=== PATIENT | female | born 1980 | race Two or more races ===

== ENCOUNTER 2023-03-26 20:36 | Outpatient (REF) | payer BC, SELFPAY ==
[2023-03-31 17:07] LABS: Age Gdln ACOG Testing Note (.); HPV Aptima Negative (Negative); IGP, Aptima HPV, rfx 16/18,45 Note (.)
== END 2023-03-26 20:37 | disposition home or self-care (01) ==
LOC: LAB 20:36
PROVIDERS: PCP Family Medicine; Visit Provider Physician Assistant
DX: Z01.419 Encounter for gynecological examination (general) (routine) without abnormal findings (principal)
CPT/HCPCS: 87624; G0145

== ENCOUNTER 2023-03-27 14:31 | Outpatient (OUT) | payer BC, SELFPAY ==
[2023-03-27 14:44] LABS: Basophils Percent Auto 0.4 % (0.2-2.0); Eosinophils Absolute Auto 0.1 10^3/uL (0.0-0.7); Eosinophils Percent Auto 1.4 % (0.9-7.0); Hemoglobin 13.7 g/dL (12.0-16.0); Immature Granulocytes Abs Auto 0.04 10^3/uL (0.00-0.03); Immature Granulocytes Pct Auto 0.4 % (0.0-0.5); Lymphocytes Absolute Auto 2.8 10^3/uL (1.2-3.8); Lymphocytes Percent Auto 29.8 % (20.5-60.0); Mean Corpuscular HGB Conc 34.3 g/dL (29.9-35.2); Mean Corpuscular Hemoglobin 30.3 pg (26.7-34.0); Mean Corpuscular Volume 88.5 fL (81.0-99.0); Mean Platelet Volume 9.7 fL (9.5-13.5); Monocytes Absolute Auto 0.6 10^3/uL (0.3-0.8); Monocytes Percent Auto 6.6 % (1.7-12.0); Neutrophils Absolute Auto 5.7 10^3/uL (1.4-6.5); Neutrophils Percent Auto 61.4 % (43.0-75.0); Platelet Count 326 10^3/uL (150-450); Red Blood Count 4.52 10^6/uL (4.20-5.40); White Blood Count 9.3 10^3/uL (4.0-11.0)
[2023-03-27 14:56] LABS: Prothrombin Time 9.6 sec (9.0-11.6)
[2023-03-27 15:01] LABS: INR <0.93
[2023-03-27 15:13] LABS: Estimated Average Glucose 94 mg/dL; Glycohemoglobin A1C 4.9 % (4.5-6.2)
[2023-03-27 15:44] LABS: HCG Quantitative <1 mIU/mL; Thyroid Stimulating Hormone 1.667 uIU/mL (0.358-3.740)
== END 2023-03-27 14:32 | disposition home or self-care (01) ==
LOC: LAB 14:31
PROVIDERS: PCP Family Medicine; Visit Provider Obstetrics & Gynecology
DX: R58 Hemorrhage, not elsewhere classified (principal)
CPT/HCPCS: 36415; 83036; 84439; 84443; 84702; 85025; 85610

== ENCOUNTER 2023-03-28 18:55 | Outpatient (OUT) | payer BC, SELFPAY ==
--- NOTE | 2023-03-28 19:02 | US_ITS ---
The [address] [address] Patient Name: NICOLASA COLBY MRN: [id number] date: 1980 Sex: F Assigned Patient Location: US Current Patient Location: Accession/Order Number: [id number] Exam Date: 03/28/2023 19:10 Report Date: 03/29/2023 07:38 At the request of: SAGE MARION Procedure: US pelvis w/ transvaginal EXAMINATION: US pelvis w/ transvaginal HISTORY: BLEEDING [id number] COMPARISON: No relevant comparison available. FINDINGS: The uterus is normal in size, contour and echotexture measuring 7.3 x 4.0 x 5.2 cm. No focal myometrial mass The endometrium measures 9 mm, normal. The right ovary measures 2.7 x 1.5 x 2.1 cm. Normal color and Doppler flow. 1.4 cm area of anechoic echogenicity, follicle versus cyst. The left ovary measures 3.5 x 2.2 x 2.5 cm. Normal color Doppler flow. Area of hypoechogenicity measuring 2.7 cm with some low level echoes and possibly calcification but no definite internal color flow Small amount of free pelvic fluid likely physiologic US/US pelvis w/ transvaginal IMPRESSION: 2.7 cm left ovarian cystic lesion, I favor a complex cyst or collapsing functional cyst Electronically authenticated by: FAYE MEDEL Date: 03/29/2023 07:38
== END 2023-03-28 18:56 | disposition home or self-care (01) ==
LOC: US 18:55
PROVIDERS: PCP Family Medicine; Visit Provider Obstetrics & Gynecology
DX: R58 Hemorrhage, not elsewhere classified (principal); N83.292 Other ovarian cyst, left side
CPT/HCPCS: 76830; 76856

== ENCOUNTER 2023-05-01 09:26 | Outpatient (OUT) | payer BC, SELFPAY ==
[2023-05-01 09:38] LABS: Bilirubin Urine NEGATIVE (NEGATIVE); Blood Urine TRACE-I (NEGATIVE); Clarity Urine CLEAR (CLEAR); Color Urine LT. YELLOW (YELLOW); Glucose Urine UA NEGATIVE (NEGATIVE); Ketones Urine TRACE mg/dL (NEGATIVE); Leukocyte Esterase Urine NEGATIVE (NEGATIVE); Nitrite Urine NEGATIVE (NEGATIVE); Protein Urine NEGATIVE (NEG/TRACE); Specific Gravity Urine <=1.005 (1.005-1.025); Urobilinogen Urine 0.2 EU/dL (0.2-1.0)
[2023-05-01 09:47] LABS: Bacteria Urine TRACE #/HPF (NONE SEEN); Cast Seen? NONE SEEN #/LPF (NONE SEEN); Crystals Seen? None Seen #/HPF (None Seen); Mucus Urine NONE SEEN (NONE SEEN); RBC Urine 0-2 #/HPF (0-2); Squamous Epithelial Cell Urine FEW #/LPF (NONE/RARE); WBC Urine NONE SEEN #/HPF (NONE SEEN)
== END 2023-05-01 09:27 | disposition home or self-care (01) ==
LOC: LAB 09:26
PROVIDERS: PCP Family Medicine; Visit Provider Family Medicine
DX: R30.0 Dysuria (principal)
CPT/HCPCS: 81001; 87086

== ENCOUNTER 2023-05-21 16:24 | Outpatient (OUT) | payer BC, SELFPAY ==
--- NOTE | 2023-05-21 | MM_ITS ---
Patient Name: NICOLASA COLBY MR#: [id number] : 1980 Exam Date: 05/21/2023 Ordering Doctor: DR Vince Escudero . RADIOLOGY REPORT PROCEDURE: MM TOMOSYNTHESIS SCREENING BI COMPARISON: MG MAMM SCREEN 3D DAYANNA CAD, 05/09/2022. MG MAMM SCREEN 3D DAYANNA CAD, 04/27/2021. INDICATIONS: Screening for malignant Calculator Name NCI Breast Cancer Risk Assessment Tool 5 Year Breast Cancer Risk 0.70% Lifetime Breast Cancer Risk 9.40% Personal Breast Cancer No Personal Ovarian Cancer No Treatments None Family Cancers Aunt-maternal with ovarian cancer at age 58; Mother with uterine cancer at age 34; Aunt-paternal with liver cancer at age ~50. LOCATION: [facility] BREAST COMPOSITION: Scattered areas fibroglandular density. FINDINGS: DIAGNOSTIC CATEGORY 1--NEGATIVE. RIGHT BREAST: No significant suspicious finding. No significant change has occurred. LEFT BREAST: No significant suspicious finding. No significant change has occurred. RECOMMENDATIONS: ROUTINE MAMMOGRAM AND CLINICAL EVALUATION IN 12 MONTHS. PLEASE NOTE: A NORMAL MAMMOGRAM DOES NOT EXCLUDE THE POSSIBILITY OF BREAST CANCER. A CLINICALLY SUSPICIOUS PALPABLE LUMP SHOULD BE BIOPSIED. Dictated by: Humberto Wahl M.D. on 05/22/2023 at 13:04 Approved by: Humberto Wahl M.D. on 05/22/2023 at 13:09
== END 2023-05-21 16:25 | disposition home or self-care (01) ==
LOC: MAMMO 16:25
PROVIDERS: PCP Family Medicine; Visit Provider Obstetrics & Gynecology
DX: Z12.31 Encounter for screening mammogram for malignant neoplasm of breast (principal); Z80.41 Family history of malignant neoplasm of ovary; Z80.8 Family history of malignant neoplasm of other organs or systems
CPT/HCPCS: 77063; 77067

== ENCOUNTER 2023-06-05 | Outpatient (REF) | payer BC, SELFPAY ==
--- OUTSIDE RECORDS SUMMARY | 2023-07-15 08:24 | XMS_ITS | CCD ---
Author Name Unknown Address [address] [place] [address] Organization [facility] Care Team Providers Care Porcelain Finisher Name Role Phone HOY ., DR LAVARADO Admitting Unavailable HOY ., DR ALVARADO Attending [...] ALVARADO Consulting Unavailable Trupti Santos Unavailable SAGE ESCUDERO Attending Unavailable SAGE ESCUDERO Attending Unavailable Sage Escudero Attending Provider Sage Escudero Attending Unavailable Sage Escudero Admitting Unavailable Medications Current Medications Medication Drug Class(es) [...] Test Name Value Interpretation Reference Range Facility [facility] 07-05-2023 L Specimen: [id number] Received: 07/08/23 Status: CANDELARIO Gregorio Num: [id number] Spec Type: Surgical Subm Dr: Sage Escudero Tissues: A Fallopian Tube - Sterilization (BILATERAL FT) B Soft Tissue/Surgical Margin-Other than Tumor,Mass,Lip or Shannon (RT OVARIAN CYS Procedures: HE/5, Gross/Micro L4, Gross/Micro L2 Age/ Patient Sex Location Account Attending Physician Nicolasa Richter 43/F LABELL [id number] Sage Escudero SPEC NUM: [id number] RECD: 07/08/23 STATUS: CANDELARIO GREGORIO NUM: [id number] NATHANIEL: 07/05/[address]: Sage Escudero ENTERED: 07/08/23 [facility] DR: Lencho,Lab SPEC TYPE: Surgical DEPT: KAREN MCNEIL ORDERED: HE/5, Gross/Micro L4, Gross/Micro L2 ORDERED: HE/5, Gross/Micro L4, Gross/Micro L2 Pathological Diagnosis A. Bilateral fallopian tubes, resection: No significant abnormality. B. Cyst wall, right ovary, resection: Benign serous cyst. Clinical Information Request for sterilization, pain, menorrhagia Gross Description A. Received in formalin labeled with the patient's name, date of and bilateral fallopian tubes are 2 segments of fimbriated fallopian tube with no laterality specified, 3.5 x 0.7 cm and 4.5 x 0.6 cm. Both segments are slightly tortuous and demonstrate a paulson- frye dull serosa. Sectioning demonstrates a central lumens. The fimbria are purple-red, lush, and otherwise unremarkable. [employer] sections are submitted in 4 cassettes as follows: A1-A2 - [place] segment with fimbria entirely submitted A3-A4 - Longer segment with fimbria entirely submitted B. Received in formalin labeled with the patient's name, date of and right ovarian cyst wall is a 1.6 x 1.5 x 0.3 cm aggregate of white-paulson soft tissue fragments consistent with cyst wall. The largest fragment is sectioned. Entirely submitted in one cassette labeled B1. Specimen: [id number] Received: 07/08/23 Status: CANDELARIO Sean Num: [id number] Spec Type: Surgical Subm : Sage Escudero Tissues: A Fallopian Tube - Sterilization (BILATERAL FT) B Soft Tissue/Surgical Margin-Other than Tumor,Mass,Lip or Shannon (RT OVARIAN CYS Procedures: HE/5, Gross/Micro L4, Gross/Micro L2 Patient: Nicolasa Richter [id number] (Continued) Specimen: [id number] Received: 07/08/23 (Continued) Signed (signatur e on file) Lazara Grant MD 07/10/232240 Specimen: [id number] Received: 07/08/23 Status: CANDELARIO Gregorio Num: [id number] Spec Type: Surgical Subm Dr: Sage Escudero Tissues: A Fallopian Tube - Sterilization (BILATERAL FT) B Soft Tissue/Surgical Margin-Other than Tumor,Mass,Lip or Shannon (RT OVARIAN CYS Procedures: HE/5, Gross/Micro L4, Gross/Micro L2 Patient: Nicolasa Richter [id number] (Continued) Specimen: [id number] Received: 07/08/23 (Continued) CPT Codes 92161, 71464 Specimen: [id number] Received: 07/08/23 Status: CANDELARIO Gregorio Num: [id number] Spec Type: Surgical Subm Dr: Sage Escudero Tissues: A Fallopian Tube - Sterilization (BILATERAL FT) B Soft Tissue/Surgical Margin-Other than Tumor,Mass,Lip or Shannon (RT OVARIAN CYS Procedures: HE/5, Gross/Micro L4, Gross/Micro L2 Patient: Nicolasa Richter [id number] (Continued) Signed (signatur e on file) Lazara Grant MD 07/10/23 2240 [facility] Quick Strepon 04-01-2023 S. pyogenes Org specific cx Ql (Throat) Positive [facility] Other Quick Strep [facility] Other Covid-19 PCR ([facility])on SARS-CoV-2 (COVID-19) RNA ZOILA+probe Ql (Unsp spec) Not detected Normal NOT DETECTED [facility] Comment on above: Result Comment: When [...] for this test is supported by the Correspondence Coordinator of Health and Human Service's declaration that [...] longer be used). Performed By: #### C [facility] #### [facility] [address] [place] [address] Dr. Cierra Sinha INFLUENZA A AND B AGon 07[facility] Normal [facility] Comment on above: Result Comment: Nega tive for Flu A protein angiten. Infection due to Flu A cannot be ruled out. Flu A angiten in the sample may be below the detection limit of the test. Performed By: #### C VDTBH #### [facility] [address] [place] [address] Dr. [facility] Normal [facility] Comment on above: Result Comment: Nega tive for Flu B protein antigen. Infection due to Flu B cannot be ruled out. Flu B antigen in the sample may be below the detection limit of the test. Performed By: #### C VDTBH #### [facility] [address] [place] [address] Dr. Cierra Sinha INFLUENZA A AG Negative Normal NEGATIVE SEE COMMENT [facility] Comment on above: Performed By: #### C VDTBH #### [facility] [address] [place] [address] Dr. Cierra Sinha INFLUENZA B AG Negative Normal NEGATIVE SEE COMMENT [facility] Comment on above: Performed By: #### C VDTBH #### [facility] [address] [place] [address] Dr. Cierra Sinha MG MAMM SCREEN 3D DAYANNA CADon 05-09-2022 MG MAMM SCREEN 3D DAYANNA CAD Patient: NICOLASA RICHTER Exam Date: 05/09/2022 : 1980 Gender:F Ordering : DR JENNY MOYER . Admission #: [id number] Family : Order #: [id number] CLICK HERE TO VIEW EXAM RADIOLOGY REPORT [...] liver cancer at age 50. LOCATION: [facility] BREAST COMPOSITION: Scattered areas fibroglandular density. [...] M.D. on 05/09/2022 at 16:13 Normal [facility] GROUP A STREP CULTUREon 04-10 S. pyogenes Ag Ql (Unsp spec) Culture Observations: NEGATIVE FOR GROUP A STREPTOCOCCUS. Normal [facility] Comment on above: Performed By: #### G RASTCX #### [facility] [address] [place] [address] Dr. Cierra Sinha STREPT SCREENon 04-24-2022 STREP SCREEN A Negative Normal NEGATIVE [facility] Comment on above: Performed By: #### S SCRN #### [facility] [address] [place] [address] Dr. Cierra Sinha INSULINon 04-03-2022 Insulin 11.1 uIU/mL Normal 2.6-24.9 [facility] Comment on above: Performed By: #### I NSULIN #### [facility] [address] [place] [address] Dr. Cierra Sinha CBC AUTO DIFFon 04-02-2022 BASO # 0.0 103/ul Normal 0.0-0.1 [facility] Comment on above: Performed By: #### C BC #### [facility] [address] [place] [address] Dr. Cierra Sinha Basophils/100 WBC (Bld) 0.4 % Normal 0.2-2.0 [facility] Comment on above: Performed By: #### C BC #### [facility] [address] [place] [address] Dr. Cierra Sinha EO # 0.1 103/ul Normal 0.0-0.7 [facility] Comment on above: Performed By: #### C BC #### [facility] [address] [place] [address] Dr. Cierra Sinha Eosinophils/100 WBC (Bld) 1.8 % Normal 0.9-7.0 [facility] Comment on above: Performed By: #### C BC #### [facility] [address] [place] [address] Dr. Cierra Sinha Erythrocyte distribution width (RBC) [Ratio] 12.2 % Normal 11.0-15.0 [facility] Comment on above: Performed By: #### C BC #### [facility] [address] [place] [address] Dr. Cierra Sinha Hematocrit (Bld) [Volume fraction] 37.9 % Normal 36.0-48.0 [facility] Comment on above: Performed By: #### C BC #### [facility] [address] [place] [address] Dr. Cierra Sinha Hemoglobin (Bld) [Mass/Vol] 12.7 g/dL Normal 12.0-16.0 [facility] Comment on above: Performed By: #### C BC #### [facility] [address] [place] [address] Dr. Cierra Sinha IG # 0.05 10e3/ul Critically high 0.00-0.03 [facility] Comment on above: Performed By: #### C BC #### [facility] [address] [place] [address] Dr. Cierra Sinha IG % 0.6 % Critically high 0.0-0.5 [facility] Comment on above: Performed By: #### C BC #### [facility] [address] [place] [address] Dr. Cierra Sinha LYMPH # 2.2 103/ul Normal 1.2-3.8 [facility] Comment on above: Performed By: #### C BC #### [facility] [address] [place] [address] Dr. Cierra Sinha Lymphocytes/100 WBC (Bld) 28.2 % Normal 20.5-60.0 [facility] Comment on above: Performed By: #### C BC #### [facility] [address] [place] [address] Dr. Cierra Sinha MANUAL DIFF REQ NO Normal [facility] Comment on above: Performed By: #### C BC #### [facility] [address] [place] [address] Dr. Cierra Sinha MCH (RBC) [Entitic mass] 29.6 pg Normal 26.7-34.0 [facility] Comment on above: Performed By: #### C BC #### [facility] [address] [place] [address] Dr. Cierra Sinha MCHC (RBC) [Mass/Vol] 33.5 g/dL Normal 29.9-35.2 [facility] Comment on above: Performed By: #### C BC #### [facility] [address] [place] [address] Dr. Cierra Sinha MCV (RBC) [Entitic vol] 88.3 fL Normal 81.0-99.0 [facility] Comment on above: Performed By: #### C BC #### [facility] [address] [place] [address] Dr. Cierra Sinha MONO # 0.6 103/ul Normal 0.3-0.8 [facility] Comment on above: Performed By: #### C BC #### [facility] [address] [place] [address] Dr. Cierra Sinha Monocytes/100 WBC (Bld) 7.4 % Normal 1.7-12.0 [facility] Comment on above: Performed By: #### C BC #### [facility] [address] [place] [address] Dr. Cierra Sinha NEUT # 4.8 103/ul Normal 1.4-6.5 [facility] Comment on above: Performed By: #### C BC #### [facility] [address] [place] [address] Dr. Cierra iSnha Neutrophils/100 WBC (Bld) 61.6 % Normal 43.0-75.0 [facility] Comment on above: Performed By: #### C BC #### [facility] [address] [place], [place] [id number] Dr. Cierra Sinha Platelet mean volume (Bld) [Entitic vol] 9.7 fL Normal 9.5-13.5 [facility] Comment on above: Performed By: #### C BC #### [facility] [address] [place] [address] Dr. Cierra Sinha PLT 280 103/ul Normal 150-450 [facility] Comment on above: Performed By: #### C BC #### [facility] [address] [address] [address] Cierra Sinha RBC 4.29 106/ul Normal 4.20-5.40 [facility] Comment on above: Performed By: #### C BC #### [facility] [address] [place] [address] Dr. Cierra Sinha WBC 7.9 103/ul Normal 4.0-11.0 [facility] Comment on above: Performed By: #### C BC #### [facility] [address] [place] [address] Dr. Cierra Sinha FREE THYROXINE INDEX T7on FTI 2.55 Normal 1.30-4.50 [facility] Comment on above: Performed By: #### T SH, LIPID, T7, CMP #### [facility] [address] [place] [address] Dr. Cierra Sinha T3U 29.0 % Critically low 30.0-39.0 [facility] Comment on above: Performed By: #### T SH, LIPID, T7, CMP #### [facility] [address] [place] [address] Dr. Cierra Sinha T4 [Mass/Vol] 8.80 ug/dL Normal 4.80-13.90 [facility] Comment on above: Performed By: #### T SH, LIPID, T7, CMP #### [facility] [address] [place] [address] Dr. Cierra Sinha GLYCOHEMOGLOBIN A1Con 2021 ADA RECOMMENDATION SEE BELOW Normal [facility] Comment on above: Result Comment: ADA RECOMMENDED LIMIT 4.0 - 6.0 ADA THERAPEUTIC TARGET < 7.0 ACTION SUGGESTED > 7.0 Performed By: #### C VDTBH #### [facility] [address] [address] [address] Cierra Sinha Glucose [Mass/Vol] 100 mg/dL Normal [facility] Comment on above: Performed By: #### C VDTBH #### [facility] [address] [address] [address] Cierra Sinha HbA1c (Bld) [Mass fraction] 5.1 % Normal 4.5-6.2 [facility] Comment on above: Performed By: #### C VDTBH #### [facility] [address] [address] [address] Cierra Sinha IRONon 04-02-2022 Iron [Mass/Vol] 83.0 ug/dL Normal 50.0-170.0 [facility] Comment on above: Performed By: #### C VDTBH #### [facility] [address] [place] [address] Dr. Cierra Sinha LIPID PROFILEon 04-02-2022 CHOL-HDL RATIO NORM SEE BELOW Normal [facility] Comment on above: Result Comment: 3.3 - 4.4 LOW RISK 4.4 - 7.1 AVERAGE RISK 7.1 - 11.0 MODERATE RISK >11.0 HIGH RISK Performed By: #### T SH, LIPID, T7, CMP #### [facility] [address] [place] [address] Dr. Cierra Sinha Cholesterol [Mass/Vol] 161 mg/dL Normal <=200 [facility] Comment on above: Performed By: #### T SH, LIPID, T7, CMP #### [facility] [address] [address] [address] Cierra Sinha Cholesterol in HDL [Mass/Vol] 52 mg/dL Normal 40-60 [facility] Comment on above: Performed By: #### T SH, LIPID, T7, CMP #### [facility] [address] [address] [address] Cierra Sinha Cholesterol in LDL [Mass/Vol] 97.6 mg/dL Normal [facility] Comment on above: Performed By: #### T SH, LIPID, T7, CMP #### [facility] [address] [address] [address] Cierra Sinha Cholesterol.total/Ch olesterol in HDL [Mass ratio] 3.1 {ratio} Normal [facility] Comment on above: Performed By: #### T SH, LIPID, T7, CMP #### [facility] [address] [address] [address] Cierra Sinha HDL NORMAL > or = 60 mg/dl - LOW CARDIOVASCULAR RISK <40 mg/dl - HIGH CARDIOVASCULAR RISK Normal [facility] Comment on above: Performed By: #### T SH, LIPID, T7, CMP #### [facility] [address] [place] [address] Dr. Cierra Sinha LDL CALC NORMAL SEE BELOW Normal [facility] Comment on above: Result Comment: <100 mg/dl OPTIMAL 100 - 129 mg/dl NEAR OR ABOVE OPTIMAL 130 - 159 mg/dl BORDERLINE HIGH 160 - 189 mg/dl HIGH >190 mg/dl VERY HIGH Performed By: #### T SH, LIPID, T7, CMP #### [facility] [address] [place] [address] Dr. Cierra Sinha Triglyceride [Mass/Vol] 57 mg/dL Normal <=150 [facility] Comment on above: Performed By: #### T SH, LIPID, T7, CMP #### [facility] [address] [place] [address] Dr. Cierra Sinha VLDL CALC 11.4 mg/dL Normal [facility] Comment on above: Performed By: #### T SH, LIPID, T7, CMP #### [facility] [address] [place] [address] Dr. Cierra Sinha PROF 14(COMP METB)on 022 Albumin [Mass/Vol] 3.6 g/dL Normal 3.4-5.0 [facility] Comment on above: Performed By: #### T SH, LIPID, T7, CMP #### [facility] [address] [place] [address] Dr. Cierra Sinha Albumin/Globulin [Mass ratio] 0.9 {ratio} Normal [facility] Comment on above: Performed By: #### T SH, LIPID, T7, CMP #### [facility] [address] [address] [address] Cierra Sinha ALP [Catalytic activity/Vol] 88 U/L Normal 46-116 [facility] Comment on above: Performed By: #### T SH, LIPID, T7, CMP #### [facility] [address] [address] [address] Cierra Sinha ALT [Catalytic activity/Vol] 26 U/L Normal 14-59 [facility] Comment on above: Performed By: #### T SH, LIPID, T7, CMP #### [facility] [address] [place] [address] Dr. Cierra Sinha Anion gap [Moles/Vol] 7.4 mmol/L Normal [facility] Comment on above: Performed By: #### T SH, LIPID, T7, CMP #### [facility] [address] [place] [address] Dr. Cierra Sinha AST [Catalytic activity/Vol] 19 U/L Normal 15-37 [facility] Comment on above: Performed By: #### T SH, LIPID, T7, CMP #### [facility] [address] [place] [address] Dr. Cierra Sinha Bilirubin [Mass/Vol] 0.5 mg/dL Normal 0.2-1.0 [facility] Comment on above: Performed By: #### T SH, LIPID, T7, CMP #### [facility] [address] [place] [address] Dr. Cierra Sinha Calcium [Mass/Vol] 8.6 mg/dL Normal 8.5-10.1 [facility] Comment on above: Performed By: #### T SH, LIPID, T7, CMP #### [facility] [address] [place] [address] Dr. Cierra Sinha Chloride [Moles/Vol] 102 mmol/L Normal 98-107 [facility] Comment on above: Performed By: #### T SH, LIPID, T7, CMP #### [facility] [address] [place] [address] Dr. Cierra Sinah CO2 [Moles/Vol] 30.0 mmol/L Normal 21.0-32.0 [facility] Comment on above: Performed By: #### T SH, LIPID, T7, CMP #### [facility] [address] [address] [address] Cierra Sinha Creatinine [Mass/Vol] 0.61 mg/dL Normal 0.55-1.02 [facility] Comment on above: Performed By: #### T SH, LIPID, T7, CMP #### [facility] [address] [address] [address] Cierra Sinha EGFR-AF STATELESS >60 Normal >=60 [facility] Comment on above: Performed By: #### T SH, LIPID, T7, CMP #### [facility] [address] [place] [address] Dr. Cierra Sinha EGFR-NON AF STATELESS >60 Normal >=60 [facility] Comment on above: Performed By: #### T SH, LIPID, T7, CMP #### [facility] [address] [address] [address] Cierra Sinha Globulin (S) [Mass/Vol] 4.0 g/dL Normal [facility] Comment on above: Performed By: #### T SH, LIPID, T7, CMP #### [facility] [address] [address] [address] Cierra Sinha Glucose [Mass/Vol] 90 mg/dL Normal 74-106 [facility] Comment on above: Performed By: #### T SH, LIPID, T7, CMP #### [facility] [address] [address] [address] Cierra Sinha Potassium [Moles/Vol] 3.4 mmol/L Critically low 3.5-5.1 [facility] Comment on above: Performed By: #### T SH, LIPID, T7, CMP #### [facility] [address] [address] [address] Cierra Sinha Protein [Mass/Vol] 7.6 g/dL Normal 6.4-8.2 [facility] Comment on above: Performed By: #### T SH, LIPID, T7, CMP #### [facility] [address] [place], [place] [address] Dr. Cierra Sinha Sodium [Moles/Vol] 136 mmol/L Normal 136-145 [facility] Comment on above: Performed By: #### T SH, LIPID, T7, CMP #### [facility] [address] [address] [address] Cierra Sinha Urea nitrogen [Mass/Vol] 8.0 mg/dL Normal 7.0-18.0 [facility] Comment on above: Performed By: #### T SH, LIPID, T7, CMP #### [facility] [address] [address] [address] Cierra Sinha Urea nitrogen/Creatinine [Mass ratio] 13.1 mg/mg Normal [facility] Comment on above: Performed By: #### T SH, LIPID, T7, CMP #### [facility] [address] [address] [address] Cierra Sinha TSHon 04-02-2022 TSH 1.352 uIU/mL Normal 0.358-3.740 [facility] Comment on above: Performed By: #### T SH, LIPID, T7, CMP #### [facility] [address] [address] [address] Cierra Sinha Vital Signs Date Time Vital Sign Value Performing Clinician Facility 04-01-2023 17:55-0400 Body height 160.02 cm Trupti Santos Other [facility] Other 04-01-2023 17:55-0400 Body mass index (BMI) [Ratio] 33.09 kg/m2 Trupti Santos Other [facility] Other 04-01-2023 17:55-0400 Body temperature 98.3 [degF] Trupti Santos Other [facility] Other 04-01-2023 17:55-0400 Body weight 84.73 kg Trupti Santos Other [facility] Other 04-01-2023 17:55-0400 Respiratory rate 18 /min Trupti Tom Other [facility] Other 04-01-2023 17:55-0400 SaO2% (BldA) [Mass fraction] 99 % Trupti Tom Other [facility] Other Encounters Encounter Date Encounter Type Care Provider Facility Start: 07-05-2023 End: 07-05-2023 ambulatory Sage Kena Facility:[facility] Start: 07-05-2023 End: 07-05-2023 ambulatory Sage Kena Work Phone: [facility] Work Phone: Start: 07-05-2023 End: 07-05-2023 Departed Referred Sage Kena Work Phone: [facility] Start: 06-05-2023 End: 06-05-2023 ambulatory SAGE KENA Not Available Start: 04-23-2023 End: 04-23-2023 ambulatory SAGE KENA Not Available Start: 04-01-2023 End: 04-01-2023 ambulatory Trupti Santos Other [facility] Other Start: 04-01-2023 Office outpatient vi sit [...] abnormal findings DR JENNY MOYER . [facility] Start: 04-02-2022 End: 04-03-[address] JENNY MOYER . Facility: Start: 04-02-2022 End: 04-03-2022 Encounter for general adult medical examination without abnormal findings DR JENNY MOYER . Facility: Payers Date Payer Category Payer Self-pay 1980 Unknown [id number] 1980 Unknown [id number] 1980 Unknown [id number] 1980 Unknown [id number] 1980 Unknown [id number] 1980 Unknown [id number] 1980 Unknown [id number] 1959 Unknown [id number] 1959 Unknown [id number] Unknown Regular Auto/Medical . [id number] Unknown [facility] 281 [id number] Social History Date Type Detail Facility Unknown if ever smoked [facility] Other Sex Assigned At Sex Assigned At Bir th [facility] Other Start: 1980 Sex Assigned At Female F [facility] Evaluation note 04-01-2023 Note Date & Type [...] lozenges for comfort, push fluids and rest. [facility] Other Evaluation note Note Date & Type Note Facility Evaluation note No assessment information availa [facility] Work Phone: Summary Purpose Family History No Family History Records FoundNo Family History Records FoundNo Family History Records Found Advance Directives No Advanced Directives Records FoundNo Advanced Directives Records FoundNo Advanced Directives Records Found Additional Source Comments INFORMATION SOURCE (unrecogn ized section and content) DATE CREATED AUTHOR 10/12/2022 [facility] DATE CREATED AUTHOR AUTHOR'S ORGANIZ ATION 06/07/2023 [facility] EPIC DATE CREATED AUTHOR AUTHOR'S ORGANIZ ATION 07/12/2023 [facility] REASON FOR VISIT (unrecogniz ed section and content) SORE THROAT, TONSILS Care Teams (unrecognized sec tion and content) Team Status: Inactive Member Role Status Dates Sage Escudero Attending Provider Active Start: Cameron doan 2023 End: July 05, 2023 Goals (unrecognized section and content) Goals may be documented in a n alternate section FOR RECORDS PERTAINING TO PATIENTS WHO ARE [...] BE BASED ON THE PRIMARY CLINICAL RECORDS. [facility] [employer] [facility]. provides no warranty or guarantee of the accuracy or completeness of information in this document.
== END 2023-06-05 00:01 ==
LOC: LAB
PROVIDERS: PCP Family Medicine; Visit Provider Obstetrics & Gynecology
DX: N92.1 Excessive and frequent menstruation with irregular cycle (principal)
CPT/HCPCS: 88305

== ENCOUNTER 2023-06-26 13:30 | Outpatient (OUT) | payer BC, SELFPAY ==
--- OUTSIDE RECORDS SUMMARY | 2023-06-26 13:35 | XMS_ITS | CCD ---
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 Name Role Phone HOY ., DR ALVARADO Admitting Unavailable HOY ., DR ALVARADO Attending Unavailable HOY ., DR ALVARADO Consulting Unavailable HOY ., DR ALVARADO Primary Care Unavailable HOY ., DR ALVARADO Primary Care Unavailable HAY ., DR CARRINGTON Attending Unavailable HAY ., DR CARRINGTON Consulting Unavailable HAY ., DR CARRINGTON Admitting Unavailable HOY ., DR ALVARADO Primary Care Unavailable HOY ., DR ALVARADO Admitting Unavailable HOY ., DR ALVARADO Attending Unavailable HOY ., DR ALVARADO Consulting Unavailable HOY ., DR ALVARADO Primary Care Unavailable HOY ., DR ALVARADO Admitting Unavailable HOY ., DR ALVARADO Attending Unavailable HOY ., DR ALVARADO Consulting Unavailable Humberto Wahl Consulting Unavailable HOY ., DR ALVARADO Primary Care Unavailable HOY ., DR ALVARADO Admitting Unavailable HOY ., DR ALVARADO Attending Unavailable HOY ., DR ALVARADO Consulting Unavailable Trupti Santos Unavailable SAGE MARION Attending Unavailable SAGE MARION Attending Unavailable Medications Current Medications Medication Drug Class(es) Dates Sig (Normalized) Sig (Original) amoxicillin 500 mg oral capsule (1 source) Penicillin-class Antibacterial Start: 3 take 1 capsule by mouth every twelve hours Amoxicillin 500 MG 1 tablet Orally two times a day for 10 days Mar, Active cetirizine hydrochloride 10 mg oral tablet (1 source) Histamine-1 Receptor Antagonist take 1 tablet by mouth once daily ZyrTEC 10 MG 1 tablet Orally Once a day Active methylPREDNISolone 4 mg oral tablet (1 source) Corticosteroid Start: 3 methylPREDNISolone 4 MG as directed Orally Mar, Active Mometasone (2 sources) Corticosteroid Nasonex Active Problems Active Problems Problem Classification Problem Date Documented Da te Episodic/Chronic Other upper respiratory infections (10 sources) Acute pharyngitis, unspecified; Translations: [Streptococcal pharyngitis] Onset: 04-24-2022 Episodic Unclassified (3 sources) CONTACT W/AND (SUSP) EXPOS COVID-19; Translations: [CONTACT W/AND (SUSP) EXPOS COVID-19] Onset: 07-15-2022 Past or Other Problems Problem Classification Problem Date Documented Da te Episodic/Chronic Other screening for suspected conditions (not mental disorders or infectious disease) (4 sources) Encounter for screening mammogram for malignant neoplasm of breast; Translations: [ENC SCR MAMMO MALIG NEOPLASM BREAST] Onset: 05-09-2022 Episodic Residual codes; unclassified (1 source) Family history of malignant neoplasm of ovary; Translations: [FAM HX MALIGNANT NEOPLASM OVARY] Onset: 05-12-2022 Episodic Residual codes; unclassified (1 source) Family history of malignant neoplasm of other organs or systems; Translations: [FAM HX MALIG NEOPLASM OTH ORGN/SYS] Onset: 05-12-2022 Episodic Unclassified (1 source) CONTACT W/AND (SUSP) EXPOS COVID-19; Translations: [CONTACT W/AND (SUSP) EXPOS COVID-19] Onset: 07-12-2022 Results Test Name Value Interpretation Reference Range Facility [facility]rep[facility] 04-01-2023 S. pyogenes Org specific cx Ql (Throat) Positive [facility] Other Quick Strep [facility] Other Covid-19 PCR ([facility])on SARS-CoV-2 (COVID-19) RNA ZOILA+probe Ql (Unsp spec) Not detected Normal NOT DETECTED [facility] Comment on above: Result Comment: When diagnostic testing is negative, the possibility of a false negative should be considered in the context of a patient's recent exposures and the presence of clinical signs and symptoms consistent with SARS-CoV-2. This test is not yet approved or cleared by the [place] FDA. When there are no FDA-approved or cleared tests available, and other criteria are met, FDA can make tests available under an emergency access mechanism called an Emergency Use Authorization (EUA). The EUA for this test is supported by the [place] of Health and Human Service's declaration that circumstances exist to justify the emergency use of in vitro diagnostics for the detection and/or diagnosis of the virus that causes COVID-19. This EUA will remain in effect for the duration of the COVID-19 declaration justifying emergency of IVDs, unless it is terminated or revoked by the FDA (after which the test may no longer be used). Performed By: #### C VDTBH #### [facility] [address] [place] [address] Dr. Cierra Sinha INFLUENZA A AND B AGon 07-12 INFLUANE SEE BELOW Normal [facility] Comment on above: Result Comment: Nega tive for Flu A protein angiten. Infection due to Flu A cannot be ruled out. Flu A angiten in the sample may be below the detection limit of the test. Performed By: #### C VDTBH #### [facility] [address] [place] [address] Dr. Cierra Sinha INFLUBNEG SEE BELOW Normal [facility] Comment on above: Result Comment: Nega tive for Flu B protein antigen. Infection due to Flu B cannot be ruled out. Flu B antigen in the sample may be below the detection limit of the test. Performed By: #### C VDTBH #### [facility] [address] [place] [address] Dr. Cierra Sinha INFLUENZA A AG Negative Normal NEGATIVE SEE COMMENT [facility] Comment on above: Performed By: #### C VDTBH #### [facility] [address] [place] [address] Dr. Cierra Sinha INFLUENZA B AG Negative Normal NEGATIVE SEE COMMENT [facility] Comment on above: Performed By: #### C VDTBH #### [facility] [address] [place] [address] Dr. Cierra Sinha MG MAMM SCREEN 3D DAYANNA CADon 05-09-2022 MG MAMM SCREEN 3D DAYANNA CAD Patient: NICOLASA COLBY Exam Date: 05/09/2022 : 1980 Gender:F Ordering : DR JENNY MOYER . Admission #: [id number] Family : Order #: [id number] CLICK HERE TO VIEW EXAM RADIOLOGY REPORT PROCEDURE: MAMMOGRAM SCREENING 3D BILATERAL CAD COMPARISON: MG MAMM SCREEN 3D DAYANNA CAD, 04/27/2021. INDICATIONS: Screening mammography Calculator Name NCI Breast Cancer Risk Assessment Tool 5 Year Breast Cancer Risk 0.60% Lifetime Breast Cancer Risk 9.50% Personal Breast Cancer No Personal Ovarian Cancer No Treatments None Family Cancers Aunt-maternal with ovarian cancer at age 58; Mother with uterine cancer at age 34; Aunt-paternal with liver cancer at age 50. LOCATION: [facility] BREAST COMPOSITION: Scattered areas fibroglandular density. FINDINGS: DIAGNOSTIC CATEGORY 1--NEGATIVE. RIGHT BREAST: No significant suspicious finding. No significant change has occurred. LEFT BREAST: No significant suspicious finding. No significant change has occurred. RECOMMENDATIONS: ROUTINE MAMMOGRAM AND CLINICAL EVALUATION IN 12 MONTHS. PLEASE NOTE: A NORMAL MAMMOGRAM DOES NOT EXCLUDE THE POSSIBILITY OF BREAST CANCER. A CLINICALLY SUSPICIOUS PALPABLE LUMP SHOULD BE BIOPSIED. Dictated by: Humberto Wahl M.D. on 05/09/2022 at 16:11 Approved by: Humberto Wahl M.D. on 05/09/2022 at 16:13 Normal [facility] GROUP A STREP CULTUREon 04-10 S. pyogenes Ag Ql (Unsp spec) Culture Observations: NEGATIVE FOR GROUP A STREPTOCOCCUS. Normal [facility] Comment on above: Performed By: #### G RASTCX #### [facility] [address] [place] [address] Dr. Cierra Sinha STREPT SCREENon 04-24-2022 STREP SCREEN A Negative Normal NEGATIVE [facility] Comment on above: Performed By: #### S SCRN #### [facility] [address] [place] [address] Dr. Cierra Sinha INSULINon 04-03-2022 Insulin 11.1 uIU/mL Normal 2.6-24.9 [facility] Comment on above: Performed By: #### I NSULIN #### [facility] [address] [place] [address] Dr. Cierra Sinha CBC AUTO DIFFon 04-02-2022 BASO # 0.0 103/ul Normal 0.0-0.1 [facility] Comment on above: Performed By: #### C BC #### [facility] [address] [address] [address] Cierra Sinha Basophils/100 WBC (Bld) 0.4 % Normal 0.2-2.0 [facility] Comment on above: Performed By: #### C BC #### [facility] [address] [address] [address] Cierra Sinha EO # 0.1 103/ul Normal 0.0-0.7 [facility] Comment on above: Performed By: #### C BC #### [facility] [address] [address] [address] Cierra Sinha Eosinophils/100 WBC (Bld) 1.8 % Normal 0.9-7.0 [facility] Comment on above: Performed By: #### C BC #### [facility] [address] [place] [address] Dr. Cierra Sinha Erythrocyte distribution width (RBC) [Ratio] 12.2 % Normal 11.0-15.0 [facility] Comment on above: Performed By: #### C BC #### [facility] [address] [place] [address] Dr. Cierra Sinha Hematocrit (Bld) [Volume fraction] 37.9 % Normal 36.0-48.0 [facility] Comment on above: Performed By: #### C BC #### [facility] [address] [place] [address] Dr. Cierra Sinha Hemoglobin (Bld) [Mass/Vol] 12.7 g/dL Normal 12.0-16.0 [facility] Comment on above: Performed By: #### C BC #### [facility] [address] [place] [address] Dr. Cierra Sinha IG # 0.05 10e3/ul Critically high 0.00-0.03 [facility] Comment on above: Performed By: #### C BC #### [facility] [address] [place] [address] Dr. Cierra Sinha IG % 0.6 % Critically high 0.0-0.5 [facility] Comment on above: Performed By: #### C BC #### [facility] [address] [place] [address] Dr. Cierra Sinha LYMPH # 2.2 103/ul Normal 1.2-3.8 [facility] Comment on above: Performed By: #### C BC #### [facility] [address] [place] [address] Dr. Cierra Sinha Lymphocytes/100 WBC (Bld) 28.2 % Normal 20.5-60.0 [facility] Comment on above: Performed By: #### C BC #### [facility] [address] [place] [address] Dr. Cierra Sinha MANUAL DIFF REQ NO Normal [facility] Comment on above: Performed By: #### C BC #### [facility] [address] [place] [address] Dr. Cierra Sinha MCH (RBC) [Entitic mass] 29.6 pg Normal 26.7-34.0 [facility] Comment on above: Performed By: #### C BC #### [facility] [address] [place] [address] Dr. Cierra Sinha MCHC (RBC) [Mass/Vol] 33.5 g/dL Normal 29.9-35.2 [facility] Comment on above: Performed By: #### C BC #### [facility] [address] [place] [address] Dr. Cierra Sinha MCV (RBC) [Entitic vol] 88.3 fL Normal 81.0-99.0 [facility] Comment on above: Performed By: #### C BC #### [facility] [address] [place] [address] Dr. Cierra Sinha MONO # 0.6 103/ul Normal 0.3-0.8 [facility] Comment on above: Performed By: #### C BC #### [facility] [address] [place] [address] Dr. Cierra Sinha Monocytes/100 WBC (Bld) 7.4 % Normal 1.7-12.0 [facility] Comment on above: Performed By: #### C BC #### [facility] [address] [address] [address] Cierra Sinha NEUT # 4.8 103/ul Normal 1.4-6.5 [facility] Comment on above: Performed By: #### C BC #### [facility] [address] [place] [address] Dr. Cierra Sinha Neutrophils/100 WBC (Bld) 61.6 % Normal 43.0-75.0 [facility] Comment on above: Performed By: #### C BC #### [facility] [address] [place] [address] Dr. Cierra Sinha Platelet mean volume (Bld) [Entitic vol] 9.7 fL Normal 9.5-13.5 [facility] Comment on above: Performed By: #### C BC #### [facility] [address] [place] [address] Dr. Cierra Sinha PLT 280 103/ul Normal 150-450 [facility] Comment on above: Performed By: #### C BC #### [facility] [address] [place] [address] Dr. Cierra Sinha RBC 4.29 106/ul Normal 4.20-5.40 [facility] Comment on above: Performed By: #### C BC #### [facility] [address] [place] [address] Dr. Cierra Sinha WBC 7.9 103/ul Normal 4.0-11.0 [facility] Comment on above: Performed By: #### C BC #### [facility] [address] [place] [address] Dr. Cierra Sinha FREE THYROXINE INDEX T7on FTI 2.55 Normal 1.30-4.50 [facility] Comment on above: Performed By: #### T SH, LIPID, T7, CMP #### [facility] [address] [place] [address] Dr. Cierra Sinha T3U 29.0 % Critically low 30.0-39.0 [facility] Comment on above: Performed By: #### T SH, LIPID, T7, CMP #### [facility] [address] [place] [address] Dr. Cierra Sinha T4 [Mass/Vol] 8.80 ug/dL Normal 4.80-13.90 [facility] Comment on above: Performed By: #### T SH, LIPID, T7, CMP #### [facility] [address] [address] [address] Cierra Sinha GLYCOHEMOGLOBIN A1Con 2021 ADA RECOMMENDATION SEE BELOW Normal [facility] Comment on above: Result Comment: ADA RECOMMENDED LIMIT 4.0 - 6.0 ADA THERAPEUTIC TARGET < 7.0 ACTION SUGGESTED > 7.0 Performed By: #### C VDTBH #### [facility] [address] [address] [address] Cierra Sinha Glucose [Mass/Vol] 100 mg/dL Normal [facility] Comment on above: Performed By: #### C VDTBH #### [facility] [address] [place] [address] Dr. Cierra Sinha HbA1c (Bld) [Mass fraction] 5.1 % Normal 4.5-6.2 [facility] Comment on above: Performed By: #### C VDTBH #### [facility] [address] [address] [address] Cierra Sinha IRONon 04-02-2022 Iron [Mass/Vol] 83.0 ug/dL Normal 50.0-170.0 [facility] Comment on above: Performed By: #### C VDTBH #### [facility] [address] [place] [address] Dr. Cierra Sinha LIPID PROFILEon 04-02-2022 CHOL-HDL RATIO NORM SEE BELOW Normal [facility] Comment on above: Result Comment: 3.3 - 4.4 LOW RISK 4.4 - 7.1 AVERAGE RISK 7.1 - 11.0 MODERATE RISK >11.0 HIGH RISK Performed By: #### T SH, LIPID, T7, CMP #### [facility] [address] [address] [address] Cierra Sinha Cholesterol [Mass/Vol] 161 mg/dL Normal <=200 [facility] Comment on above: Performed By: #### T SH, LIPID, T7, CMP #### [facility] [address] [address] [address] Cierra Sinha Cholesterol in HDL [Mass/Vol] 52 mg/dL Normal 40-60 [facility] Comment on above: Performed By: #### T SH, LIPID, T7, CMP #### [facility] [address] [address] [address] Cierra Sinha Cholesterol in LDL [Mass/Vol] 97.6 mg/dL Normal [facility] Comment on above: Performed By: #### T SH, LIPID, T7, CMP #### [facility] [address] [address] [address] Cierra Sinha Cholesterol.total/Ch olesterol in HDL [Mass ratio] 3.1 {ratio} Normal [facility] Comment on above: Performed By: #### T SH, LIPID, T7, CMP #### [facility] [address] [address] [address] Cierra Sinha HDL NORMAL > or = 60 mg/dl - LOW CARDIOVASCULAR RISK <40 mg/dl - HIGH CARDIOVASCULAR RISK Normal [facility] Comment on above: Performed By: #### T SH, LIPID, T7, CMP #### [facility] [address] [address] [address] Cierra Sinha LDL CALC NORMAL SEE BELOW Normal [facility] Comment on above: Result Comment: <100 mg/dl OPTIMAL 100 - 129 mg/dl NEAR OR ABOVE OPTIMAL 130 - 159 mg/dl BORDERLINE HIGH 160 - 189 mg/dl HIGH >190 mg/dl VERY HIGH Performed By: #### T SH, LIPID, T7, CMP #### [facility] [address] [address] [address] Cierra Sinha Triglyceride [Mass/Vol] 57 mg/dL Normal <=150 [facility] Comment on above: Performed By: #### T SH, LIPID, T7, CMP #### [facility] [address] [address] [address] Cierra Sinha VLDL CALC 11.4 mg/dL Normal [facility] Comment on above: Performed By: #### T SH, LIPID, T7, CMP #### [facility] [address] [address] [address] Cierra Sinha PROF 14(COMP METB)on 022 Albumin [Mass/Vol] 3.6 g/dL Normal 3.4-5.0 [facility] Comment on above: Performed By: #### T SH, LIPID, T7, CMP #### [facility] [address] [address] [address] Cierra Sinha Albumin/Globulin [Mass ratio] 0.9 {ratio} Normal [facility] Comment on above: Performed By: #### T SH, LIPID, T7, CMP #### [facility] [address] [address] [address] Cierra Sinha ALP [Catalytic activity/Vol] 88 U/L Normal 46-116 [facility] Comment on above: Performed By: #### T SH, LIPID, T7, CMP #### [facility] [address] [place] [address] Dr. Cierra Sinha ALT [Catalytic activity/Vol] 26 U/L Normal 14-59 [facility] Comment on above: Performed By: #### T SH, LIPID, T7, CMP #### [facility] [address] [address] [address] Cierra Sinha Anion gap [Moles/Vol] 7.4 mmol/L Normal [facility] Comment on above: Performed By: #### T SH, LIPID, T7, CMP #### [facility] [address] [address] [address] Cierra Sinha AST [Catalytic activity/Vol] 19 U/L Normal 15-37 [facility] Comment on above: Performed By: #### T SH, LIPID, T7, CMP #### [facility] [address] [address] [address] Cierra Sniha Bilirubin [Mass/Vol] 0.5 mg/dL Normal 0.2-1.0 [facility] Comment on above: Performed By: #### T SH, LIPID, T7, CMP #### [facility] [address] [address] [address] Cierra Sinha Calcium [Mass/Vol] 8.6 mg/dL Normal 8.5-10.1 [facility] Comment on above: Performed By: #### T SH, LIPID, T7, CMP #### [facility] [address] [address] [address] Cierra Sinha Chloride [Moles/Vol] 102 mmol/L Normal 98-107 [facility] Comment on above: Performed By: #### T SH, LIPID, T7, CMP #### [facility] [address] [address] [address] Cierra Sinha CO2 [Moles/Vol] 30.0 mmol/L Normal 21.0-32.[address] [facility] Comment on above: Performed By: #### T SH, LIPID, T7, CMP #### [facility] [address] [place] [address] Dr. Cierra Sinha Creatinine [Mass/Vol] 0.61 mg/dL Normal 0.55-1.02 [facility] Comment on above: Performed By: #### T SH, LIPID, T7, CMP #### [facility] [address] [place] [address] Dr. Cierra Sinha EGFR-AF SOUTH AFRICAN >60 Normal >=[address] [facility] Comment on above: Performed By: #### T SH, LIPID, T7, CMP #### [facility] [address] [place] [address] Dr. Cierra Sinha EGFR-NON AF SOUTH AFRICAN >60 Normal >=60 [facility] Comment on above: Performed By: #### T SH, LIPID, T7, CMP #### [facility] [address] [place] [address] Dr. Cierra Sinha Globulin (S) [Mass/Vol] 4.0 g/dL Normal [facility] Comment on above: Performed By: #### T SH, LIPID, T7, CMP #### [facility] [address] [place] [address] Dr. Cierra Sinha Glucose [Mass/Vol] 90 mg/dL Normal 74-106 [facility] Comment on above: Performed By: #### T SH, LIPID, T7, CMP #### [facility] [address] [address] [address] Cierra Sinha Potassium [Moles/Vol] 3.4 mmol/L Critically low 3.5-5.1 [facility] Comment on above: Performed By: #### T SH, LIPID, T7, CMP #### [facility] [address] [place] [address] Dr. Cierra Sinha Protein [Mass/Vol] 7.6 g/dL Normal 6.4-8.2 [facility] Comment on above: Performed By: #### T SH, LIPID, T7, CMP #### [facility] [address] [place] [address] Dr. Cierra Sinha Sodium [Moles/Vol] 136 mmol/L Normal 136-145 [facility] Comment on above: Performed By: #### T SH, LIPID, T7, CMP #### [facility] [address] [place] [address] Dr. Cierra Sinha Urea nitrogen [Mass/Vol] 8.0 mg/dL Normal 7.0-18.0 [facility] Comment on above: Performed By: #### T SH, LIPID, T7, CMP #### [facility] [address] [place] [address] Dr. Cierra Sinha Urea nitrogen/Creatinine [Mass ratio] 13.1 mg/mg Normal [facility] Comment on above: Performed By: #### T SH, LIPID, T7, CMP #### [facility] [address] [place] [address] Dr. Cierra Sinha TSHon 04-02-2022 TSH 1.352 uIU/mL Normal 0.358-3.740 [facility] Comment on above: Performed By: #### T SH, LIPID, T7, CMP #### [facility] [address] [place] [address] Dr. Cierra Sinha Vital Signs Date Time Vital Sign Value Performing Clinician Facility 04-01-2023 17:55-0400 Body height 160.02 cm Trupti Snatos Other [facility] Other 04-01-2023 17:55-0400 Body mass index (BMI) [Ratio] 33.09 kg/m2 Trupti Santos Other [facility] Other 04-01-2023 17:55-0400 Body temperature 98.3 [degF] Trupti Santos Other [facility] Other 04-01-2023 17:55-0400 Body weight 84.73 kg Trupti Santos Other [facility] Other 04-01-2023 17:55-0400 Respiratory rate 18 /min Trupti Santos Other [facility] Other 04-01-2023 17:55-0400 SaO2% (BldA) [Mass fraction] 99 % Trupti Santos Other [facility] Other Encounters Encounter Date Encounter Type Care Provider Facility Start: 06-05-2023 End: 06-05-2023 ambulatory SAGE SANAM Not Available Start: 04-23-2023 End: 04-23-2023 ambulatory SAGE SANAM Not Available Start: 04-01-2023 End: 04-01-2023 ambulatory Trupti Tom Other [facility] Other Start: 04-01-2023 Office outpatient vi sit 15 minutes Trupti Santos [facility] Start: 10-11-2022 End: 10-11-[address] JENNY MOYER . Facility:[facility] Start: 07-12-2022 End: 07-12-[address] JENNY MOYER . Facility:[facility] Start: 05-09-2022 End: 05-10-[address] JENNY MOYER . Facility:[facility] Start: 04-24-2022 End: 04-25-[address] JENNY MOYER . Facility:[facility] Start: 04-04-2022 Encounter for genera l adult medical examination without abnormal findings DR JENNY MOYER . [facility] Start: 04-02-2022 End: 04-03-[address] JENNY MOYER . Facility: Start: 04-02-2022 End: 04-03-2022 Encounter for general adult medical examination without abnormal findings DR JENNY MOYER . Facility:[facility] Payers Date Payer Category Payer Unknown [id number] 2.16.84 [id number] 1980 Unknown [id number] 2.16.84 [id number] 1980 Unknown [id number] 2.16.84 [id number] 1980 Unknown [id number] 2.16.84 [id number] 1980 Unknown [id number] 2.16.84 [id number] 1980 Unknown [id number] 1980 Unknown [id number] 1959 Unknown [id number] 1959 Unknown [id number] Social History Date Type Detail Facility Unknown if ever smoked [facility] Other Sex Assigned At Sex Assigned At Bir th [facility] Other Evaluation note 04-01-2023 Note Date & Type Note Facility 04-01-2023 Evaluation note Encounter Date Diagnosis Assessment Notes Mar, Sore throat (ICD-10 - J02.9) Mar, Strep throat (ICD-10 - J02.0) Patient reports history of strep throat at least 3 times since October. 1 time she reports having to be hospitalized due to recurrent episodes. Her strep test in the clinic today was positive. Rx for antibiotics as well as steroid pack given, she was instructed on the use of her medications and instructed to take the full course of antibiotics as prescribed. Due to recurrent episodes of strep throat, I believe this patient would warrant referral for ENT for further evaluation and management. Take ibuprofen/Tyleno l as needed, instructed on salt water gargles and throat lozenges for comfort, push fluids and rest. [facility] Other Summary Purpose Family History No Family History Records FoundNo Family History Records Found [facility] Directives No Advanced Directives Records FoundNo Advanced Directives Records Found Additional Source Comments INFORMATION SOURCE (unrecogn ized section and content) DATE CREATED AUTHOR 10/12/2022 [facility] DATE CREATED AUTHOR AUTHOR'S ORGANIZ ATION 06/07/2023 [facility] EPIC REASON FOR VISIT (unrecogniz ed section and content) SORE THROAT, TONSILS FOR RECORDS PERTAINING TO PATIENTS WHO ARE OR HAVE BEEN ENROLLED IN A CHEMICAL DEPENDENCY/SUBSTANCEABUSE PROGRAM, SOME INFORMATION MAY BE OMITTED. This clinical summary was aggregated from multiple sources. Caution should be exercised in using it in the provision of clinical care. This summary normalizes information from multiple sources, and as a consequence, information in this document may materially change the coding, format and clinical context of patient data. In addition, data may be omitted in some cases. CLINICAL DECISIONS SHOULD BE BASED ON THE PRIMARY CLINICAL RECORDS. [facility] [employer] provides no warranty or guarantee of the accuracy or completeness of information in this document.
== END 2023-06-26 13:31 | disposition home or self-care (01) ==
LOC: PST 13:31
PROVIDERS: PCP Family Medicine; Visit Provider Obstetrics & Gynecology
DX: Z01.818 Encounter for other preprocedural examination (principal); Z30.2 Encounter for sterilization; N92.0 Excessive and frequent menstruation with regular cycle; R10.2 Pelvic and perineal pain; N93.9 Abnormal uterine and vaginal bleeding, unspecified

== ENCOUNTER 2023-07-05 07:06 | Day surgery (SDC) | payer BC, SELFPAY ==
[2023-06-26 13:52] VITALS: BP 123/86; PULSE 81; RESP 12; TEMP 36.2; O2SAT 99; BMI 32.9
[2023-07-05] VITALS (10 sets, daily range): BP systolic 94–123; BP diastolic 60–83; PULSE 67–78; RESP 12–24; TEMP 36.1; O2SAT 90–99; BMI 32.9
--- OUTSIDE RECORDS SUMMARY | 2023-07-05 07:09 | XMS_ITS | CCD ---
Author Name Unknown Address [address] [place] [address] Organization [facility] Care Team Providers Care Lan Engineer Name Role Phone HOY ., DR ALVARADO [...] ALVARADO Primary Care Unavailable HOY ., DR AVLARADO Admitting Unavailable HOY ., DR ALVARADO Attending [...] pyogenes Org specific cx Ql (Throat) Positive [facility] Other Quick Strep [facility] Other Covid-19 PCR ([facility])on SARS-CoV-2 (COVID-19) RNA ZOILA+probe Ql (Unsp spec) Not detected Normal NOT DETECTED [facility] Comment on above: Result Comment: When [...] for this test is supported by the [place] of Health and Human Service's declaration that [...] used). Performed By: #### C VDTBH #### [facility] [address] [place] [address] Dr. Cierra Sinha INFLUENZA A AND B AGon 07-12 INFLUANE SEE BELOW Normal [facility] Comment on above: Result Comment: Nega tive for Flu A protein angiten. Infection due to Flu A cannot be ruled out. Flu A angiten in the sample may be below the detection limit of the test. Performed By: #### C VDTBH #### [facility] [address] [place] [address] Dr. Cierra Sinha INFLUBNEG SEE BELOW Normal [facility] Comment on above: Result Comment: Nega tive for Flu B protein antigen. Infection due to Flu B cannot be ruled out. Flu B antigen in the sample may be below the detection limit of the test. Performed By: #### C VDTBH #### [facility] [address] [place] [address] Dr. Cierra Sinha INFLUENZA A AG Negative Normal NEGATIVE SEE COMMENT [facility] Comment on above: Performed By: #### C VDTBH #### [facility] [address] [place] [address] Dr. Cierra Sinha INFLUENZA B AG Negative Normal NEGATIVE SEE COMMENT [facility] Comment on above: Performed By: #### C VDTBH #### [facility] [address] [place] [address] Dr. Cierra Sinha MG MAMM SCREEN 3D DAYANNA CADon 05-09-2022 MG MAMM SCREEN 3D DAYANNA CAD Patient: NICOLASA COLBY Exam Date: 05/09/2022 : 1980 Gender:F Ordering : DR JENNY MOYER . Admission #: [id number] Family : Order #: [id number] CLICK HERE TO VIEW EXAM RADIOLOGY REPORT [...] liver cancer at age 50. LOCATION: [facility] BREAST COMPOSITION: Scattered areas fibroglandular density. [...] M.D. on 05/09/2022 at 16:13 Normal [facility] GROUP A STREP CULTUREon 04-10 S. pyogenes Ag Ql (Unsp spec) Culture Observations: NEGATIVE FOR GROUP A STREPTOCOCCUS. Normal [facility] Comment on above: Performed By: #### G RASTCX #### [facility] [address] [place] [address] Dr. Cierra Sinha STREPT SCREENon 04-24-2022 STREP SCREEN A Negative Normal NEGATIVE [facility] Comment on above: Performed By: #### S SCRN #### [facility] [address] [place] [address] Dr. Cierra Sinha INSULINon 04-03-2022 Insulin 11.1 uIU/mL Normal 2.6-24.9 [facility] Comment on above: Performed By: #### I NSULIN #### [facility] [address] [place] [address] Dr. Cierra Sinha CBC AUTO DIFFon 04-02-2022 BASO # 0.0 103/ul Normal 0.0-0.1 [facility] Comment on above: Performed By: #### C BC #### [facility] [address] [address] [address] Cierra Sinha Basophils/100 WBC (Bld) 0.4 % Normal 0.2-2.0 [facility] Comment on above: Performed By: #### C BC #### [facility] [address] [address] [address] Cierra Sinha EO # 0.1 103/ul Normal 0.0-0.7 [facility] Comment on above: Performed By: #### C BC #### [facility] [address] [address] [address] Cierra Sinha Eosinophils/100 WBC (Bld) 1.8 % Normal 0.9-7.0 [facility] Comment on above: Performed By: #### C BC #### [facility] [address] [place] [address] Dr. Cierra Sinha Erythrocyte distribution width (RBC) [Ratio] 12.2 % Normal 11.0-15.0 [facility] Comment on above: Performed By: #### C BC #### [facility] [address] [place] [address] Dr. Cierra Sinha Hematocrit (Bld) [Volume fraction] 37.9 % Normal 36.0-48.0 [facility] Comment on above: Performed By: #### C BC #### [facility] [address] [place] [address] Dr. Cierra Sinha Hemoglobin (Bld) [Mass/Vol] 12.7 g/dL Normal 12.0-16.0 [facility] Comment on above: Performed By: #### C BC #### [facility] [address] [place] [address] Dr. Cierra Sinha IG # 0.05 10e3/ul Critically high 0.00-0.03 [facility] Comment on above: Performed By: #### C BC #### [facility] [address] [place] [address] Dr. Cierra Sinha IG % 0.6 % Critically high 0.0-0.5 [facility] Comment on above: Performed By: #### C BC #### [facility] [address] [place] [address] Dr. Cierra Sinha LYMPH # 2.2 103/ul Normal 1.2-3.8 [facility] Comment on above: Performed By: #### C BC #### [facility] [address] [place] [address] Dr. Cierra Sinha Lymphocytes/100 WBC (Bld) 28.2 % Normal 20.5-60.0 [facility] Comment on above: Performed By: #### C BC #### [facility] [address] [place] [address] Dr. Cierra Sinha MANUAL DIFF REQ NO Normal [facility] Comment on above: Performed By: #### C BC #### [facility] [address] [place] [address] Dr. Cierra Sinha MCH (RBC) [Entitic mass] 29.6 pg Normal 26.7-34.0 [facility] Comment on above: Performed By: #### C BC #### [facility] [address] [place] [address] Dr. Cierra Sinha MCHC (RBC) [Mass/Vol] 33.5 g/dL Normal 29.9-35.2 [facility] Comment on above: Performed By: #### C BC #### [facility] [address] [place] [address] Dr. Cierra Sinha MCV (RBC) [Entitic vol] 88.3 fL Normal 81.0-99.0 [facility] Comment on above: Performed By: #### C BC #### [facility] [address] [place] [address] Dr. Cierra Sinha MONO # 0.6 103/ul Normal 0.3-0.8 [facility] Comment on above: Performed By: #### C BC #### [facility] [address] [place] [address] Dr. Cierra Sinha Monocytes/100 WBC (Bld) 7.4 % Normal 1.7-12.0 [facility] Comment on above: Performed By: #### C BC #### [facility] [address] [address] [address] Cierra Sinha NEUT # 4.8 103/ul Normal 1.4-6.5 [facility] Comment on above: Performed By: #### C BC #### [facility] [address] [place] [address] Dr. Cierra Sinha Neutrophils/100 WBC (Bld) 61.6 % Normal 43.0-75.0 [facility] Comment on above: Performed By: #### C BC #### [facility] [address] [place] [address] Dr. Cierra Sinha Platelet mean volume (Bld) [Entitic vol] 9.7 fL Normal 9.5-13.5 [facility] Comment on above: Performed By: #### C BC #### [facility] [address] [place] [address] Dr. Cierra Sinha PLT 280 103/ul Normal 150-450 [facility] Comment on above: Performed By: #### C BC #### [facility] [address] [place] [address] Dr. Cierra Sinha RBC 4.29 106/ul Normal 4.20-5.40 [facility] Comment on above: Performed By: #### C BC #### [facility] [address] [place] [address] Dr. Cierra Sinha WBC 7.9 103/ul Normal 4.0-11.0 [facility] Comment on above: Performed By: #### C BC #### [facility] [address] [place] [address] Dr. Cierra Sinha FREE THYROXINE INDEX T7on FTI 2.55 Normal 1.30-4.50 [facility] Comment on above: Performed By: #### T SH, LIPID, T7, CMP #### [facility] [address] [place] [address] Dr. Cierra Sinha T3U 29.0 % Critically low 30.0-39.0 [facility] Comment on above: Performed By: #### T SH, LIPID, T7, CMP #### [facility] [address] [place] [address] Dr. Cierra Sinha T4 [Mass/Vol] 8.80 ug/dL Normal 4.80-13.90 [facility] Comment on above: Performed By: #### T SH, LIPID, T7, CMP #### [facility] [address] [address] [address] Cierra Sinha GLYCOHEMOGLOBIN A1Con 2021 ADA RECOMMENDATION SEE BELOW Normal [facility] Comment on above: Result Comment: ADA RECOMMENDED LIMIT 4.0 - 6.0 ADA THERAPEUTIC TARGET < 7.0 ACTION SUGGESTED > 7.0 Performed By: #### C VDTBH #### [facility] [address] [address] [address] Cierra Sinha Glucose [Mass/Vol] 100 mg/dL Normal [facility] Comment on above: Performed By: #### C VDTBH #### [facility] [address] [place] [address] Dr. Cierra Sinha HbA1c (Bld) [Mass fraction] 5.1 % Normal 4.5-6.2 [facility] Comment on above: Performed By: #### C VDTBH #### [facility] [address] [address] [address] Cierra Sinha IRONon 04-02-2022 Iron [Mass/Vol] 83.0 ug/dL Normal 50.0-170.0 [facility] Comment on above: Performed By: #### C VDTBH #### [facility] [address] [place] [address] Dr. Cierra Sinha LIPID PROFILEon 04-02-2022 CHOL-HDL RATIO NORM SEE BELOW Normal [facility] Comment on above: Result Comment: 3.3 - 4.4 LOW RISK 4.4 - 7.1 AVERAGE RISK 7.1 - 11.0 MODERATE RISK >11.0 HIGH RISK Performed By: #### T SH, LIPID, T7, CMP #### [facility] [address] [address] [address] Cierra Sinha Cholesterol [Mass/Vol] 161 mg/dL Normal <=200 [facility] Comment on above: Performed By: #### T SH, LIPID, T7, CMP #### [facility] [address] [address] [address] Cierra Sinha Cholesterol in HDL [Mass/Vol] 52 mg/dL Normal 40-60 [facility] Comment on above: Performed By: #### T SH, LIPID, T7, CMP #### [facility] [address] [address] [address] Cierra Sinha Cholesterol in LDL [Mass/Vol] 97.6 mg/dL Normal [facility] Comment on above: Performed By: #### T SH, LIPID, T7, CMP #### [facility] [address] [address] [address] Cierra Sinha Cholesterol.total/Ch olesterol in HDL [Mass ratio] 3.1 {ratio} Normal [facility] Comment on above: Performed By: #### T SH, LIPID, T7, CMP #### [facility] [address] [address] [address] Cierra Sinha HDL NORMAL > or = 60 mg/dl - LOW CARDIOVASCULAR RISK <40 mg/dl - HIGH CARDIOVASCULAR RISK Normal [facility] Comment on above: Performed By: #### T SH, LIPID, T7, CMP #### [facility] [address] [address] [address] Cierra Sinha LDL CALC NORMAL SEE BELOW Normal [facility] Comment on above: Result Comment: <100 mg/dl OPTIMAL 100 - 129 mg/dl NEAR OR ABOVE OPTIMAL 130 - 159 mg/dl BORDERLINE HIGH 160 - 189 mg/dl HIGH >190 mg/dl VERY HIGH Performed By: #### T SH, LIPID, T7, CMP #### [facility] [address] [address] [address] Cierra Sinha Triglyceride [Mass/Vol] 57 mg/dL Normal <=150 [facility] Comment on above: Performed By: #### T SH, LIPID, T7, CMP #### [facility] [address] [address] [address] Cierra Sinha VLDL CALC 11.4 mg/dL Normal [facility] Comment on above: Performed By: #### T SH, LIPID, T7, CMP #### [facility] [address] [address] [address] Cierra Sinha PROF 14(COMP METB)on 022 Albumin [Mass/Vol] 3.6 g/dL Normal 3.4-5.0 [facility] Comment on above: Performed By: #### T SH, LIPID, T7, CMP #### [facility] [address] [address] [address] Cierra Sinha Albumin/Globulin [Mass ratio] 0.9 {ratio} Normal [facility] Comment on above: Performed By: #### T SH, LIPID, T7, CMP #### [facility] [address] [address] [address] Cierra Sinha ALP [Catalytic activity/Vol] 88 U/L Normal 46-116 [facility] Comment on above: Performed By: #### T SH, LIPID, T7, CMP #### [facility] [address] [place] [address] Dr. Cierra Sinha ALT [Catalytic activity/Vol] 26 U/L Normal 14-59 [facility] Comment on above: Performed By: #### T SH, LIPID, T7, CMP #### [facility] [address] [address] [address] Cierra Sinha Anion gap [Moles/Vol] 7.4 mmol/L Normal [facility] Comment on above: Performed By: #### T SH, LIPID, T7, CMP #### [facility] [address] [address] [address] Cierra Sinha AST [Catalytic activity/Vol] 19 U/L Normal 15-37 [facility] Comment on above: Performed By: #### T SH, LIPID, T7, CMP #### [facility] [address] [address] [address] Cierra Sinha Bilirubin [Mass/Vol] 0.5 mg/dL Normal 0.2-1.0 [facility] Comment on above: Performed By: #### T SH, LIPID, T7, CMP #### [facility] [address] [address] [address] Cierra Sinha Calcium [Mass/Vol] 8.6 mg/dL Normal 8.5-10.1 [facility] Comment on above: Performed By: #### T SH, LIPID, T7, CMP #### [facility] [address] [address] [address] Cierra Sinha Chloride [Moles/Vol] 102 mmol/L Normal 98-107 [facility] Comment on above: Performed By: #### T SH, LIPID, T7, CMP #### [facility] [address] [address] [address] Cierra Sinha CO2 [Moles/Vol] 30.0 mmol/L Normal 21.0-32.0 [facility] Comment on above: Performed By: #### T SH, LIPID, T7, CMP #### [facility] [address] [place] [address] Dr. Cierra Sinha Creatinine [Mass/Vol] 0.61 mg/dL Normal 0.55-1.02 [facility] Comment on above: Performed By: #### T SH, LIPID, T7, CMP #### [facility] [address] [place] [address] Dr. Cierra Sinha EGFR-AF [place]ORE[place] >60 Normal >=60 [facility] Comment on above: Performed By: #### T SH, LIPID, T7, CMP #### [facility] [address] [place] [address] Dr. Cierra Sinha EGFR-NON AF [place] >60 Normal >=60 [facility] Comment on above: Performed By: #### T SH, LIPID, T7, CMP #### [facility] [address] [place] [address] Dr. Cierra Sinha Globulin (S) [Mass/Vol] 4.0 g/dL Normal [facility] Comment on above: Performed By: #### T SH, LIPID, T7, CMP #### [facility] [address] [place] [address] Dr. Cierra Sinha Glucose [Mass/Vol] 90 mg/dL Normal 74-106 [facility] Comment on above: Performed By: #### T SH, LIPID, T7, CMP #### [facility] [address] [address] [address] Cierra Sinha Potassium [Moles/Vol] 3.4 mmol/L Critically low 3.5-5.1 [facility] Comment on above: Performed By: #### T SH, LIPID, T7, CMP #### [facility] [address] [place] [address] Dr. Cierra Sinha Protein [Mass/Vol] 7.6 g/dL Normal 6.4-8.2 [facility] Comment on above: Performed By: #### T SH, LIPID, T7, CMP #### [facility] [address] [place] [address] Dr. Cierra Sinha Sodium [Moles/Vol] 136 mmol/L Normal 136-145 [facility] Comment on above: Performed By: #### T SH, LIPID, T7, CMP #### [facility] [address] [place] [address] Dr. Cierra Sinha Urea nitrogen [Mass/Vol] 8.0 mg/dL Normal 7.0-18.0 [facility] Comment on above: Performed By: #### T SH, LIPID, T7, CMP #### [facility] [address] [place] [address] Dr. Cierra Sinha Urea nitrogen/Creatinine [Mass ratio] 13.1 mg/mg Normal [facility] Comment on above: Performed By: #### T SH, LIPID, T7, CMP #### [facility] [address] [place] [address] Dr. Cierra Sinha TSHon 04-02-2022 TSH 1.352 uIU/mL Normal 0.358-3.740 [facility] Comment on above: Performed By: #### T SH, LIPID, T7, CMP #### [facility] [address] [place] [address] Dr. Cierra Sinha Vital Signs Date Time Vital Sign Value Performing Clinician Facility 04-01-2023 17:55-0400 Body height 160.02 cm Trupti Santos Other [facility] Other 04-01-2023 17:55-0400 Body mass index (BMI) [Ratio] 33.09 kg/m2 Trupti Santos Other [facility] Other 04-01-2023 17:55-0400 Body temperature 98.3 [degF] Trupti Santos Other [facility] Other 04-01-2023 17:55-0400 Body weight 84.73 kg Trupti Santos Other [facility] Other 04-01-2023 17:55-0400 Respiratory rate 18 /min Trupti Santos Other [facility] Other 04-01-2023 17:55-0400 SaO2% (BldA) [Mass fraction] 99 % Trupti Santos Other [facility] Other Encounters Encounter Date Encounter Type Care Provider Facility Start: 06-05-2023 End: 06-05-2023 ambulatory SAGE SANAM Not Available Start: 04-23-2023 End: 04-23-2023 ambulatory SAGE SANAM Not Available Start: 04-01-2023 End: 04-01-2023 ambulatory Trupti Tom Other [facility] Other Start: 04-01-2023 Office outpatient vi sit [...] abnormal findings DR JENNY MOYER . [facility] Start: 04-02-2022 End: 04-03-[address] JENNY MOYER . Facility: Start: 04-02-2022 End: 04-03-2022 Encounter for general adult medical examination without abnormal findings DR JENNY MOYER . Facility:[facility] Payers Date Payer Category Payer Unknown [id number] 2.16.84 [id number] 1980 Unknown [id number] 2.16.84 [id number] 1980 Unknown [id number] 2.16.84 [id number] 1980 Unknown [id number] 2.16.84 [id number] 1980 Unknown [id number] 2.16.84 [id number] 1980 Unknown [id number] 1980 Unknown [id number] 1959 Unknown [id number] 1959 Unknown [id number] Social History Date Type Detail Facility Unknown if ever smoked [facility] Other Sex Assigned At Sex Assigned At Bir th [facility] Other Evaluation note 04-01-2023 Note Date & [...] lozenges for comfort, push fluids and rest. [facility] Other Summary Purpose Family History No Family History Records FoundNo Family History Records Found Advance Directives No Advanced Directives Records FoundNo Advanced Directives Records Found Additional Source Comments INFORMATION SOURCE (unrecogn ized section and content) DATE CREATED AUTHOR 10/12/2022 [facility] DATE CREATED AUTHOR AUTHOR'S ORGANIZ ATION 06/07/2023 [facility] EPIC REASON FOR VISIT (unrecogniz ed [...] BE BASED ON THE PRIMARY CLINICAL RECORDS. [facility] [employer] provides no warranty or guarantee of the accuracy or completeness of information in this document.
[2023-07-05 07:15] LABS: Basophils Percent Auto 0.4 % (0.2-2.0); Eosinophils Absolute Auto 0.2 10^3/uL (0.0-0.7); Eosinophils Percent Auto 1.6 % (0.9-7.0); Hematocrit 38.8 % (36.0-48.0); Immature Granulocytes Abs Auto 0.06 10^3/uL (0.00-0.03); Immature Granulocytes Pct Auto 0.6 % (0.0-0.5); Lymphocytes Absolute Auto 2.8 10^3/uL (1.2-3.8); Lymphocytes Percent Auto 27.8 % (20.5-60.0); Mean Corpuscular HGB Conc 33.5 g/dL (29.9-35.2); Mean Corpuscular Hemoglobin 29.6 pg (26.7-34.0); Mean Corpuscular Volume 88.4 fL (81.0-99.0); Mean Platelet Volume 9.6 fL (9.5-13.5); Monocytes Absolute Auto 0.7 10^3/uL (0.3-0.8); Neutrophils Absolute Auto 6.4 10^3/uL (1.4-6.5); Neutrophils Percent Auto 62.6 % (43.0-75.0); Platelet Count 266 10^3/uL (150-450); Red Blood Count 4.39 10^6/uL (4.20-5.40); Red Cell Distribution Width 12.5 % (11.0-15.0); White Blood Count 10.2 10^3/uL (4.0-11.0)
[2023-07-05] MEDS: LACTATED RINGER'S SOLUTION 1,000 ML 50 ML IV (07:34)
[2023-07-05 07:37] LABS: HCG Quantitative <1 mIU/mL
--- NOTE | 2023-07-05 10:35 | PM.ONB ---
Brief Operative Note Date of procedure: 07/05/23 Pre-op diagnosis: menorrhagia, ovarian cysts, desires sterilization Post-op diagnosis: same as pre-op Procedure: NAME OF PROCEDURE: robotic assisted Laparoscopic bilateral salpingectomy, with Fauzia endometrial ablation with hysteroscopy rt ovarian cystectomy, lt ovarian cystotomy PROCEDURE: The patient was taken back to the OR where she was prepped and draped in the normal sterile fashion after being placed in the dorsal lithotomy position, after being placed under general anesthesia without difficulty. a weighted speculum was then placed into the vagina. Pap and endometrial bx were performed without difficultyThe anterior lip was grasped with a single tooth tenaculum. The patient was then sounded to approximatley 9cm. The patient was gently sounded using Hegar dilators and the hysteroscope was passed through the cervix into the uterus where both ostia were seen. No gross evidence of polyps, fibroids or malignancy. The cervical length was noted to be 4cm. The Fauzia ablation apparatus was set to approximately 5cm in length. This was placed in through the cervix and into the uterus. After the seal was tested, at that time the total ablation of 120 seconds was performed with the Fauzia without difficulty. All instruments were removed from the vagina. A wet sponge stick was placed into the patient's vagina. Attention was then turned to the patient's abdomen, where a scalpel was used to make a small infraumbilical incision. The S retractors were then used to dissect the underlying layers until the fascia could be seen. The fascia was then grasped with Anne-Marie clamps and tented up. A knife was then used to make a small incision to the fascia. The muscle was identified, at that time two sutures of #0 Vicryl on a GI needlewas then used and placed through the fascia. The peritoneum was then identified and entered bluntly. The 10-4 Ewa was then placed into the patient's abdomen. This was confirmed with direct visualization of the bowel, using the laparoscope. The patient's abdomen was then insufflated using approximately 4 liters of CO2 gas. Survey of the patient's abdomen demonstrated normal appearing ovaries, uterus and tubes. A second and third lateral robotic ports, which was 8mm in size, was then placed laterally after incision was made in the skin under direct visualization. the robotic arms were engaged. The patient's tube on the patient's right side was identified. The tube was then tented up using a grasper. The ligasure was used to transect and coagulate the mesosalpingx from the fimbriated end to the insertion at the uterus, the tube was amputated and removed in its entirety.? Excellent hemostasis was noted. ?This was performed on the contralateral sideas well. The lateral ports were then moved under direct visualization with excellent hemostasis. The abdomen was deinsufflated. All instruments were removed from the patient's abdomen. The fascia was closed using the #0 Vicryl on GI needle. The skin was closed using 4-0 Vicryl subcuticularly. All instruments were removed from the patient's vagina as well. The patient was taken out of the dorsal lithotomy position and placed in the supine position and taken to recovery in stable condition. Sponge, lap and needle counts were correct x2. ???please note vessel sealer was used to perform lt ovarian cystotomy and rt ovarian cystectomy with excellent hemostasis Anesthesia: JR Surgeon: Vince Escudero Chemical Processor: Kristin Betancur Estimated blood loss (mL): 5 Pathology: other (bilateral tubes, rt ovarian cyst wall) Condition: stable Disposition: PACU Urinary Catheter Management Urinary Catheter Management Urethral: Cath placed during this visit: no
[2023-07-05] MEDS: LACTATED RINGER'S SOLUTION 1,000 ML 150 ML IV (11:24)
== END 2023-07-05 12:47 | disposition home or self-care (01) ==
PROVIDERS: PCP Family Medicine; Visit Provider Obstetrics & Gynecology
PROC: (CPT 840; principal; 2023-07-05 08:30)
DX: Z30.2 Encounter for sterilization (principal); N92.0 Excessive and frequent menstruation with regular cycle; R10.2 Pelvic and perineal pain; N93.9 Abnormal uterine and vaginal bleeding, unspecified; N83.201 Unspecified ovarian cyst, right side; N83.202 Unspecified ovarian cyst, left side
CPT/HCPCS: 49322; 58563; 58661; 58662; 36415; 84702; 85025; 88302; 88305; J1100; J1170; J1885; J2250; J2405; J2704; J3010

== ENCOUNTER 2024-04-01 15:42 | Outpatient (OUT) | payer BC, SELFPAY ==
[2024-04-01 16:07] LABS: Basophils Absolute Auto 0.1 10^3/uL (0.0-0.1); Basophils Percent Auto 0.5 % (0.2-2.0); Eosinophils Absolute Auto 0.4 10^3/uL (0.0-0.7); Eosinophils Percent Auto 3.3 % (0.9-7.0); Hematocrit 38.3 % (36.0-48.0); Hemoglobin 13.3 g/dL (12.0-16.0); Immature Granulocytes Abs Auto 0.05 10^3/uL (0.00-0.03); Immature Granulocytes Pct Auto 0.5 % (0.0-0.5); Lymphocytes Absolute Auto 1.9 10^3/uL (1.2-3.8); Lymphocytes Percent Auto 17.5 % (20.5-60.0); Mean Corpuscular HGB Conc 34.7 g/dL (29.9-35.2); Mean Corpuscular Hemoglobin 30.6 pg (26.7-34.0); Mean Platelet Volume 9.7 fL (9.5-13.5); Monocytes Absolute Auto 0.6 10^3/uL (0.3-0.8); Monocytes Percent Auto 5.8 % (1.7-12.0); Neutrophils Absolute Auto 7.7 10^3/uL (1.4-6.5); Neutrophils Percent Auto 72.4 % (43.0-75.0); Platelet Count 290 10^3/uL (150-450); Red Blood Count 4.35 10^6/uL (4.20-5.40); Red Cell Distribution Width 11.5 % (11.0-15.0); White Blood Count 10.7 10^3/uL (4.0-11.0)
--- OUTSIDE RECORDS SUMMARY | 2024-04-01 16:09 | XMS_ITS | CCD ---
Author Organization [facility] Care Team Providers Care Engineering Supplies Sales Name Role Phone JOÃO ., DR ALVARADO Admitting Unavailable HOY ., [...] DR ALVARADO Consulting Unavailable Trupti Santos Unavailable Sage Escudero Attending Provider [phone] SAGE ESCUDERO Attending Unavailable SAGE ESCUDERO Attending Unavailable CORTNEY DOMINGUEZ Attending Unavailable Sage Escudero Attending Unavailable Sage Escudero Admitting [...] Test Name Value Interpretation Reference Range Facility [facility] 07-05-2023 L Specimen: [id number] Received: 07/08/23 Status: CANDELARIO Estrada Num: [id number] Spec Type: Surgical Subm Dr: Sage Escudero Tissues: A Fallopian Tube - Sterilization (BILATERAL FT) B Soft Tissue/Surgical Margin-Other than Tumor,Mass,Lip or Shannon (RT OVARIAN CYS Procedures: HE/5, Gross/Micro L4, Gross/Micro L2 Age/ Patient Sex Location Account Attending Physician Nicolasa Colby 43/F LABELL [id number] Sage Escudero SPEC NUM: [id number] RECD: 07/08/23 STATUS: CANDELARIO ESTRADA NUM: [id number] NATHANIEL: 07/05/[address]: Sage Escudero ENTERED: 07/08/[address]: Lencho,Lab SPEC TYPE: Surgical DEPT: KAREN [...] fimbria are purple-red, lush, and otherwise unremarkable. Bronze Plater sections are submitted in 4 cassettes as follows: A1-A2 - [place] segment with fimbria entirely submitted A3-A4 - [...] B1. Specimen: [id number] Received: 07/08/23 Status: CANDELARIO Estrada Num: [id number] Spec Type: Surgical Subm Dr: Sage Escudero Tissues: A Fallopian Tube - Sterilization (BILATERAL FT) B Soft Tissue/Surgical Margin-Other than Tumor,Mass,Lip or Shannon (RT OVARIAN CYS Procedures: HE/5, Gross/Micro L4, Gross/Micro L2 Patient: Nicolasa Colby [id number] (Continued) Specimen: [id number] Received: 07/08/23 (Continued) Signed (signatur e on file) Lazara Grant MD 07/10/232240 Specimen: [id number] Received: 07/08/23 Status: CANDELARIO Estrada Num: [id number] Spec Type: Surgical Subm Dr: Sage Escudero Tissues: A Fallopian Tube - Sterilization (BILATERAL FT) B Soft Tissue/Surgical Margin-Other than Tumor,Mass,Lip or Shannon (RT OVARIAN CYS Procedures: HE/5, Gross/Micro L4, Gross/Micro L2 Patient: Nicolasa Colby [id number] (Continued) Specimen: [id number] Received: 07/08/23 (Continued) CPT Codes 61891, 26735 Specimen: [id number] Received: 07/08/23 Status: CANDELARIO Estrada Num: [id number] Spec Type: Surgical Subm Dr: Sage Escudero Tissues: A Fallopian Tube - Sterilization (BILATERAL FT) B Soft Tissue/Surgical Margin-Other than Tumor,Mass,Lip or Shannon (RT OVARIAN CYS Procedures: HE/5, Gross/Micro L4, Gross/Micro L2 Patient: Nicolasa Colby [id number] (Continued) Signed (signatur e on file) Lazara Grant MD 07/10/23 224 [facility] Quick Strepon 04-01-2023 S. pyogenes Org specific cx Ql (Throat) Positive [facility] Other Quick Strep Aster [facility] Alytics Other Covid-19 PCR ([facility])on SARS-CoV-2 (COVID-19) RNA ZOILA+probe Ql (Unsp spec) Not detected Normal NOT DETECTED [facility] Comment on above: Result Comment: When diagnostic [...] for this test is supported by the [place] of Health and Human Service's declaration that [...] longer be used). Performed By: #### [facility] #### [facility] [address] [place] [address] Dr. Cierra Sinha INFLUENZA A AND B AGon 07-12 INFLUANEGH SEE BELOW Normal [facility] Comment on above: Result Comment: Nega tive for Flu A protein angiten. Infection due to Flu A cannot be ruled out. Flu A angiten in the sample may be below the detection limit of the test. Performed By: #### C VDTBH #### [facility] [address] [place] [address] Dr. [facility] SEE BELOW Normal [facility] Comment on above: Result Comment: Nega tive for Flu B protein antigen. Infection due to Flu B cannot be ruled out. Flu B antigen in the sample may be below the detection limit of the test. Performed By: #### C VDTBH #### [facility] [address] [place] [address] Dr. Cierra Sinha INFLUENZA A AG Negative Normal NEGATIVE SEE COMMENT [facility] Comment on above: Performed By: #### C VDTBH #### [facility] [address] [place] [address] Dr. Cierra Sinha INFLUENZA B AG Negative Normal NEGATIVE SEE COMMENT [facility] Comment on above: Performed By: #### C VDTBH #### [facility] [address] [place] [address] Dr. Cierra Sinha MG MAMM SCREEN 3D DAYANNA CADon 05-09-2022 MG MAMM SCREEN 3D DAYANNA CAD Patient: NICOLASA COLBY Exam Date: 05/09/2022 : 1980 Gender:F Ordering : DR JENNY MOYER . Admission #: [id number] Family : Order #: [id number] CLICK HERE TO VIEW EXAM RADIOLOGY REPORT [...] liver cancer at age 50. LOCATION: [facility] BREAST COMPOSITION: Scattered areas fibroglandular density. FINDINGS: [...] M.D. on 05/09/2022 at 16:13 Normal [facility] GROUP A STREP CULTUREon 04-10 S. pyogenes Ag Ql (Unsp spec) Culture Observations: NEGATIVE FOR GROUP A STREPTOCOCCUS. Normal [facility] Comment on above: Performed By: #### G RASTCX #### [facility] [address] [place] [address] Dr. Cierra Sinha STREPT SCREENon 04-24-2022 STREP SCREEN A Negative Normal NEGATIVE [facility] Comment on above: Performed By: #### S SCRN #### [facility] [address] [place] [address] Dr. Cierra Sinha INSULINon 04-03-2022 Insulin 11.1 uIU/mL Normal 2.6-24.9 [facility] Comment on above: Performed By: #### I NSULIN #### [facility] [address] [place] [address] Dr. Cierra Sinha CBC AUTO DIFFon 04-02-2022 BASO # 0.0 103/ul Normal 0.0-0.1 [facility] Comment on above: Performed By: #### C BC #### [facility] [address] [place] [address] Dr. Cierra Sinha Basophils/100 WBC (Bld) 0.4 % Normal 0.2-2.0 [facility] Comment on above: Performed By: #### C BC #### [facility] [address] [place] [address] Dr. Cierra Sinha EO # 0.1 103/ul Normal 0.0-0.7 [facility] Comment on above: Performed By: #### C BC #### [facility] [address] [place], [place] [id number] Dr. Cierra Sinha Eosinophils/100 WBC (Bld) 1.8 % Normal 0.9-7.0 [facility] Comment on above: Performed By: #### C BC #### [facility] [address] [place] [address] Dr. Cierra Sinha Erythrocyte distribution width (RBC) [Ratio] 12.2 % Normal 11.0-15.0 [facility] Comment on above: Performed By: #### C BC #### [facility] [address] [place] [address] Dr. Cierra Sinha Hematocrit (Bld) [Volume fraction] 37.9 % Normal 36.0-48.0 [facility] Comment on above: Performed By: #### C BC #### [facility] [address] [place] [address] Dr. Cierra Sinha Hemoglobin (Bld) [Mass/Vol] 12.7 g/dL Normal 12.0-16.0 [facility] Comment on above: Performed By: #### C BC #### [facility] [address] [place] [address] Dr. Cierra Sinha IG # 0.05 10e3/ul Critically high 0.00-0.03 [facility] Comment on above: Performed By: #### C BC #### [facility] [address] [place] [address] Dr. Cierra Sinha IG % 0.6 % Critically high 0.0-0.5 [facility] Comment on above: Performed By: #### C BC #### [facility] [address] [place] [address] Dr. Cierra Sinha LYMPH # 2.2 103/ul Normal 1.2-3.8 [facility] Comment on above: Performed By: #### C BC #### [facility] [address] [place] [address] Dr. Cierra Sinha Lymphocytes/100 WBC (Bld) 28.2 % Normal 20.5-60.0 [facility] Comment on above: Performed By: #### C BC #### [facility] [address] [place] [address] Dr. Cierra Sinha MANUAL DIFF REQ NO Normal [facility] Comment on above: Performed By: #### C BC #### [facility] [address] [place] [address] Dr. Cierra Sinha MCH (RBC) [Entitic mass] 29.6 pg Normal 26.7-34.0 [facility] Comment on above: Performed By: #### C BC #### [facility] [address] [place] [address] Dr. Cierra Sinha MCHC (RBC) [Mass/Vol] 33.5 g/dL Normal 29.9-35.2 [facility] Comment on above: Performed By: #### C BC #### [facility] [address] [place] [address] Dr. Cierra Sinha MCV (RBC) [Entitic vol] 88.3 fL Normal 81.0-99.0 [facility] Comment on above: Performed By: #### C BC #### [facility] [address] [place] [address] Dr. Cierra Sinha MONO # 0.6 103/ul Normal 0.3-0.8 [facility] Comment on above: Performed By: #### C BC #### [facility] [address] [place] [address] Dr. Cierra Sinha Monocytes/100 WBC (Bld) 7.4 % Normal 1.7-12.0 [facility] Comment on above: Performed By: #### C BC #### [facility] [address] [place] [address] Dr. Cierra Sinha NEUT # 4.8 103/ul Normal 1.4-6.5 [facility] Comment on above: Performed By: #### C BC #### [facility] [address] [place] [address] Dr. Cierra Sinha Neutrophils/100 WBC (Bld) 61.6 % Normal 43.0-75.0 [facility] Comment on above: Performed By: #### C BC #### [facility] [address] [place] [address] Dr. Cierra Sinha Platelet mean volume (Bld) [Entitic vol] 9.7 fL Normal 9.5-13.5 [facility] Comment on above: Performed By: #### C BC #### [facility] [address] [place] [address] Dr. Cierra Sinha PLT 280 103/ul Normal 150-450 [facility] Comment on above: Performed By: #### C BC #### [facility] [address] [place] [address] Dr. Cierra Sinha RBC 4.29 106/ul Normal 4.20-5.40 [facility] Comment on above: Performed By: #### C BC #### [facility] [address] [place] [address] Dr. Cierra Sinha WBC 7.9 103/ul Normal 4.0-11.0 [facility] Comment on above: Performed By: #### C BC #### [facility] [address] [place] [address] Dr. Cierra Sinha FREE THYROXINE INDEX T7on FTI 2.55 Normal 1.30-4.50 [facility] Comment on above: Performed By: #### T SH, LIPID, T7, CMP #### [facility] [address] [place] [address] Dr. Cierra Sinha T3U 29.0 % Critically low 30.0-39.0 [facility] Comment on above: Performed By: #### T SH, LIPID, T7, CMP #### [facility] [address] [place] [address] Dr. Cierra Sinha T4 [Mass/Vol] 8.80 ug/dL Normal 4.80-13.90 [facility] Comment on above: Performed By: #### T SH, LIPID, T7, CMP #### [facility] [address] [place] [address] Dr. Cierra Sinha GLYCOHEMOGLOBIN A1Con 2021 ADA RECOMMENDATION SEE BELOW Normal [facility] Comment on above: Result Comment: ADA RECOMMENDED LIMIT 4.0 - 6.0 ADA THERAPEUTIC TARGET < 7.0 ACTION SUGGESTED > 7.0 Performed By: #### C VDTBH #### [facility] [address] [address] [address] Cierra Sinha Glucose [Mass/Vol] 100 mg/dL Normal [facility] Comment on above: Performed By: #### C VDTBH #### [facility] [address] [address] [address] Cierra Sinha HbA1c (Bld) [Mass fraction] 5.1 % Normal 4.5-6.2 [facility] Comment on above: Performed By: #### C VDTBH #### [facility] [address] [address] [address] Cierra Sinha IRONon 04-02-2022 Iron [Mass/Vol] 83.0 ug/dL Normal 50.0-170.0 [facility] Comment on above: Performed By: #### C VDTBH #### [facility] [address] [place] [address] Dr. Cierra Sinha LIPID PROFILEon 04-02-2022 CHOL-HDL RATIO NORM SEE BELOW Normal [facility] Comment on above: Result Comment: 3.3 - 4.4 LOW RISK 4.4 - 7.1 AVERAGE RISK 7.1 - 11.0 MODERATE RISK >11.0 HIGH RISK Performed By: #### T SH, LIPID, T7, CMP #### [facility] [address] [place] [address] Dr. Cierra Sinha Cholesterol [Mass/Vol] 161 mg/dL Normal <=200 [facility] Comment on above: Performed By: #### T SH, LIPID, T7, CMP #### [facility] [address] [address] [address] Cierra Sinha Cholesterol in HDL [Mass/Vol] 52 mg/dL Normal 40-60 [facility] Comment on above: Performed By: #### T SH, LIPID, T7, CMP #### [facility] [address] [address] [address] Cierra Sinha Cholesterol in LDL [Mass/Vol] 97.6 mg/dL Normal [facility] Comment on above: Performed By: #### T SH, LIPID, T7, CMP #### [facility] [address] [address] [address] Cierra Sinha Cholesterol.total/Ch olesterol in HDL [Mass ratio] 3.1 {ratio} Normal [facility] Comment on above: Performed By: #### T SH, LIPID, T7, CMP #### [facility] [address] [address] [address] Cierra Sinha HDL NORMAL > or = 60 mg/dl - LOW CARDIOVASCULAR RISK <40 mg/dl - HIGH CARDIOVASCULAR RISK Normal [facility] Comment on above: Performed By: #### T SH, LIPID, T7, CMP #### [facility] [address] [address] [address] Cierra Sinha LDL CALC NORMAL SEE BELOW Normal [facility] Comment on above: Result Comment: <100 mg/dl OPTIMAL 100 - 129 mg/dl NEAR OR ABOVE OPTIMAL 130 - 159 mg/dl BORDERLINE HIGH 160 - 189 mg/dl HIGH >190 mg/dl VERY HIGH Performed By: #### T SH, LIPID, T7, CMP #### [facility] [address] [address] [address] Cierra Sinha Triglyceride [Mass/Vol] 57 mg/dL Normal <=150 [facility] Comment on above: Performed By: #### T SH, LIPID, T7, CMP #### [facility] [address] [place] [address] Dr. Cierra Sinha VLDL CALC 11.4 mg/dL Normal [facility] Comment on above: Performed By: #### T SH, LIPID, T7, CMP #### [facility] [address] [address] [address] Cierra Sinha PROF 14(COMP METB)on 022 Albumin [Mass/Vol] 3.6 g/dL Normal 3.4-5.0 [facility] Comment on above: Performed By: #### T SH, LIPID, T7, CMP #### [facility] [address] [address] [address] Cierra Sinha Albumin/Globulin [Mass ratio] 0.9 {ratio} Normal [facility] Comment on above: Performed By: #### T SH, LIPID, T7, CMP #### [facility] [address] [address] [address] Cierra Sinha ALP [Catalytic activity/Vol] 88 U/L Normal 46-116 [facility] Comment on above: Performed By: #### T SH, LIPID, T7, CMP #### [facility] [address] [address] [address] Cierra Sinha ALT [Catalytic activity/Vol] 26 U/L Normal 14-59 [facility] Comment on above: Performed By: #### T SH, LIPID, T7, CMP #### [facility] [address] [address] [address] Cierra Sinha Anion gap [Moles/Vol] 7.4 mmol/L Normal [facility] Comment on above: Performed By: #### T SH, LIPID, T7, CMP #### [facility] [address] [place] [address] Dr. Cierra Sinha AST [Catalytic activity/Vol] 19 U/L Normal 15-37 [facility] Comment on above: Performed By: #### T SH, LIPID, T7, CMP #### [facility] [address] [address] [address] Cierra Sinha Bilirubin [Mass/Vol] 0.5 mg/dL Normal 0.2-1.0 [facility] Comment on above: Performed By: #### T SH, LIPID, T7, CMP #### [facility] [address] [address] [address] Cierra Sinha Calcium [Mass/Vol] 8.6 mg/dL Normal 8.5-10.1 [facility] Comment on above: Performed By: #### T SH, LIPID, T7, CMP #### [facility] [address] [address] [address] Cierra Sinha Chloride [Moles/Vol] 102 mmol/L Normal 98-107 [facility] Comment on above: Performed By: #### T SH, LIPID, T7, CMP #### [facility] [address] [address] [address] Cierra Sinha CO2 [Moles/Vol] 30.0 mmol/L Normal 21.0-32.0 [facility] Comment on above: Performed By: #### T SH, LIPID, T7, CMP #### [facility] [address] [place] [address] Dr. Cierra Sinha Creatinine [Mass/Vol] 0.61 mg/dL Normal 0.55-1.02 [facility] Comment on above: Performed By: #### T SH, LIPID, T7, CMP #### [facility] [address] [address] [address] Cierra Sinha EGFR-AF KOSOVAN >60 Normal >=60 [facility] Comment on above: Performed By: #### T SH, LIPID, T7, CMP #### [facility] [address] [place] [address] Dr. Cierra Sinha EGFR-NON AF KOSOVAN >60 Normal >=60 [facility] Comment on above: Performed By: #### T SH, LIPID, T7, CMP #### [facility] [address] [place] [address] Dr. Cierra Sinha Globulin (S) [Mass/Vol] 4.0 g/dL Normal [facility] Comment on above: Performed By: #### T SH, LIPID, T7, CMP #### [facility] [address] [place] [address] Dr. Cierra Sinha Glucose [Mass/Vol] 90 mg/dL Normal 74-106 [facility] Comment on above: Performed By: #### T SH, LIPID, T7, CMP #### [facility] [address] [address] [address] Cierra Sinha Potassium [Moles/Vol] 3.4 mmol/L Critically low 3.5-5.1 [facility] Comment on above: Performed By: #### T SH, LIPID, T7, CMP #### [facility] [address] [place] [address] Dr. Cierra Sinha Protein [Mass/Vol] 7.6 g/dL Normal 6.4-8.2 [facility] Comment on above: Performed By: #### T SH, LIPID, T7, CMP #### [facility] [address] [address] [address] Cierra Sinha Sodium [Moles/Vol] 136 mmol/L Normal 136-145 [facility] Comment on above: Performed By: #### T SH, LIPID, T7, CMP #### [facility] [address] [address] [address] Cierra Sinha Urea nitrogen [Mass/Vol] 8.0 mg/dL Normal 7.0-18.0 [facility] Comment on above: Performed By: #### T SH, LIPID, T7, CMP #### [facility] [address] [place], [place] [address] Dr. Cierra Sinha Urea nitrogen/Creatinine [Mass ratio] 13.1 mg/mg Normal [facility] Comment on above: Performed By: #### T SH, LIPID, T7, CMP #### [facility] [address] [address] [address] Cierra Sinha TSHon 04-02-2022 TSH 1.352 uIU/mL Normal 0.358-3.740 [facility] Comment on above: Performed By: #### T SH, LIPID, T7, CMP #### [facility] [address] [address] [address] Cierra Sinha Vital Signs Date Time Vital Sign Value Performing Clinician Facility 04-01-2023 17:55-0400 Body height 160.02 cm Trupti Santos Other [facility] Other 04-01-2023 17:55-0400 Body mass index (BMI) [Ratio] 33.09 kg/m2 Trupti Santos Other [facility] Other 04-01-2023 17:55-0400 Body temperature 98.3 [degF] Trupti Santos Other [facility] Other 04-01-2023 17:55-0400 Body weight 84.73 kg Trupti Santos Other [facility] Other 04-01-2023 17:55-0400 Respiratory rate 18 /min Trupti Santos Other [facility] Other 04-01-2023 17:55-0400 SaO2% (BldA) [Mass fraction] 99 % Trupti Santos Other [facility] Other Encounters Encounter Date Encounter Type Care Provider Facility Start: 07-16-2023 End: 07-16-2023 ambulatory CORTNEY DOMINGUEZ Not Available Start: 07-05-2023 End: 07-05-2023 ambulatory Sage Kena Facility:[facility] Start: 07-05-2023 End: 07-05-2023 ambulatory Sage Kena Work Phone: [facility] Work Phone: Start: 07-05-2023 End: 07-05-2023 Departed Referred Sage Kena Work Phone: [facility] Start: 06-05-2023 End: 06-05-2023 ambulatory SAGE KENA Not Available Start: 04-23-2023 End: 04-23-2023 ambulatory SAGE KENA Not Available Start: 04-01-2023 End: 04-01-2023 ambulatory Trupti Santos Other [facility] Other Start: 04-01-2023 Office outpatient vi sit [...] abnormal findings DR JENNY MOYER . [facility] Start: 04-02-2022 End: 04-03-[address] JENNY MOYER . Facility:[facility] Start: 04-02-2022 End: 04-03-2022 Encounter for general adult medical examination without abnormal findings DR JENNY MOYER . Facility: Payers Date Payer Category Payer Self-pay 1980 Unknown [id number] 1980 Unknown [id number] 1980 Unknown [id number] 1980 Unknown [id number] 1980 Unknown [id number] 1980 Unknown [id number] 1980 Unknown [id number] 1980 Unknown [id number] 1959 Unknown [id number] 1959 Unknown [id number] Unknown [facility] [employer] . [id number] [facility] [id number] Social History Date Type Detail Facility Unknown if ever smoked [facility] Other Sex Assigned At Sex Assigned At Bir th [facility] Other Start: 1980 Sex Assigned At Female F [facility] Evaluation note 04-01-2023 Note Date & [...] lozenges for comfort, push fluids and rest. [facility] Other Evaluation note Note Date & Type Note Facility Evaluation note No assessment information availa [facility] Work Phone: Summary Purpose Family History No Family History Records FoundNo Family History Records FoundNo Family History Records Found Advance Directives No Advanced Directives Records FoundNo Advanced Directives Records FoundNo Advanced Directives Records Found Additional Source Comments INFORMATION SOURCE (unrecogn ized section and content) DATE CREATED AUTHOR 10/12/2022 [facility] DATE CREATED AUTHOR AUTHOR'S ORGANIZ ATION 07/17/[address] [facility] EPIC DATE CREATED AUTHOR AUTHOR'S ORGANIZ ATION 07/30/2023 [facility] REASON FOR VISIT (unrecogniz ed section [...] THE PRIMARY CLINICAL RECORDS. [facility]. provides no warranty or guarantee of the accuracy or completeness of information in this document.
[2024-04-01 16:20] LABS: Estimated Average Glucose 97 mg/dL
[2024-04-01 16:35] LABS: Free T4 0.98 ng/dL (0.76-1.46)
[2024-04-01 16:38] LABS: Thyroid Stimulating Hormone 2.668 uIU/mL (0.358-3.740)
[2024-04-01 16:40] LABS: HCG Quantitative <1 mIU/mL
[2024-04-03 04:08] LABS: DHEA-Sulfate 67.1 ug/dL (57.3-279.2); FSH 5.1 mIU/mL (.); Luteinizing Hormone(LH) 9.9 mIU/mL (.); Prolactin 20.9 ng/mL (4.8-33.4)
== END 2024-04-01 15:43 | disposition home or self-care (01) ==
PROVIDERS: PCP Family Medicine; Visit Provider Obstetrics & Gynecology
DX: E28.2 Polycystic ovarian syndrome (principal); Z01.419 Encounter for gynecological examination (general) (routine) without abnormal findings; N93.9 Abnormal uterine and vaginal bleeding, unspecified; R23.2 Flushing
CPT/HCPCS: 36415; 82626; 82627; 83001; 83002; 83036; 84146; 84439; 84443; 84702; 85025; 87624; 88175

== ENCOUNTER 2024-04-01 19:25 | Outpatient (REF) | payer BC, SELFPAY ==
--- OUTSIDE RECORDS SUMMARY | 2024-04-01 19:29 | XMS_ITS | CCD ---
Author Organization [facility]ini[facility] Care Team Providers Care Cottrell Blower Name Role Phone JOÃO ., DR ALVARADO [...] Trupti Santos Unavailable Sage Escudero Attending Provider [phone] SAGE ESCUDERO Attending Unavailable SAGE ESCUDERO Attending [...] Test Name Value Interpretation Reference Range Facility [facility] 07-05-2023 L Specimen: [id number] Received: 07/08/23 Status: CANDELARIO Estrada Num: [id number] Spec Type: Surgical Subm Dr: Sage Escudero Tissues: A Fallopian Tube - Sterilization (BILATERAL FT) B Soft Tissue/Surgical Margin-Other than Tumor,Mass,Lip or Shannon (RT OVARIAN CYS Procedures: HE/5, Gross/Micro L4, Gross/Micro L2 Age/ Patient Sex Location Account Attending Physician Nicolasa Colby 43/F [place] [id number] Sage Escudero SPEC NUM: [id number] RECD: 07/08/23 STATUS: CANDELARIO ESTRADA NUM: [id number] NATHANIEL: 07/05/[address]: Sgae Escudero ENTERED: 07/08/[address]: Lencho,Lab SPEC [...] fimbria are purple-red, lush, and otherwise unremarkable. Policy Manager sections are submitted in 4 cassettes as follows: A1-A2 - [place] segment with fimbria entirely submitted A3-A4 - [...] [id number] Received: 07/08/23 Status: CANDELARIO Estrada Num: [id number] Spec Type: Surgical Subm Dr: Sage Escudero Tissues: A Fallopian Tube - Sterilization (BILATERAL FT) B Soft Tissue/Surgical Margin-Other than Tumor,Mass,Lip or Shannon (RT OVARIAN CYS Procedures: HE/5, Gross/Micro L4, Gross/Micro L2 Patient: Nicolasa Colby [id number] (Continued) Specimen: [id number] Received: 07/08/23 (Continued) Signed (signatur e on file) Lazara Grant MD 07/10/232240 Specimen: [id number] Received: 07/08/23 Status: CANDELARIO Estrada Num: [id number] Spec Type: Surgical Subm Dr: Sage Escudero Tissues: A Fallopian Tube - Sterilization (BILATERAL FT) B Soft Tissue/Surgical Margin-Other than Tumor,Mass,Lip or Shannon (RT OVARIAN CYS Procedures: HE/5, Gross/Micro L4, Gross/Micro L2 Patient: Nicolasa Colby [id number] (Continued) Specimen: [id number] Received: 07/08/23 (Continued) CPT Codes 85969, 53637 Specimen: [id number] Received: 07/08/23 Status: CANDELARIO Estrada Num: [id number] Spec Type: Surgical Subm Dr: Sage Escudero Tissues: A Fallopian Tube - Sterilization (BILATERAL FT) B Soft Tissue/Surgical Margin-Other than Tumor,Mass,Lip or Shannon (RT OVARIAN CYS Procedures: HE/5, Gross/Micro L4, Gross/Micro L2 Patient: Nicolasa Colby [id number] (Continued) Signed (signatur e on file) Lazara Grant MD 07/10/23 2248 [facility] Quick Strepon 04-01-2023 S. pyogenes Org specific cx Ql (Throat) Positive [facility] Other Quick Strep [facility] Other Covid-19 PCR ([facility])on SARS-CoV-2 (COVID-19) RNA ZOILA+probe Ql (Unsp spec) Not detected Normal NOT DETECTED [facility] Comment on above: Result Comment: When [...] for this test is supported by the [place] of Health and Human Service's declaration that [...] longer be used). Performed By: #### C [facility] #### [facility] [address] [place] [address] Dr. Cierra Sinha INFLUENZA A AND B AGon 07-12 INFLUANEGH SEE BELOW Normal [facility] Comment on above: Result Comment: Nega tive for Flu A protein angiten. Infection due to Flu A cannot be ruled out. Flu A angiten in the sample may be below the detection limit of the test. Performed By: #### C VDTBH #### [facility] [address] [place] [address] Dr. Cierra Sinha [facility] SEE BELOW Normal [facility] Comment on above: Result Comment: Nega tive for Flu B protein antigen. Infection due to Flu B cannot be ruled out. Flu B antigen in the sample may be below the detection limit of the test. Performed By: #### C VDTBH #### [facility] [address] [place] [address] Dr. Cierra Sinha INFLUENZA A AG Negative Normal NEGATIVE SEE COMMENT [facility] Comment on above: Performed By: #### C VDTBH #### [facility] [address] [place] [address] Dr. Cierra Sinha INFLUENZA B AG Negative Normal NEGATIVE SEE COMMENT [facility] Comment on above: Performed By: #### C VDTBH #### [facility] [address] [place] [address] Dr. Cierra Sinha MG MAMM SCREEN 3D DAYANNA CADon 05-09-2022 MG MAMM SCREEN 3D DAYANNA CAD Patient: NICOLASA COLBY Exam Date: 05/09/2022 : 1980 Gender:F Ordering : DR JENNY MOYER . Admission #: [id number] Family : Order #: [id number] CLICK HERE TO VIEW EXAM RADIOLOGY REPORT [...] liver cancer at age 50. LOCATION: [facility] BREAST COMPOSITION: Scattered areas fibroglandular density. [...] M.D. on 05/09/2022 at 16:13 Normal [facility] GROUP A STREP CULTUREon 04-10 S. pyogenes Ag Ql (Unsp spec) Culture Observations: NEGATIVE FOR GROUP A STREPTOCOCCUS. Normal [facility] Comment on above: Performed By: #### G RASTCX #### [facility] [address] [place] [address] Dr. Cierra Sinha STREPT SCREENon 04-24-2022 STREP SCREEN A Negative Normal NEGATIVE [facility] Comment on above: Performed By: #### S SCRN #### [facility] [address] [place] [address] Dr. Cierra Sinha INSULINon 04-03-2022 Insulin 11.1 uIU/mL Normal 2.6-24.9 [facility] Comment on above: Performed By: #### I NSULIN #### [facility] [address] [place] [address] Dr. Cierra Sinha CBC AUTO DIFFon 04-02-2022 BASO # 0.0 103/ul Normal 0.0-0.1 [facility] Comment on above: Performed By: #### C BC #### [facility] [address] [place] [address] Dr. Cierra Sinha Basophils/100 WBC (Bld) 0.4 % Normal 0.2-2.0 [facility] Comment on above: Performed By: #### C BC #### [facility] [address] [place] [address] Dr. Cierra Sinha EO # 0.1 103/ul Normal 0.0-0.7 [facility] Comment on above: Performed By: #### C BC #### [facility] [address] [place], [place] [id number] Dr. Cierra Sinha Eosinophils/100 WBC (Bld) 1.8 % Normal 0.9-7.0 [facility] Comment on above: Performed By: #### C BC #### [facility] [address] [place] [address] Dr. Cierra Sinha Erythrocyte distribution width (RBC) [Ratio] 12.2 % Normal 11.0-15.0 [facility] Comment on above: Performed By: #### C BC #### [facility] [address] [place] [address] Dr. Cierra Sinha Hematocrit (Bld) [Volume fraction] 37.9 % Normal 36.0-48.0 [facility] Comment on above: Performed By: #### C BC #### [facility] [address] [place] [address] Dr. Cierra Sinha Hemoglobin (Bld) [Mass/Vol] 12.7 g/dL Normal 12.0-16.0 [facility] Comment on above: Performed By: #### C BC #### [facility] [address] [place] [address] Dr. Cierra Sinha IG # 0.05 10e3/ul Critically high 0.00-0.03 [facility] Comment on above: Performed By: #### C BC #### [facility] [address] [place] [address] Dr. Cierra Sinha IG % 0.6 % Critically high 0.0-0.5 [facility] Comment on above: Performed By: #### C BC #### [facility] [address] [place] [address] Dr. Cierra Sinha LYMPH # 2.2 103/ul Normal 1.2-3.8 [facility] Comment on above: Performed By: #### C BC #### [facility] [address] [place] [address] Dr. Cierra Sinha Lymphocytes/100 WBC (Bld) 28.2 % Normal 20.5-60.0 [facility] Comment on above: Performed By: #### C BC #### [facility] [address] [place] [address] Dr. Cierra Sinha MANUAL DIFF REQ NO Normal [facility] Comment on above: Performed By: #### C BC #### [facility] [address] [place] [address] Dr. Cierra Sinha MCH (RBC) [Entitic mass] 29.6 pg Normal 26.7-34.0 [facility] Comment on above: Performed By: #### C BC #### [facility] [address] [place] [address] Dr. Cierra Sinha MCHC (RBC) [Mass/Vol] 33.5 g/dL Normal 29.9-35.2 [facility] Comment on above: Performed By: #### C BC #### [facility] [address] [place] [address] Dr. Cierra Sinha MCV (RBC) [Entitic vol] 88.3 fL Normal 81.0-99.0 [facility] Comment on above: Performed By: #### C BC #### [facility] [address] [place] [address] Dr. Cierra Sinha MONO # 0.6 103/ul Normal 0.3-0.8 [facility] Comment on above: Performed By: #### C BC #### [facility] [address] [place] [address] Dr. Cierra Sinha Monocytes/100 WBC (Bld) 7.4 % Normal 1.7-12.0 [facility] Comment on above: Performed By: #### C BC #### [facility] [address] [place] [address] Dr. Cierra Sinha NEUT # 4.8 103/ul Normal 1.4-6.5 [facility] Comment on above: Performed By: #### C BC #### [facility] [address] [place] [address] Dr. Cierra Sinha Neutrophils/100 WBC (Bld) 61.6 % Normal 43.0-75.0 [facility] Comment on above: Performed By: #### C BC #### [facility] [address] [place] [address] Dr. Cierra Sinha Platelet mean volume (Bld) [Entitic vol] 9.7 fL Normal 9.5-13.5 [facility] Comment on above: Performed By: #### C BC #### [facility] [address] [place] [address] Dr. Cierra Sinha PLT 280 103/ul Normal 150-450 [facility] Comment on above: Performed By: #### C BC #### [facility] [address] [place] [address] Dr. Cierra Sinha RBC 4.29 106/ul Normal 4.20-5.40 [facility] Comment on above: Performed By: #### C BC #### [facility] [address] [place] [address] Dr. Cierra Sinha WBC 7.9 103/ul Normal 4.0-11.0 [facility] Comment on above: Performed By: #### C BC #### [facility] [address] [place] [address] Dr. Cierra Sinha FREE THYROXINE INDEX T7on FTI 2.55 Normal 1.30-4.50 [facility] Comment on above: Performed By: #### T SH, LIPID, T7, CMP #### [facility] [address] [place] [address] Dr. Cierra Sinha T3U 29.0 % Critically low 30.0-39.0 [facility] Comment on above: Performed By: #### T SH, LIPID, T7, CMP #### [facility] [address] [place] [address] Dr. Cierra Sinha T4 [Mass/Vol] 8.80 ug/dL Normal 4.80-13.90 [facility] Comment on above: Performed By: #### T SH, LIPID, T7, CMP #### [facility] [address] [place] [address] Dr. Cierra Sinha GLYCOHEMOGLOBIN A1Con 2021 ADA RECOMMENDATION SEE BELOW Normal [facility] Comment on above: Result Comment: ADA RECOMMENDED LIMIT 4.0 - 6.0 ADA THERAPEUTIC TARGET < 7.0 ACTION SUGGESTED > 7.0 Performed By: #### C VDTBH #### [facility] [address] [address] [address] Cierra Sinha Glucose [Mass/Vol] 100 mg/dL Normal [facility] Comment on above: Performed By: #### C VDTBH #### [facility] [address] [address] [address] Cierra Sinha HbA1c (Bld) [Mass fraction] 5.1 % Normal 4.5-6.2 [facility] Comment on above: Performed By: #### C VDTBH #### [facility] [address] [address] [address] Cierra Sinha IRONon 04-02-2022 Iron [Mass/Vol] 83.0 ug/dL Normal 50.0-170.0 [facility] Comment on above: Performed By: #### C VDTBH #### [facility] [address] [place] [address] Dr. Cierra Sinha LIPID PROFILEon 04-02-2022 CHOL-HDL RATIO NORM SEE BELOW Normal [facility] Comment on above: Result Comment: 3.3 - 4.4 LOW RISK 4.4 - 7.1 AVERAGE RISK 7.1 - 11.0 MODERATE RISK >11.0 HIGH RISK Performed By: #### T SH, LIPID, T7, CMP #### [facility] [address] [place] [address] Dr. Cierra Sinha Cholesterol [Mass/Vol] 161 mg/dL Normal <=200 [facility] Comment on above: Performed By: #### T SH, LIPID, T7, CMP #### [facility] [address] [address] [address] Cierra Sinha Cholesterol in HDL [Mass/Vol] 52 mg/dL Normal 40-60 [facility] Comment on above: Performed By: #### T SH, LIPID, T7, CMP #### [facility] [address] [address] [address] Cierra Sinha Cholesterol in LDL [Mass/Vol] 97.6 mg/dL Normal [facility] Comment on above: Performed By: #### T SH, LIPID, T7, CMP #### [facility] [address] [address] [address] Cierra Sinha Cholesterol.total/Ch olesterol in HDL [Mass ratio] 3.1 {ratio} Normal [facility] Comment on above: Performed By: #### T SH, LIPID, T7, CMP #### [facility] [address] [address] [address] Cierra Sinha HDL NORMAL > or = 60 mg/dl - LOW CARDIOVASCULAR RISK <40 mg/dl - HIGH CARDIOVASCULAR RISK Normal [facility] Comment on above: Performed By: #### T SH, LIPID, T7, CMP #### [facility] [address] [address] [address] Cierra Sinha LDL CALC NORMAL SEE BELOW Normal [facility] Comment on above: Result Comment: <100 mg/dl OPTIMAL 100 - 129 mg/dl NEAR OR ABOVE OPTIMAL 130 - 159 mg/dl BORDERLINE HIGH 160 - 189 mg/dl HIGH >190 mg/dl VERY HIGH Performed By: #### T SH, LIPID, T7, CMP #### [facility] [address] [address] [address] Cierra Sinha Triglyceride [Mass/Vol] 57 mg/dL Normal <=150 [facility] Comment on above: Performed By: #### T SH, LIPID, T7, CMP #### [facility] [address] [place] [address] Dr. Cierra Sinha VLDL CALC 11.4 mg/dL Normal [facility] Comment on above: Performed By: #### T SH, LIPID, T7, CMP #### [facility] [address] [address] [address] Cierra Sinha PROF 14(COMP METB)on 022 Albumin [Mass/Vol] 3.6 g/dL Normal 3.4-5.0 [facility] Comment on above: Performed By: #### T SH, LIPID, T7, CMP #### [facility] [address] [address] [address] Cierra Sinha Albumin/Globulin [Mass ratio] 0.9 {ratio} Normal [facility] Comment on above: Performed By: #### T SH, LIPID, T7, CMP #### [facility] [address] [address] [address] Cierra Sinha ALP [Catalytic activity/Vol] 88 U/L Normal 46-116 [facility] Comment on above: Performed By: #### T SH, LIPID, T7, CMP #### [facility] [address] [address] [address] Cierra Sinha ALT [Catalytic activity/Vol] 26 U/L Normal 14-59 [facility] Comment on above: Performed By: #### T SH, LIPID, T7, CMP #### [facility] [address] [address] [address] Cierra Sinha Anion gap [Moles/Vol] 7.4 mmol/L Normal [facility] Comment on above: Performed By: #### T SH, LIPID, T7, CMP #### [facility] [address] [place] [address] Dr. Cierra Sinha AST [Catalytic activity/Vol] 19 U/L Normal 15-37 [facility] Comment on above: Performed By: #### T SH, LIPID, T7, CMP #### [facility] [address] [address] [address] Cierra Sinha Bilirubin [Mass/Vol] 0.5 mg/dL Normal 0.2-1.0 [facility] Comment on above: Performed By: #### T SH, LIPID, T7, CMP #### [facility] [address] [address] [address] Cierra Sinha Calcium [Mass/Vol] 8.6 mg/dL Normal 8.5-10.1 [facility] Comment on above: Performed By: #### T SH, LIPID, T7, CMP #### [facility] [address] [address] [address] Cierra Sinha Chloride [Moles/Vol] 102 mmol/L Normal 98-107 [facility] Comment on above: Performed By: #### T SH, LIPID, T7, CMP #### [facility] [address] [address] [address] Cierra Sinha CO2 [Moles/Vol] 30.0 mmol/L Normal 21.0-32.0 [facility] Comment on above: Performed By: #### T SH, LIPID, T7, CMP #### [facility] [address] [place] [address] Dr. Cierra Sinha Creatinine [Mass/Vol] 0.61 mg/dL Normal 0.55-1.02 [facility] Comment on above: Performed By: #### T SH, LIPID, T7, CMP #### [facility] [address] [address] [address] Cierra Sinha EGFR-AF MALAWIAN >60 Normal >=60 [facility] Comment on above: Performed By: #### T SH, LIPID, T7, CMP #### [facility] [address] [place] [address] Dr. Cierra Sinha EGFR-NON AF MALAWIAN >60 Normal >=60 [facility] Comment on above: Performed By: #### T SH, LIPID, T7, CMP #### [facility] [address] [place] [address] Dr. Cierra Sinha Globulin (S) [Mass/Vol] 4.0 g/dL Normal [facility] Comment on above: Performed By: #### T SH, LIPID, T7, CMP #### [facility] [address] [place] [address] Dr. Cierra Sinha Glucose [Mass/Vol] 90 mg/dL Normal 74-106 [facility] [place] Comment on above: Performed By: #### T SH, LIPID, T7, CMP #### [facility] [address] [address] [address] Cierra Sinha Potassium [Moles/Vol] 3.4 mmol/L Critically low 3.5-5.1 [facility] Comment on above: Performed By: #### T SH, LIPID, T7, CMP #### [facility] [address] [place] [address] Dr. Cierra Sinha Protein [Mass/Vol] 7.6 g/dL Normal 6.4-8.2 [facility] [place] Comment on above: Performed By: #### T SH, LIPID, T7, CMP #### [facility] [address] [address] [address] Cierra Sinha Sodium [Moles/Vol] 136 mmol/L Normal 136-145 [facility] Comment on above: Performed By: #### T SH, LIPID, T7, CMP #### [facility] [address] [address] [address] Cierra Sinha Urea nitrogen [Mass/Vol] 8.0 mg/dL Normal 7.0-18.0 [facility] Comment on above: Performed By: #### T SH, LIPID, T7, CMP #### [facility] [address] [place], [place] [address] Dr. Cierra Sinha Urea nitrogen/Creatinine [Mass ratio] 13.1 mg/mg Normal [facility] Comment on above: Performed By: #### T SH, LIPID, T7, CMP #### [facility] [address] [address] [address] Cierra Sinha TSHon 04-02-2022 TSH 1.352 uIU/mL Normal 0.358-3.740 [facility] Comment on above: Performed By: #### T SH, LIPID, T7, CMP #### [facility] [address] [address] [address] Cierra Sinha Vital Signs Date Time Vital Sign Value Performing Clinician Facility 04-01-2023 17:55-0400 Body height 160.02 cm Trupti Santos Other [facility] Other 04-01-2023 17:55-0400 Body mass index (BMI) [Ratio] 33.09 kg/m2 Trupti Santos Other [facility] Other 04-01-2023 17:55-0400 Body temperature 98.3 [degF] Trupti Santos Other [facility] Other 04-01-2023 17:55-0400 Body weight 84.73 kg Trupti Santos Other [facility] Other 04-01-2023 17:55-0400 Respiratory rate 18 /min Trupti Santos Other [facility] Other 04-01-2023 17:55-0400 SaO2% (BldA) [Mass fraction] 99 % Trupti Santos Other [facility] Other Encounters Encounter Date Encounter Type Care Provider Facility Start: 07-16-2023 End: 07-16-2023 ambulatory CORTNEY DOMINGUEZ Not Available Start: 07-05-2023 End: 07-05-2023 ambulatory Sage Kena Facility:[facility] Start: 07-05-2023 End: 07-05-2023 ambulatory Sage Kena Work Phone: [facility] Work Phone: Start: 07-05-2023 End: 07-05-2023 Departed Referred Sage Kena Work Phone: [facility] Start: 06-05-2023 End: 06-05-2023 ambulatory SAGE KENA Not Available Start: 04-23-2023 End: 04-23-2023 ambulatory SAGE EKNA Not Available Start: 04-01-2023 End: 04-01-2023 ambulatory Trupti Santos Other [facility] Other Start: 04-01-2023 Office outpatient vi sit [...] abnormal findings DR JENNY MOYER . [facility] Start: 04-02-2022 End: 04-03-[address] JENNY MOYER . Facility:[facility] Start: 04-02-2022 End: 04-03-2022 Encounter for general adult medical examination without abnormal findings DR JENNY MOYER . Facility: Payers Date Payer Category Payer Self-pay 1980 Unknown [id number] 1980 Unknown [id number] 1980 Unknown [id number] 1980 Unknown [id number] 1980 Unknown [id number] 1980 Unknown [id number] 1980 Unknown [id number] 1980 Unknown [id number] 1959 Unknown [id number] 1959 Unknown [id number] Unknown Regular [employer] . [id number] [facility] [id number] Social History Date Type Detail Facility Unknown if ever smoked [facility] Other Sex Assigned At Sex Assigned At Bir th [facility] Other Start: 1980 Sex Assigned At Female F [facility] Evaluation note 04-01-2023 Note Date & Type [...] lozenges for comfort, push fluids and rest. [facility] Other Evaluation note Note Date & Type Note Facility Evaluation note No assessment information availa [facility] Work Phone: Summary Purpose Family History No Family History Records FoundNo Family History Records FoundNo Family History Records Found Advance Directives No Advanced Directives Records FoundNo Advanced Directives Records FoundNo Advanced Directives Records Found Additional Source Comments INFORMATION SOURCE (unrecogn ized section and content) DATE CREATED AUTHOR 10/12/2022 [facility] DATE CREATED AUTHOR AUTHOR'S ORGANIZ ATION 07/17/2023 [facility] EPIC DATE CREATED AUTHOR AUTHOR'S ORGANIZ ATION 07/30/2023 [facility] REASON FOR VISIT (unrecogniz ed section and [...] BE BASED ON THE PRIMARY CLINICAL RECORDS. [facility] [employer] [facility]. provides no warranty or guarantee of the accuracy or completeness of information in this document.
== END 2024-04-01 19:26 | disposition home or self-care (01) ==
LOC: LAB 19:25
PROVIDERS: PCP Family Medicine; Visit Provider Obstetrics & Gynecology
DX: Z01.419 Encounter for gynecological examination (general) (routine) without abnormal findings (principal)
CPT/HCPCS: 87624; 88175

== ENCOUNTER 2024-04-22 10:02 | Outpatient (OUT) | payer BC, SELFPAY ==
--- NOTE | 2024-04-22 10:04 | US_ITS ---
[address] [address] Patient Name: NICOLASA COLBY MRN: [id number] date: 1980 Sex: F Assigned Patient Location: [facility] Current Patient Location: Accession/Order Number: [id number] Exam Date: 04/22/2024 10:04 Report Date: 04/23/2024 04:56 At the request of: SAGE MARION Procedure: US pelvis w/ transvaginal EXAMINATION: US pelvis w/ transvaginal HISTORY: POLYCYSTIC OVARIAN SYNDROME COMPARISON: Ultrasound pelvis 03/28/2023 TECHNIQUE: Transabdominal and/or transvaginal sonographic examination was performed as indicated by examination type. FINDINGS: UTERUS: Normal size and appearance. Uterus size: 8.1 x 4.5 x 5.8 cm ENDOMETRIUM: Normal homogeneous appearance. Endometrial thickness: 7 mm RIGHT OVARY: Normal size and appearance. Duplex Doppler demonstrates normal waveform and flow; resistive index 0.7. Ovary size: 2.9 x 1.6 x 1.7 cm LEFT OVARY: Contains a 2.7 cm benign-appearing cyst. Duplex Doppler demonstrates normal waveform and flow; resistive index 0.6. Ovary size: 3.5 x 2.1 x 3.0 cm CUL-DE-SAC: Unremarkable. No significant free fluid. BLADDER: Unremarkable. OTHER: None. US/US pelvis w/ transvaginal IMPRESSION: 1. No ultrasound evidence of polycystic ovarian syndrome. 2. Benign-appearing 2.7 cm cyst within left ovary. No additional follow-up recommended at this time. Electronically authenticated by: HAO ANNE Date: 04/23/2024 04:56
--- OUTSIDE RECORDS SUMMARY | 2024-04-22 10:25 | XMS_ITS | CCD ---
Author Organization [facility] CliniSymi Care Team Providers Care Product Support Manager Name Role Phone JOÃO ., DR ALVARADO [...] Humberto Wahl Consulting Unavailable HOY ., DR LAVARADO Primary Care Unavailable HOY ., DR ALVARADO Admitting Unavailable HOY ., DR ALVARADO Attending Unavailable HOY ., DR ALVARADO Consulting Unavailable Trupti Santos Unavailable Sage Escudero Attending Provider Sage Escudero Attending Unavailable Sage Escudero Admitting Unavailable Jenny Leone MD Primary Care Provider [phone] SAGE ESCUDERO Attending Unavailable SAGE ESCUDERO Attending Unavailable CORTNEY DOMINGUEZ Attending Unavailable SAGE ESCUDERO Attending Unavailable Medications Current Medications Medication Drug Class(es) Dates Sig (Normalized) Sig (Original) amoxicillin 500 mg oral capsule (1 source) Penicillin-class Antibacterial Start: 04-01-2023 take 1 capsule by mouth every twelve hours Amoxicillin 500 MG 1 tablet Orally two times a day for 10 days Mar, Active cetirizine hydrochloride 10 mg oral tablet (5 sources) Histamine-1 Receptor Antagonist take 1 tablet by mouth in the morning cetirizine (ZyrTEC) 10 MG tablet Take 10 mg by mouth in the morning. Active take 1 tablet by mouth once saundra y ZyrTEC 10 MG 1 tablet Orally Once a day Active methylPREDNISolone 4 mg oral tablet (1 source) Corticosteroid Start: 04-01-2023 methylPREDNISolone 4 MG as directed Orally Mar, Active mometasone furoate 0.05 mg/actuat metered dose nasal spray (6 sources) Corticosteroid take 2 spray(s) nasal route in the morning mometasone (Nasonex) 50 MCG/ACT nasal spray Administer 2 sprays into each nostril in the morning. Active Nasonex Active Problems Active Problems Problem Classification Problem Date Documented Da te Episodic/Chronic Malaise and fatigue (2 sources) Tired; Translations: [Other fatigue] 04-01-2024 Episodic Other endocrine disorders (2 sources) Polycystic ovary syndrome; Translations: [Polycystic ovarian syndrome] 04-01-2024 Chronic Other female genital disorders (2 sources) Abnormal uterine bleeding; Translations: [Abnormal uterine and vaginal bleeding, unspecified] 04-01-2024 Chronic Other screening for suspected conditions (not mental disorders or infectious disease) (6 sources) Encounter for screening mammogram for malignant neoplasm of breast; Translations: [Patient encounter status] Onset: 05-09-2022 Episodic Other upper respiratory infections (10 sources) Acute pharyngitis, unspecified; Translations: [Streptococcal pharyngitis] Onset: 04-24-2022 Episodic Residual codes; unclassified (2 sources) Flushing; Translations: [Flushing] 04-01-2024 Episodic Unclassified (3 sources) CONTACT W/AND (SUSP) EXPOS COVID-19; Translations: [CONTACT W/AND (SUSP) EXPOS COVID-19] Onset: 07-15-2022 Past or Other Problems Problem Classification Problem Date Documented Da te Episodic/Chronic Residual codes; unclassified (1 source) Family history [...] Test Name Value Interpretation Reference Range Facility MLR HEMOGLOBIN A1Con 04-01- 024 Glucose [Mass/Vol] 97 [facility] HbA1c (Bld) [Mass fraction] 5 % 4.5 - 6.2 % [facility] Comment on above: ADA RECOMMENDED LIMI T 4.0 - 6.0 ADA THERAPEUTIC TARGET < 7.0 ACTION SUGGESTED > 7.0 [facility] Healthcar e Alejandro 07-05-2023 L Specimen: [id number] Received: 07/08/23 Status: SOUT Req Num: [id number] Spec Type: Surgical Subm Dr: Sage Escudero Tissues: A Fallopian Tube - Sterilization (BILATERAL FT) B Soft Tissue/Surgical Margin-Other than Tumor,Mass,Lip or Shannon (RT OVARIAN CYS Procedures: HE/5, Gross/Micro L4, Gross/Micro L2 Age/ Patient Sex Location Account Attending Physician Nicolasa Colby L 43/F LABELL [id number] Sage Escudero SPEC NUM: [id number] RECD: 07/08/23 STATUS: SOUT REQ NUM: [id number] NATHANIEL: 07/05/[address]: Sage Escudero ENTERED: 07/08/23 [facility] DR: Lencho,Valerie SPEC TYPE: Surgical DEPT: KAREN MCNEIL ORDERED: [...] fimbria are purple-red, lush, and otherwise unremarkable. Chopped Strand Operator sections are submitted in 4 cassettes as follows: A1-A2 - [place] segment with fimbria entirely submitted A3-A4 - [...] [id number] Received: 07/08/23 Status: CANDELARIO Estrada Num: [id number] Spec Type: Surgical Subm Dr: Sage Escudero Tissues: A Fallopian Tube - Sterilization (BILATERAL FT) B Soft Tissue/Surgical Margin-Other than Tumor,Mass,Lip or Shannon (RT OVARIAN CYS Procedures: HE/5, Gross/Micro L4, Gross/Micro L2 Patient: RoberNicolasa [id number] (Continued) Specimen: [id number] Received: 07/08/23 (Continued) Signed (signatur e on file) Lazara Grant MD 07/10/23 2241 Specimen: [id number] Received: 07/08/23 Status: CANDELARIO Estrada Num: [id number] Spec Type: Surgical Subm Dr: Sage Escudero Tissues: A Fallopian Tube - Sterilization (BILATERAL FT) B Soft Tissue/Surgical Margin-Other than Tumor,Mass,Lip or Shannon (RT OVARIAN CYS Procedures: HE/5, Gross/Micro L4, Gross/Micro L2 Patient: Nicolasa Colby [id number] (Continued) Specimen: [id number] Received: 07/08/23 (Continued) CPT Codes 02800, 70297 Specimen: [id number] Received: 07/08/23-2 Status: CANDELARIO Estrada Num: [id number] Spec Type: Surgical Subm Dr: Sage Escudero Tissues: A Fallopian Tube - Sterilization (BILATERAL FT) B Soft Tissue/Surgical Margin-Other than Tumor,Mass,Lip or Shannon (RT OVARIAN CYS Procedures: HE/5, Gross/Micro L4, Gross/Micro L2 Patient: Nicolasa Colby [id number] (Continued) Signed (signatur e on file) Lazara Grant MD 07/10/23 7123 [facility] Quick Strepon 04-01-2023 S. pyogenes Org specific cx Ql (Throat) Positive [facility] Other [employer] Help[employer] Other [facility]on SARS-CoV-2 (COVID-19) RNA ZOILA+probe Ql (Unsp spec) Not detected Normal NOT DETECTED [facility] Comment on above: Result Comment: When [...] for this test is supported by the [place] of Health and Human Service's declaration that [...] used). Performed By: #### C VDTBH #### [facility] [address] [place] [address] Dr. Cierra Sinha INFLUENZA A AND B AGon 07-12 [facility] SEE BELOW Normal [facility] Comment on above: Result Comment: Nega tive for Flu A protein angiten. Infection due to Flu A cannot be ruled out. Flu A angiten in the sample may be below the detection limit of the test. Performed By: #### C VDTBH #### [facility] [address] [place] [address] Dr. [facility] Normal [facility] Comment on above: Result Comment: Nega tive for Flu B protein antigen. Infection due to Flu B cannot be ruled out. Flu B antigen in the sample may be below the detection limit of the test. Performed By: #### C VDTBH #### [facility] [address] [place] [address] Dr. Cierra Sinha INFLUENZA A AG Negative Normal NEGATIVE SEE COMMENT [facility] Comment on above: Performed By: #### C VDTBH #### [facility] [address] [address] [address] Cierra Sinha INFLUENZA B AG Negative Normal NEGATIVE SEE COMMENT [facility] Comment on above: Performed By: #### C VDTBH #### [facility] [address] [address] [address] Cierra Sinha MG MAMM SCREEN 3D DAYANNA CADon 05-09-2022 MG MAMM SCREEN 3D DAYANNA CAD Patient: NICOLASA COLBY Exam Date: 05/09/2022 : 1980 Gender:F Ordering : DR JENNY LEONE . Admission #: [id number] Family : Order #: [id number] CLICK HERE TO VIEW EXAM RADIOLOGY REPORT [...] liver cancer at age 50. LOCATION: [facility] BREAST COMPOSITION: Scattered areas fibroglandular density. [...] M.D. on 05/09/2022 at 16:13 Normal [facility] GROUP A STREP CULTUREon 04-10 S. pyogenes Ag Ql (Unsp spec) Culture Observations: NEGATIVE FOR GROUP A STREPTOCOCCUS. Normal [facility] Comment on above: Performed By: #### G RASTCX #### [facility] [address] [address] [address] Cierra Sinha STREPT SCREENon 04-24-2022 STREP SCREEN A Negative Normal NEGATIVE [facility] Comment on above: Performed By: #### S SCRN #### [facility] [address] [place] [address] Dr. Cierra Sinha INSULINon 04-03-2022 Insulin 11.1 uIU/mL Normal 2.6-24.9 [facility] Comment on above: Performed By: #### I NSULIN #### [facility] [address] [place] [address] Dr. Cierra Sinha CBC AUTO DIFFon 04-02-2022 BASO # 0.0 103/ul Normal 0.0-0.1 [facility] Comment on above: Performed By: #### C BC #### [facility] [address] [place] [address] Dr. Cierra Sinha Basophils/100 WBC (Bld) 0.4 % Normal 0.2-2.0 [facility] Comment on above: Performed By: #### C BC #### [facility] [address] [place] [address] Dr. Cierra Sinha EO # 0.1 103/ul Normal 0.0-0.7 [facility] Comment on above: Performed By: #### C BC #### [facility] [address] [place] [address] Dr. Cierra Sinha Eosinophils/100 WBC (Bld) 1.8 % Normal 0.9-7.0 [facility] Comment on above: Performed By: #### C BC #### [facility] [address] [place] [address] Dr. Cierra Sinha Erythrocyte distribution width (RBC) [Ratio] 12.2 % Normal 11.0-15.0 [facility] Comment on above: Performed By: #### C BC #### [facility] [address] [place] [address] Dr. Cierra Sinha Hematocrit (Bld) [Volume fraction] 37.9 % Normal 36.0-48.0 [facility] Comment on above: Performed By: #### C BC #### [facility] [address] [place] [address] Dr. Cierra Sinha Hemoglobin (Bld) [Mass/Vol] 12.7 g/dL Normal 12.0-16.0 [facility] Comment on above: Performed By: #### C BC #### [facility] [address] [place] [address] Dr. Cierra Sinha IG # 0.05 10e3/ul Critically high 0.00-0.03 [facility] Comment on above: Performed By: #### C BC #### [facility] [address] [place] [address] Dr. Cierra Sinha IG % 0.6 % Critically high 0.0-0.5 [facility] Comment on above: Performed By: #### C BC #### [facility] [address] [place] [address] Dr. Cierra Sinha LYMPH # 2.2 103/ul Normal 1.2-3.8 [facility] Comment on above: Performed By: #### C BC #### [facility] [address] [place] [address] Dr. Cierra Sinha Lymphocytes/100 WBC (Bld) 28.2 % Normal 20.5-60.0 [facility] Comment on above: Performed By: #### C BC #### [facility] [address] [place] [address] Dr. Cierra Sinha MANUAL DIFF REQ NO Normal [facility] Comment on above: Performed By: #### C BC #### [facility] [address] [place] [address] Dr. Cierra Sinha MCH (RBC) [Entitic mass] 29.6 pg Normal 26.7-34.0 [facility] Comment on above: Performed By: #### C BC #### [facility] [address] [place] [address] Dr. Cierra Sinha MCHC (RBC) [Mass/Vol] 33.5 g/dL Normal 29.9-35.2 [facility] Comment on above: Performed By: #### C BC #### [facility] [address] [place] [address] Dr. Cierra Sinha MCV (RBC) [Entitic vol] 88.3 fL Normal 81.0-99.0 [facility] Comment on above: Performed By: #### C BC #### [facility] [address] [place] [address] Dr. Cierra Sinha MONO # 0.6 103/ul Normal 0.3-0.8 [facility] Comment on above: Performed By: #### C BC #### [facility] [address] [place] [address] Dr. Cierra Sinha Monocytes/100 WBC (Bld) 7.4 % Normal 1.7-12.0 [facility] Comment on above: Performed By: #### C BC #### [facility] [address] [place] [address] Dr. Cierra Sinha NEUT # 4.8 103/ul Normal 1.4-6.5 [facility] Comment on above: Performed By: #### C BC #### [facility] [address] [place] [address] Dr. Cierra Sinha Neutrophils/100 WBC (Bld) 61.6 % Normal 43.0-75.0 [facility] Comment on above: Performed By: #### C BC #### [facility] [address] [place] [address] Dr. Cierra Sinha Platelet mean volume (Bld) [Entitic vol] 9.7 fL Normal 9.5-13.5 [facility] Comment on above: Performed By: #### C BC #### [facility] [address] [place] [address] Dr. Cierra Sinha PLT 280 103/ul Normal 150-450 [facility] Comment on above: Performed By: #### C BC #### [facility] [address] [place] [address] Dr. Cierra Sinha RBC 4.29 106/ul Normal 4.20-5.40 [facility] Comment on above: Performed By: #### C BC #### [facility] [address] [place] [address] Dr. Cierra Sinha WBC 7.9 103/ul Normal 4.0-11.0 [facility] Comment on above: Performed By: #### C BC #### [facility] [address] [address] [address] Cierra Sinha FREE THYROXINE INDEX T7on FTI 2.55 Normal 1.30-4.50 [facility] Comment on above: Performed By: #### T SH, LIPID, T7, CMP #### [facility] [address] [address] [address] Ceirra Sinha T3U 29.0 % Critically low 30.0-39.0 [facility] Comment on above: Performed By: #### T SH, LIPID, T7, CMP #### [facility] [address] [address] [address] Cierra Sinha T4 [Mass/Vol] 8.80 ug/dL Normal 4.80-13.90 [facility] Comment on above: Performed By: #### T SH, LIPID, T7, CMP #### [facility] [address] [address] [address] Cierra Sinha GLYCOHEMOGLOBIN A1Con 2021 ADA RECOMMENDATION SEE BELOW Normal [facility] Comment on above: Result Comment: ADA RECOMMENDED LIMIT 4.0 - 6.0 ADA THERAPEUTIC TARGET < 7.0 ACTION SUGGESTED > 7.0 Performed By: #### C VDTBH #### [facility] [address] [place] [address] Dr. Cierra Sinha Glucose [Mass/Vol] 100 mg/dL Normal [facility] Comment on above: Performed By: #### C VDTBH #### [facility] [address] [place] [address] Dr. Cierra Sinha HbA1c (Bld) [Mass fraction] 5.1 % Normal 4.5-6.2 [facility] Comment on above: Performed By: #### C VDTBH #### [facility] [address] [place] [address] Dr. Cierra Sinha IRONon 04-02-2022 Iron [Mass/Vol] 83.0 ug/dL Normal 50.0-170.0 [facility] Comment on above: Performed By: #### C VDTBH #### [facility] [address] [address] [address] Cierra Sinha LIPID PROFILEon 04-02-2022 CHOL-HDL RATIO NORM SEE BELOW Normal [facility] Comment on above: Result Comment: 3.3 - 4.4 LOW RISK 4.4 - 7.1 AVERAGE RISK 7.1 - 11.0 MODERATE RISK >11.0 HIGH RISK Performed By: #### T SH, LIPID, T7, CMP #### [facility] [address] [address] [address] Cierra Sinha Cholesterol [Mass/Vol] 161 mg/dL Normal <=200 [facility] Comment on above: Performed By: #### T SH, LIPID, T7, CMP #### [facility] [address] [address] [address] Cierra Sinha Cholesterol in HDL [Mass/Vol] 52 mg/dL Normal 40-60 [facility] Comment on above: Performed By: #### T SH, LIPID, T7, CMP #### [facility] [address] [address] [address] Cierra Sinha Cholesterol in LDL [Mass/Vol] 97.6 mg/dL Normal [facility] Comment on above: Performed By: #### T SH, LIPID, T7, CMP #### [facility] [address] [address] [address] Cierra Sinha Cholesterol.total/Ch olesterol in HDL [Mass ratio] 3.1 {ratio} Normal [facility] Comment on above: Performed By: #### T SH, LIPID, T7, CMP #### [facility] [address] [address] [address] Cierra Sinha HDL NORMAL > or = 60 mg/dl - LOW CARDIOVASCULAR RISK <40 mg/dl - HIGH CARDIOVASCULAR RISK Normal [facility] Comment on above: Performed By: #### T SH, LIPID, T7, CMP #### [facility] [address] [address] [address] Cierra Sinha LDL CALC NORMAL SEE BELOW Normal [facility] Comment on above: Result Comment: <100 mg/dl OPTIMAL 100 - 129 mg/dl NEAR OR ABOVE OPTIMAL 130 - 159 mg/dl BORDERLINE HIGH 160 - 189 mg/dl HIGH >190 mg/dl VERY HIGH Performed By: #### T SH, LIPID, T7, CMP #### [facility] [address] [place] [address] Dr. Cierra Sinha Triglyceride [Mass/Vol] 57 mg/dL Normal <=150 [facility] Comment on above: Performed By: #### T SH, LIPID, T7, CMP #### [facility] [address] [place] [address] Dr. Cierra Sinha VLDL CALC 11.4 mg/dL Normal [facility] Comment on above: Performed By: #### T SH, LIPID, T7, CMP #### [facility] [address] [place] [address] Dr. Cierra Sinha PROF 14(COMP METB)on 022 Albumin [Mass/Vol] 3.6 g/dL Normal 3.4-5.0 [facility] Comment on above: Performed By: #### T SH, LIPID, T7, CMP #### [facility] [address] [place] [address] Dr. Cierra Sinha Albumin/Globulin [Mass ratio] 0.9 {ratio} Normal [facility] Comment on above: Performed By: #### T SH, LIPID, T7, CMP #### [facility] [address] [place] [address] Dr. Cierra Sinha ALP [Catalytic activity/Vol] 88 U/L Normal 46-116 [facility] Comment on above: Performed By: #### T SH, LIPID, T7, CMP #### [facility] [address] [place] [address] Dr. Cierra Sinha ALT [Catalytic activity/Vol] 26 U/L Normal 14-59 [facility] Comment on above: Performed By: #### T SH, LIPID, T7, CMP #### [facility] [address] [place] [address] Dr. Cierra Sinha Anion gap [Moles/Vol] 7.4 mmol/L Normal [facility] Comment on above: Performed By: #### T SH, LIPID, T7, CMP #### [facility] [address] [place] [address] Dr. Cierra Sinha AST [Catalytic activity/Vol] 19 U/L Normal 15-37 [facility] Comment on above: Performed By: #### T SH, LIPID, T7, CMP #### [facility] [address] [place] [address] Dr. Cierra Sinha Bilirubin [Mass/Vol] 0.5 mg/dL Normal 0.2-1.0 [facility] Comment on above: Performed By: #### T SH, LIPID, T7, CMP #### [facility] [address] [place] [address] Dr. Cierra Sinha Calcium [Mass/Vol] 8.6 mg/dL Normal 8.5-10.1 [facility] Comment on above: Performed By: #### T SH, LIPID, T7, CMP #### [facility] [address] [place] [address] Dr. Cierra Sinha Chloride [Moles/Vol] 102 mmol/L Normal 98-107 [facility] Comment on above: Performed By: #### T SH, LIPID, T7, CMP #### [facility] [address] [place] [address] Dr. Cierra Sinha CO2 [Moles/Vol] 30.0 mmol/L Normal 21.0-32.0 [facility] Comment on above: Performed By: #### T SH, LIPID, T7, CMP #### [facility] [address] [place] [address] Dr. Cierra Sinha Creatinine [Mass/Vol] 0.61 mg/dL Normal 0.55-1.02 [facility] Comment on above: Performed By: #### T SH, LIPID, T7, CMP #### [facility] [address] [place] [address] Dr. Cierra Sinha EGFR-AF GAMBIAN >60 Normal >=60 [facility] Comment on above: Performed By: #### T SH, LIPID, T7, CMP #### [facility] [address] [place] [address] Dr. Cierra Sinha EGFR-NON AF GAMBIAN >60 Normal >=60 [facility] Comment on above: Performed By: #### T SH, LIPID, T7, CMP #### [facility] [address] [address] [address] Cierra Sinha Globulin (S) [Mass/Vol] 4.0 g/dL Normal [facility] Comment on above: Performed By: #### T SH, LIPID, T7, CMP #### [facility] [address] [address] [address] Cierra Sinha Glucose [Mass/Vol] 90 mg/dL Normal 74-106 [facility] Comment on above: Performed By: #### T SH, LIPID, T7, CMP #### [facility] [address] [address] [address] Cierra Sinha Potassium [Moles/Vol] 3.4 mmol/L Critically low 3.5-5.1 [facility] Comment on above: Performed By: #### T SH, LIPID, T7, CMP #### [facility] [address] [place] [address] Dr. Cierra Sinha Protein [Mass/Vol] 7.6 g/dL Normal 6.4-8.2 [facility] Comment on above: Performed By: #### T SH, LIPID, T7, CMP #### [facility] [address] [address] [address] Cierra Sinha Sodium [Moles/Vol] 136 mmol/L Normal 136-145 [facility] Comment on above: Performed By: #### T SH, LIPID, T7, CMP #### [facility] [address] [address] [address] Cierra Sinha Urea nitrogen [Mass/Vol] 8.0 mg/dL Normal 7.0-18.0 [facility] Comment on above: Performed By: #### T SH, LIPID, T7, CMP #### [facility] [address] [address] [address] Cierra Sinha Urea nitrogen/Creatinine [Mass ratio] 13.1 mg/mg Normal [facility] Comment on above: Performed By: #### T SH, LIPID, T7, CMP #### [facility] [address] [place], [place] [address] Dr. Cierra Sinha TSHon 04-02-2022 TSH 1.352 uIU/mL Normal 0.358-3.740 [facility] Comment on above: Performed By: #### T SH, LIPID, T7, CMP #### [facility] [address] [place], [place] [address] Dr. Cierra Sinha Vital Signs Date Time Vital Sign Value Performing Clinician Facility 04-01-2024 15:09-0400 Body mass index (BMI) [Ratio] 32.31 kg/m2 [employer] Work Phone: [facility] 04-01-2024 15:09-0400 Body weight 82.74 kg Sage Kena CX Work Phone: [facility] 04-01-2024 15:09-0400 Diastolic blood pressure 76 mm[Hg] Sage Kena CX Work Phone: [facility] 04-01-2024 15:09-0400 Systolic blood pressure 122 mm[Hg] Sage Kena CX Work Phone: [facility] 04-01-2023 17:55-0400 Body height 160.02 cm Trupti Santos Other [facility] Other 04-01-2023 17:55-0400 Body mass index (BMI) [Ratio] 33.09 kg/m2 Trupti Santos Other [facility] Other 04-01-2023 17:55-0400 Body temperature 98.3 [degF] Trupti Santos Other [facility] Other 04-01-2023 17:55-0400 Body weight 84.73 kg Trupti Santos Other [facility] Other 04-01-2023 17:55-0400 Respiratory rate 18 /min Trupti Santos Other [facility] Other 04-01-2023 17:55-0400 SaO2% (BldA) [Mass fraction] 99 % Trupti Santos Other [facility] Other Encounters Encounter Date Encounter Type Care Provider Facility Start: 04-01-2024 End: 04-01-2024 Patient encounter procedure Sage Kena DO Work Phone: [facility] Work Phone: Start: 04-01-2024 End: 04-01-2024 Periodic preventive med est patient 40-64yrs Sage Kena DO Work Phone: [facility] Comment on above: Well woman exam with routine gynecological exam; Breast cancer screening by mammogram; Hot flashes; Tiredness; PCOS (polycystic ovarian syndrome); Abnormal uterine bleeding (AUB) Start: 04-01-2024 End: 04-01-2024 ambulatory SAGE KENA Not Available Start: 04-01-2024 End: 04-01-2024 Bamboo flowsheet Sage Kena DO Work Phone: [facility] Start: 04-01-2024 End: 04-01-2024 Bamboo flowsheet Sage Kena DO Work Phone: [facility] Start: 04-01-2024 End: 04-01-2024 Clinisync Result Encounter Sage Kena DO Work Phone: [facility] Unsolicited Start: 07-16-2023 End: 07-16-2023 ambulatory CORTNEY DOMINGUEZ Not Available Start: 07-05-2023 End: 07-05-2023 ambulatory Sage Kena Facility:[facility] Start: 07-05-2023 End: 07-05-2023 ambulatory Sage Kena Work Phone: [place] Work Phone: Start: 07-05-2023 End: 07-05-2023 Departed Referred Sage Escudero Work Phone: [facility] Start: 06-05-2023 End: 06-05-2023 ambulatory SAGE GARNERO Not Available Start: 04-23-2023 End: 04-23-2023 ambulatory SAGE GARNERO Not Available Start: 04-01-2023 End: 04-01-2023 ambulatory Trupti Santos Other [facility] Other Start: 04-01-2023 Office outpatient vi sit 15 minutes Trupti Santos [facility] Start: 10-11-2022 End: 10-11-[address] JENNY LEONE . Facility:[facility] Start: 07-12-2022 End: 07-12-[address] JENNY LEONE . Facility:[facility] Start: 05-09-2022 End: 05-10-[address] JENNY LEONE . Facility:[facility] Start: 04-24-2022 End: 04-25-[address] JENNY LEONE . Facility:[facility] Start: 04-04-2022 Encounter for genera l adult medical examination without abnormal findings DR JENNY LEONE . [facility] Start: 04-02-2022 End: 04-03-[address] JENNY LEONE . Facility:[facility] Start: 04-02-2022 End: 04-03-2022 Encounter for general adult medical examination without abnormal findings DR JENNY LEONE . Facility:[facility] Procedures Date Procedure Procedure Detail Performing Clinician Start: 04-01-2024 MLR HEMOGLOBIN A1C Core y Kena DO Work Phone: Start: 05-22-2023 Mammography Sage Fazi o DO Work Phone: Start: 03-26-2023 Microscopic observat ion [Identifier] in Cervix by Cyto stain Sage Kena DO Work Phone: Plan of Treatment Date Care Activity Detail Author Start: 03-26-2028 Screening for malign ant neoplasm of cervix [facility] Start: 04-05-2025 End: 04-05-2025 Patient encounter procedure 04/05/2025 4:00 PM EDT Office Visit [facility] [address] [place] [phone] Sage Escudero, DO [address] [place] [address] [facility] Start: 05-22-2024 Screening for malign ant neoplasm of breast Mammogram [facility] Start: 04-22-2024 End: 04-22-2024 Professional / ancillary services management 04/22/2024 10:00 AM EST Ancillary Procedure [facility] [address] [place] [phone] [facility] Start: 04-01-2024 End: 04-01-2024 Patient encounter procedure 04/01/2024 3:00 PM EDT Office Visit [facility] [address] [place] [phone] Sage Escudero, DO [address] [place] [address] Arrived [facility] Comment on above: Arrived Start: 04-01-2024 End: 04-01-2025 DHEA DHEA Lab Routine PCOS (polycystic ovarian syndrome) Expected: 04/01/2024 (Approximate), Expires: 04/01/2025 [facility] Comment on above: Expected: 04/01/2024 (Approximate), Expires: 04/01/2025 Start: 04-01-2024 End: 06-01-2025 MG Breast - bilateral Screening Bilateral screening mammogram Imaging Routine Breast cancer screening by mammogram Expected: 04/01/2024 (Approximate), Expires: 06/01/2025 [facility] Work Phone: Comment on above: Expected: 04/01/2024 (Approximate), Expires: 06/01/2025 Start: 04-01-2024 End: 04-01-2025 US for US PELVIS-TRANSVAG IF INDICATED Imaging Routine PCOS (polycystic ovarian syndrome) Expected: 04/01/2024 (Approximate), Expires: 04/01/2025 [facility] Comment on above: Expected: 04/01/2024 (Approximate), Expires: 04/01/2025 Start: 02-09-2024 Influenza vaccination Influenza Vacc ine (#1) [facility] CBC W Auto Different ial panel - Blood CBC and differential Lab Routine PCOS (polycystic ovarian syndrome) Ordered: 04/01/2024 [facility] Comment on above: Ordered: 04/01/2024 DHEA-sulfate DHEA-sulfate Lab Routine PCOS (polycystic ovarian syndrome) Ordered: 04/01/2024 [facility] Comment on above: Ordered: 04/01/2024 Follicle stimulating hormone Follicle stimulating hormone Lab Routine PCOS (polycystic ovarian syndrome) Ordered: 04/01/2024 [facility] Comment on above: Ordered: 04/01/2024 hCG, quantitative, hCG, quantitative, Lab Routine PCOS (polycystic ovarian syndrome) Ordered: 04/01/2024 [facility] Comment on above: Ordered: 04/01/2024 Hemoglobin A1c/Hemoglobin.total in Blood Hemoglobin A1c Lab Routine Abnormal uterine bleeding (AUB) Ordered: 04/01/2024 [facility] Comment on above: Ordered: 04/01/2024 Luteinizing hormone Luteinizing hormone Lab Routine PCOS (polycystic ovarian syndrome) Ordered: 04/01/2024 [facility] Comment on above: Ordered: 04/01/2024 Prolactin Prolactin Lab Ro utine Hot flashes PCOS (polycystic ovarian syndrome) Abnormal uterine bleeding (AUB) Ordered: 04/01/2024 [facility] Comment on above: Ordered: 04/01/2024 THIN PREP TIS PAP AN D HR HPV DNA THIN PREP TIS PAP AND HR HPV DNA Pathology and Cytology Routine Well woman exam with routine gynecological exam Ordered: 04/01/2024 [facility] Comment on above: Ordered: 04/01/2024 Thyrotropin [Units/volume] in Serum or Plasma TSH Lab Routine PCOS (polycystic ovarian syndrome) Ordered: 04/01/2024 [facility] Comment on above: Ordered: 04/01/2024 Thyroxine (T4) free [Mass/volume] in Serum or Plasma T4, free Lab Routine PCOS (polycystic ovarian syndrome) Ordered: 04/01/2024 [facility] Comment on above: Ordered: 04/01/2024 Immunizations Immunization Date Immunization Notes Care Provider John ovalle 03-26-2022 influenza virus vacc ine, unspecified formulation Sage Escudero DO Work Phone: [facility] Payers Date Payer Category Payer Self-pay 2022 [facility] [id number] 1980 Unknown [id number] 1980 Unknown [id number] .593 1980 Unknown [id number] .593 1980 Unknown [id number] .593 1980 Unknown [id number] [id number] .593 1980 Unknown [id number] [id number] .1259 1980 Unknown [id number] [id number] .1259 1980 Unknown [id number] [id number] .1259 1980 Unknown [id number] .1259 1959 Unknown [id number] 1959 Unknown [id number] Unknown Regular Auto/Medical . [id number] Unknown [facility] [id number] Social History Date Type Detail Facility Unknown if ever smoked [facility] Other Start: 03-24-2023 Sex Assigned At N [facility] Other Start: 1980 Sex Assigned At Female [facility] Start: 03-24-2023 [facility] Start: 07-16-2023 Alcoholic beverage intake Current drinker of alcohol (finding) [facility] Start: 03-24-2023 History of Social function [facility] Start: 03-24-2023 Alcohol Comment less than yamileth hly , Caffeine intake: 1-2 cups per day coffee, soda/pop [facility] Start: 1980 Sex assigned at Not on file [facility] History of Present illness Narrative 04-01-2024 eL Dawson LPN - 04/01/2024 3:00 PM EDT Note Date & Type Note Facility 04-01-2024 History of Presen t illness Narrative Reason for Appointment: Patient ID: Nicolasa Colby is a 44 y.o. female who presents for Well Women Visit Patient presents today for Annual Exam. MEDICATIONS Current Outpatient Medications Medication Instructions cetirizine (ZYRTEC) 10 mg, Oral, Daily mometasone (Nasonex) 50 MCG/ACT nasal spray 2 sprays, Each Nostril, Daily ALLERGIES No Known Allergies PROBLEMS Active Ambulatory Problems Diagnosis Date Noted No Active Ambulatory Problems Resolved Ambulatory Problems Diagnosis Date Noted No Resolved Ambulatory Problems Past Medical History: Diagnosis Date Abnormal Pap smear of cervix Arthritis Breast cancer screening by mammogram 05/22/2023 HISTORY PAST MEDICAL HISTORY SOCIAL HISTORY Past Medical History: Diagnosis Date Abnormal Pap smear of cervix Arthritis Breast cancer screening by mammogram 05/22/2023 neg Social History Tobacco Use Smoking status: Never Smokeless tobacco: Not on file Substance Use Topics Alcohol use: Yes Comment: less than monthly , Caffeine intake: 1-2 cups per day coffee, soda/pop Drug use: Never FAMILY HISTORY Family History Problem Relation Name Age of Onset Rheum arthritis Mother Diabetes Mother Uterine cancer Mother Stroke Mother Diabetes Maternal Grandmother SURGICAL HISTORY Past Surgical History: Procedure Laterality Date ENDOMETRIAL ABLATION 07/05/2023 HYSTEROSCOPY 07/05/2023 OVARIAN CYST REMOVAL Bilateral 07/05/2023 SALPINGECTOMY Bilateral 07/05/2023 REVIEW OF SYSTEMS Review of Systems: Review of Systems Constitutional: Negative. HENT: Negative. Eyes: Negative. Respiratory: Negative. Cardiovascular: Negative. Gastrointestinal: Negative. Genitourinary: Negative. Musculoskeletal: Negative. Skin: Negative. Neurological: Negative. All other systems reviewed and are negative. Hematological: Negative. Endocrine: Negative. Allergic/Immunologic: Negative. OBJECTIVE Objective: Physical Exam Constitutional: Appearance: Normal appearance. She is well-developed. Genitourinary: Vulva normal. Breasts: Breasts are soft. Right: Normal. Left: Normal. Cardiovascular: Rate and Rhythm: Normal rate and regular rhythm. Pulmonary: Effort: Pulmonary effort is normal. Breath sounds: Normal breath sounds. Abdominal: General: Bowel sounds are normal. There is no distension. Palpations: Abdomen is soft. Tenderness: There is no abdominal tenderness. There is no guarding or rebound. Musculoskeletal: General: No swelling. Normal range of motion. Right lower leg: No edema. Left lower leg: No edema. Neurological: Mental Status: She is alert and oriented to person, place, and time. Skin: General: Skin is warm and dry. Psychiatric: Mood and Affect: Mood normal. Behavior: Behavior normal. Vitals and nursing note reviewed. Exam conducted with a sporting goods sales manager present. Vitals: Estimated body mass index is 32.31 kg/m as calculated from the following: Height as of 03/26/23: 5' 3 . Weight as of this encounter: 182 lb 6.4 oz. BP: 122/76 No LMP recorded. Patient has had an ablation. ASSESSMENT & PLAN ICD-10-CM 1. Well woman exam with routine gynecological exam Z01.419 THIN PREP TIS PAP AND HR HPV DNA 2. Breast cancer screening by mammogram Z12.31 Bilateral screening mammogram Bilateral screening mammogram 3. Hot flashes R23.2 4. Tiredness R53.83 5. PCOS (polycystic ovarian syndrome) E28.2 Annual: Patient presents today for an annual exam. Patient states she is doing well and has complaints of hot flashes, tired all the time. Pt given labs and ultrasound orders to have obtained. Discussed adding metformin vs hormones. Pap was obtained without difficulty and patient given mammogram order to have scheduled/obtained. Orders Placed This Encounter Procedures Bilateral screening mammogram Follow Up: Patient is to return in one year for annual unless needed otherwise. Documented by Le Dawson LPN on behalf of: Sage Escudero DO documented in this encounter [facility] Evaluation note 04-01-2023 Note Date & Type [...] lozenges for comfort, push fluids and rest. [facility] Other Evaluation note Note Date & Type Note Facility Evaluation note No assessment information availa [facility] Work Phone: Evaluation note Note Date & Type Note Facility Evaluation note Diagnosis Well woman exam with routine gynecological exam Routine gynecological examination Breast cancer screening by mammogram Hot flashes Tiredness Other malaise and fatigue PCOS (polycystic ovarian syndrome) Polycystic ovaries Abnormal uterine bleeding (AUB) documented in this encounter [facility] Summary Purpose Family History No Family History Records FoundNo Family History Records FoundNo Family History Records Found Advance Directives No Advanced Directives Records FoundNo Advanced Directives Records FoundNo Advanced Directives Records Found Additional Source Comments INFORMATION SOURCE (unrecogn ized section and content) DATE CREATED AUTHOR 10/12/2022 [facility] DATE CREATED AUTHOR AUTHOR'S ORGANIZ ATION 07/30/2023 [facility] DATE CREATED AUTHOR AUTHOR'S ORGANIZ ATION 04/03/2024 [facility] EPIC REASON FOR VISIT (unrecogniz ed section and content) Reason Comments Well Women Visit Care Teams (unrecognized sec tion and content) Team Status: Inactive Member Role Status Dates Sage Escudero Attending Provider Active Start: Cameron doan 2023 End: July 05, 2023 Product Support Manager Relationship Specialty Start Date End Date Jenny Leone MD [address] [place] [address] PCP - General Family Medicine 03/26/23 Product Support Manager Relationship Specialty Start Date End Date Jenny Leone MD [address] [place] [address] PCP - General Family Medicine 03/26/23 Product Support Manager Relationship Specialty Start Date End Date Jenny Leone MD [address] [place] [address] PCP - General Family Medicine 03/26/23 Goals (unrecognized section and content) Goals may [...] BE BASED ON THE PRIMARY CLINICAL RECORDS. [employer] provides no warranty or guarantee of the accuracy or completeness of information in this document.
== END 2024-04-22 10:03 | disposition home or self-care (01) ==
LOC: NOMS 10:03
PROVIDERS: PCP Family Medicine; Visit Provider Obstetrics & Gynecology
DX: E28.2 Polycystic ovarian syndrome (principal)
CPT/HCPCS: 76830; 76856

== ENCOUNTER 2024-05-25 13:12 | Outpatient (OUT) | payer BC, SELFPAY ==
--- NOTE | 2024-05-25 13:16 | MM_ITS ---
Patient Name: NICOLASA COLBY MR#: [id number] : 1980 Exam Date: 05/25/2024 Ordering Doctor: DR Vince Escudero . RADIOLOGY REPORT PROCEDURE: MM TOMOSYNTHESIS SCREENING BI COMPARISON: MM TOMOSYNTHESIS SCREENING BI, 05/21/2023. MG MAMM SCREEN 3D DAYANNA CAD, 05/09/2022. INDICATIONS: Screening for malignant neoplasm Calculator Name NCI Breast Cancer Risk Assessment Tool 5 Year Breast Cancer Risk 0.70% Lifetime Breast Cancer Risk 9.40% Personal Breast Cancer No Personal Ovarian Cancer No Treatments None Family Cancers Aunt-maternal with ovarian cancer at age 58; Mother with uterine cancer at age 34; Aunt-paternal with liver cancer at age ~50. LOCATION: [facility] BREAST COMPOSITION: There are scattered areas of fibroglandular density. FINDINGS: DIAGNOSTIC CATEGORY 1--NEGATIVE. NO CHANGE FROM COMPARISON ASSESSMENT. Scattered benign-appearing lymph nodes are present. RIGHT BREAST: No significant suspicious finding. LEFT BREAST: No significant suspicious finding. RECOMMENDATIONS: ROUTINE MAMMOGRAM AND CLINICAL EVALUATION IN 12 MONTHS. PLEASE NOTE: A NORMAL MAMMOGRAM DOES NOT EXCLUDE THE POSSIBILITY OF BREAST CANCER. A CLINICALLY SUSPICIOUS PALPABLE LUMP SHOULD BE BIOPSIED. Dictated by: Kodi Pantoja MD on 05/25/2024 at 14:13 Approved by: Kodi Pantoja MD on 05/25/2024 at 14:14
--- OUTSIDE RECORDS SUMMARY | 2024-05-25 13:17 | XMS_ITS | CCD ---
Author Organization [facility] CliniSyin Care Team Providers Care Property Preservation Specialist Name Role Phone JOÃO ., DR ALVARADO [...] Unavailable Jenny Leone MD Primary Care Provider [phone] SAGE ESCUDERO Attending Unavailable CORTNEY DOMINGUEZ Attending Unavailable SAGE ESCUDERO Attending Unavailable SAGE ESCUDERO Attending Unavailable Medications Current Medications Medication Drug Class(es) Dates Sig (Normalized) Sig (Original) amoxicillin 500 mg oral capsule (1 source) Penicillin-class Antibacterial Start: 04-01-2023 take 1 capsule by mouth every twelve hours Amoxicillin 500 MG 1 tablet Orally two times a day for 10 days Mar, Active cetirizine hydrochloride 10 mg oral tablet (8 sources) Histamine-1 Receptor Antagonist take 1 tablet [...] furoate 0.05 mg/actuat metered dose nasal spray (9 sources) Corticosteroid take 2 spray(s) nasal route in the morning mometasone (Nasonex) 50 MCG/ACT nasal spray Administer 2 sprays into each nostril in the morning. Active Nasonex Active Problems Active Problems Problem Classification Problem Date Documented Da te Episodic/Chronic Malaise and fatigue (4 sources) Tired; Translations: [Other fatigue] 04-01-2024 Episodic Other endocrine disorders (4 sources) Polycystic ovary syndrome; Translations: [Polycystic ovarian [...] pharyngitis] Onset: 04-24-2022 Episodic Residual codes; unclassified (4 sources) Flushing; Translations: [Flushing] 04-01-2024 Episodic Unclassified [...] A1Con 04-01- 024 Glucose [Mass/Vol] 97 mg[facility] HbA1c (Bld) [Mass fraction] 5 % 4.5 - 6.2 % [facility] Comment on above: ADA RECOMMENDED LIMI T 4.0 - 6.0 ADA THERAPEUTIC TARGET < 7.0 ACTION SUGGESTED > 7.0 [facility] Healthcar e Alejandro 07-05-2023 L Specimen: [id number] Received: 07/08/23 Status: SOUT Req Num: [id number] Spec Type: Surgical Subm Dr: Sage Escudero Tissues: A Fallopian Tube - Sterilization (BILATERAL FT) B Soft Tissue/Surgical Margin-Other than Tumor,Mass,Lip or Shannon (RT OVARIAN CYS Procedures: HE/5, Gross/Micro L4, Gross/Micro L2 Age/ Patient Sex Location Account Attending Physician Nicolasa Colby L 43/F LABELL [id number] Sage Escudero SPEC NUM: [id number] RECD: 07/08/23 STATUS: SOUT REQ NUM: [id number] NATHANIEL: 07/05/[address]: Sage Escudero ENTERED: 07/08/[address] [facility] DR: Lencho,Valerie SPEC TYPE: Surgical DEPT: KAREN [...] fimbria are purple-red, lush, and otherwise unremarkable. Engineering Group Manager sections are submitted in 4 cassettes as follows: A1-A2 - [place] segment with fimbria entirely submitted A3-A4 - [...] [id number] Received: 07/08/23 Status: CANDELARIO Estrada Num: [id number] Spec Type: Surgical Subm Dr: Sage Escudero Tissues: A Fallopian Tube - Sterilization (BILATERAL FT) B Soft Tissue/Surgical Margin-Other than Tumor,Mass,Lip or Shannon (RT OVARIAN CYS Procedures: HE/5, Gross/Micro L4, Gross/Micro L2 Patient: RoberNicolasa [id number] (Continued) Specimen: [id number] Received: 07/08/23 (Continued) Signed (signatur e on file) Lazara Grant MD 07/10/23 2241 Specimen: [id number] Received: 07/08/23 Status: CANDELARIO Estrada Num: [id number] Spec Type: Surgical Subm Dr: Sage Escudero Tissues: A Fallopian Tube - Sterilization (BILATERAL FT) B Soft Tissue/Surgical Margin-Other than Tumor,Mass,Lip or Shannon (RT OVARIAN CYS Procedures: HE/5, Gross/Micro L4, Gross/Micro L2 Patient: Nicolasa Colby [id number] (Continued) Specimen: [id number] Received: 07/08/23 (Continued) CPT Codes 40638, 69235 Specimen: [id number] Received: 07/08/23-2 Status: CANDELARIO Estrada Num: [id number] Spec Type: Surgical Subm Dr: Sage Escudero Tissues: A Fallopian Tube - Sterilization (BILATERAL FT) B Soft Tissue/Surgical Margin-Other than Tumor,Mass,Lip or Shannon (RT OVARIAN CYS Procedures: HE/5, Gross/Micro L4, Gross/Micro L2 Patient: Nicolasa Colby [id number] (Continued) Signed (signatur e on file) Lazara Grant MD 07/10/23 3549 [facility] Quick Strepon 04-01-2023 S. pyogenes Org specific cx Ql (Throat) Positive Code On Network Coding Other Quick Nutritionix Other Covid-19 PCR ([facility]on SARS-CoV-2 (COVID-19) RNA ZOILA+probe Ql (Unsp spec) Not detected Normal NOT DETECTED [facility] Comment on above: Result Comment: When [...] for this test is supported by the [place] of Health and Human Service's declaration that [...] used). Performed By: #### C VDTBH #### [facility] [address] [place] [address] Dr. Cierra Sinha INFLUENZA A AND B AGon 07-12 [facility] SEE BELOW Normal [facility] Comment on above: Result Comment: Nega tive for Flu A protein angiten. Infection due to Flu A cannot be ruled out. Flu A angiten in the sample may be below the detection limit of the test. Performed By: #### C VDTBH #### [facility] [address] [place] [address] Dr. [facility] BEL[facility] Normal [facility] Comment on above: Result Comment: Nega tive for Flu B protein antigen. Infection due to Flu B cannot be ruled out. Flu B antigen in the sample may be below the detection limit of the test. Performed By: #### C VDTBH #### [facility] [address] [place] [address] Dr. Cierra Sihna INFLUENZA A AG Negative Normal NEGATIVE SEE COMMENT [facility] Comment on above: Performed By: #### C VDTBH #### [facility] [address] [address] [address] Cierra Sinha INFLUENZA B AG Negative Normal NEGATIVE SEE COMMENT [facility] Comment on above: Performed By: #### C VDTBH #### [facility] [address] [address] [address] Cierra Sinha MG MAMM SCREEN 3D DAYANNA CADon 05-09-2022 MG MAMM SCREEN 3D DAYANNA CAD Patient: NICOLASA COLBY Exam Date: 05/09/2022 : 1980 Gender:F Ordering : DR JENNY LEONE . Admission #: [id number] Family : Order #: [id number] CLICK HERE TO VIEW EXAM RADIOLOGY REPORT [...] liver cancer at age 50. LOCATION: [facility] BREAST COMPOSITION: Scattered areas fibroglandular density. [...] M.D. on 05/09/2022 at 16:13 Normal [facility] GROUP A STREP CULTUREon 04-10 S. pyogenes Ag Ql (Unsp spec) Culture Observations: NEGATIVE FOR GROUP A STREPTOCOCCUS. Normal [facility] Comment on above: Performed By: #### G RASTCX #### [facility] [address] [address] [address] Cierra Sinha STREPT SCREENon 04-24-2022 STREP SCREEN A Negative Normal NEGATIVE [facility] Comment on above: Performed By: #### S SCRN #### [facility] [address] [place] [address] Dr. Cierra Sinha INSULINon 04-03-2022 Insulin 11.1 uIU/mL Normal 2.6-24.9 [facility] Comment on above: Performed By: #### I NSULIN #### [facility] [address] [place] [address] Dr. Cierra Sinha CBC AUTO DIFFon 04-02-2022 BASO # 0.0 103/ul Normal 0.0-0.1 [facility] Comment on above: Performed By: #### C BC #### [facility] [address] [place] [address] Dr. Cierra Sinha Basophils/100 WBC (Bld) 0.4 % Normal 0.2-2.0 [facility] Comment on above: Performed By: #### C BC #### [facility] [address] [place] [address] Dr. Cierra Sinha EO # 0.1 103/ul Normal 0.0-0.7 [facility] Comment on above: Performed By: #### C BC #### [facility] [address] [place] [address] Dr. Cierra Sinha Eosinophils/100 WBC (Bld) 1.8 % Normal 0.9-7.0 [facility] Comment on above: Performed By: #### C BC #### [facility] [address] [place] [address] Dr. Cierra Sinha Erythrocyte distribution width (RBC) [Ratio] 12.2 % Normal 11.0-15.0 [facility] Comment on above: Performed By: #### C BC #### [facility] [address] [place] [address] Dr. Cierra Sinha Hematocrit (Bld) [Volume fraction] 37.9 % Normal 36.0-48.0 [facility] Comment on above: Performed By: #### C BC #### [facility] [address] [place] [address] Dr. Cierra Sinha Hemoglobin (Bld) [Mass/Vol] 12.7 g/dL Normal 12.0-16.0 [facility] Comment on above: Performed By: #### C BC #### [facility] [address] [place] [address] Dr. Cierra Sinha IG # 0.05 10e3/ul Critically high 0.00-0.03 [facility] Comment on above: Performed By: #### C BC #### [facility] [address] [place] [address] Dr. Cierra Sinha IG % 0.6 % Critically high 0.0-0.5 [facility] Comment on above: Performed By: #### C BC #### [facility] [address] [place] [address] Dr. Cierra Sinha LYMPH # 2.2 103/ul Normal 1.2-3.8 [facility] Comment on above: Performed By: #### C BC #### [facility] [address] [place] [address] Dr. Cierra Sinha Lymphocytes/100 WBC (Bld) 28.2 % Normal 20.5-60.0 [facility] Comment on above: Performed By: #### C BC #### [facility] [address] [place] [address] Dr. Cierra Sinha MANUAL DIFF REQ NO Normal [facility] Comment on above: Performed By: #### C BC #### [facility] [address] [place] [address] Dr. Cierra Sinha MCH (RBC) [Entitic mass] 29.6 pg Normal 26.7-34.0 [facility] Comment on above: Performed By: #### C BC #### [facility] [address] [place] [address] Dr. Cierra Sinha MCHC (RBC) [Mass/Vol] 33.5 g/dL Normal 29.9-35.2 [facility] Comment on above: Performed By: #### C BC #### [facility] [address] [place] [address] Dr. Cierra Sinha MCV (RBC) [Entitic vol] 88.3 fL Normal 81.0-99.0 [facility] Comment on above: Performed By: #### C BC #### [facility] [address] [place] [address] Dr. Cierra Sinha MONO # 0.6 103/ul Normal 0.3-0.8 [facility] Comment on above: Performed By: #### C BC #### [facility] [address] [place] [address] Dr. Cierra Sinha Monocytes/100 WBC (Bld) 7.4 % Normal 1.7-12.0 [facility] Comment on above: Performed By: #### C BC #### [facility] [address] [place] [address] Dr. Cierra Sinha NEUT # 4.8 103/ul Normal 1.4-6.5 [facility] Comment on above: Performed By: #### C BC #### [facility] [address] [place] [address] Dr. Cierra Sinha Neutrophils/100 WBC (Bld) 61.6 % Normal 43.0-75.0 [facility] Comment on above: Performed By: #### C BC #### [facility] [address] [place] [address] Dr. Cierra Sinha Platelet mean volume (Bld) [Entitic vol] 9.7 fL Normal 9.5-13.5 [facility] Comment on above: Performed By: #### C BC #### [facility] [address] [place] [address] Dr. Cierra Sinha PLT 280 103/ul Normal 150-450 [facility] Comment on above: Performed By: #### C BC #### [facility] [address] [place] [address] Dr. Cierra Sinha RBC 4.29 106/ul Normal 4.20-5.40 [facility] Comment on above: Performed By: #### C BC #### [facility] [address] [place] [address] Dr. Cierra Sinha WBC 7.9 103/ul Normal 4.0-11.0 [facility] Comment on above: Performed By: #### C BC #### [facility] [address] [address] [address] Cierra Sinha FREE THYROXINE INDEX T7on FTI 2.55 Normal 1.30-4.50 [facility] Comment on above: Performed By: #### T SH, LIPID, T7, CMP #### [facility] [address] [address] [address] Cierra Sinha T3U 29.0 % Critically low 30.0-39.0 [facility] Comment on above: Performed By: #### T SH, LIPID, T7, CMP #### [facility] [address] [address] [address] Cierra Sinha T4 [Mass/Vol] 8.80 ug/dL Normal 4.80-13.[address] [facility] Comment on above: Performed By: #### T SH, LIPID, T7, CMP #### [facility] [address] [address] [address] Cierra Sinha GLYCOHEMOGLOBIN A1Con 2021 ADA RECOMMENDATION SEE BELOW Normal [facility] Comment on above: Result Comment: ADA RECOMMENDED LIMIT 4.0 - 6.0 ADA THERAPEUTIC TARGET < 7.0 ACTION SUGGESTED > 7.0 Performed By: #### C VDTBH #### [facility] [address] [place] [address] Dr. Cierra Sinha Glucose [Mass/Vol] 100 mg/dL Normal [facility] [place] [facility] Comment on above: Performed By: #### C VDTBH #### [facility] [address] [place] [address] Dr. Cierra Sinha HbA1c (Bld) [Mass fraction] 5.1 % Normal 4.5-6.2 [facility] Comment on above: Performed By: #### C VDTBH #### [facility] [address] [place] [address] Dr. Cierra Sinha IRONon 04-02-2022 Iron [Mass/Vol] 83.0 ug/dL Normal 50.0-170.0 [facility] Comment on above: Performed By: #### C VDTBH #### [facility] [address] [address] [address] Cierra Sinha LIPID PROFILEon 04-02-2022 CHOL-HDL RATIO NORM SEE BELOW Normal [facility] Comment on above: Result Comment: 3.3 - 4.4 LOW RISK 4.4 - 7.1 AVERAGE RISK 7.1 - 11.0 MODERATE RISK >11.0 HIGH RISK Performed By: #### T SH, LIPID, T7, CMP #### [facility] [address] [address] [address] Cierra Sinha Cholesterol [Mass/Vol] 161 mg/dL Normal <=200 [facility] Comment on above: Performed By: #### T SH, LIPID, T7, CMP #### [facility] [address] [address] [address] Cierra Sinha Cholesterol in HDL [Mass/Vol] 52 mg/dL Normal 40-60 [facility] Comment on above: Performed By: #### T SH, LIPID, T7, CMP #### [facility] [address] [address] [address] Cierra Sinha Cholesterol in LDL [Mass/Vol] 97.6 mg/dL Normal [facility] Comment on above: Performed By: #### T SH, LIPID, T7, CMP #### [facility] [address] [address] [address] Cierra Sinha Cholesterol.total/Ch olesterol in HDL [Mass ratio] 3.1 {ratio} Normal [facility] Comment on above: Performed By: #### T SH, LIPID, T7, CMP #### [facility] [address] [address] [address] Cierra Sinha HDL NORMAL > or = 60 mg/dl - LOW CARDIOVASCULAR RISK <40 mg/dl - HIGH CARDIOVASCULAR RISK Normal [facility] Comment on above: Performed By: #### T SH, LIPID, T7, CMP #### [facility] [address] [address] [address] Cierra Sinha LDL CALC NORMAL SEE BELOW Normal [facility] Comment on above: Result Comment: <100 mg/dl OPTIMAL 100 - 129 mg/dl NEAR OR ABOVE OPTIMAL 130 - 159 mg/dl BORDERLINE HIGH 160 - 189 mg/dl HIGH >190 mg/dl VERY HIGH Performed By: #### T SH, LIPID, T7, CMP #### [facility] [address] [place] [address] Dr. Cierra Sinha Triglyceride [Mass/Vol] 57 mg/dL Normal <=150 [facility] Comment on above: Performed By: #### T SH, LIPID, T7, CMP #### [facility] [address] [place] [address] Dr. Cierra Sinha VLDL CALC 11.4 mg/dL Normal [facility] Comment on above: Performed By: #### T SH, LIPID, T7, CMP #### [facility] [address] [place] [address] Dr. Cierra Sinha PROF 14(COMP METB)on 022 Albumin [Mass/Vol] 3.6 g/dL Normal 3.4-5.0 [facility] Comment on above: Performed By: #### T SH, LIPID, T7, CMP #### [facility] [address] [place] [address] Dr. Cierra Sinha Albumin/Globulin [Mass ratio] 0.9 {ratio} Normal [facility] Comment on above: Performed By: #### T SH, LIPID, T7, CMP #### [facility] [address] [place] [address] Dr. Cierra Sinha ALP [Catalytic activity/Vol] 88 U/L Normal 46-116 [facility] Comment on above: Performed By: #### T SH, LIPID, T7, CMP #### [facility] [address] [place] [address] Dr. Cierra Sinha ALT [Catalytic activity/Vol] 26 U/L Normal 14-59 [facility] Comment on above: Performed By: #### T SH, LIPID, T7, CMP #### [facility] [address] [place] [address] Dr. Cierra Sinha Anion gap [Moles/Vol] 7.4 mmol/L Normal [facility] Comment on above: Performed By: #### T SH, LIPID, T7, CMP #### [facility] [address] [place] [address] Dr. Cierra Sinha AST [Catalytic activity/Vol] 19 U/L Normal 15-37 [facility] Comment on above: Performed By: #### T SH, LIPID, T7, CMP #### [facility] [address] [place] [address] Dr. Cierra Sinha Bilirubin [Mass/Vol] 0.5 mg/dL Normal 0.2-1.0 [facility] Comment on above: Performed By: #### T SH, LIPID, T7, CMP #### [facility] [address] [place] [address] Dr. Cierra Sinha Calcium [Mass/Vol] 8.6 mg/dL Normal 8.5-10.1 [facility] Comment on above: Performed By: #### T SH, LIPID, T7, CMP #### [facility] [address] [place] [address] Dr. Cierra Sinha Chloride [Moles/Vol] 102 mmol/L Normal 98-107 [facility] Comment on above: Performed By: #### T SH, LIPID, T7, CMP #### [facility] [address] [place] [address] Dr. Cierra Sinha CO2 [Moles/Vol] 30.0 mmol/L Normal 21.0-32.0 [facility] Comment on above: Performed By: #### T SH, LIPID, T7, CMP #### [facility] [address] [place] [address] Dr. Cierra Sinha Creatinine [Mass/Vol] 0.61 mg/dL Normal 0.55-1.02 [facility] Comment on above: Performed By: #### T SH, LIPID, T7, CMP #### [facility] [address] [place] [address] Dr. Cierra Sinha EGFR-AF PAKISTANI >60 Normal >=[address] [facility] Comment on above: Performed By: #### T SH, LIPID, T7, CMP #### [facility] [address] [place] [address] Dr. Cierra Sinha EGFR-NON AF PAKISTANI >60 Normal >=60 [facility] Comment on above: Performed By: #### T SH, LIPID, T7, CMP #### [facility] [address] [address] [address] Cierra Sinha Globulin (S) [Mass/Vol] 4.0 g/dL Normal [facility] Comment on above: Performed By: #### T SH, LIPID, T7, CMP #### [facility] [address] [address] [address] Cierra Sinha Glucose [Mass/Vol] 90 mg/dL Normal 74-106 [facility] Comment on above: Performed By: #### T SH, LIPID, T7, CMP #### [facility] [address] [address] [address] Cierra Sinha Potassium [Moles/Vol] 3.4 mmol/L Critically low 3.5-5.1 [facility] Comment on above: Performed By: #### T SH, LIPID, T7, CMP #### [facility] [address] [place] [address] Dr. Cierra Sinha Protein [Mass/Vol] 7.6 g/dL Normal 6.4-8.2 [facility] Comment on above: Performed By: #### T SH, LIPID, T7, CMP #### [facility] [address] [address] [address] Cierra Sinha Sodium [Moles/Vol] 136 mmol/L Normal 136-145 [facility] Comment on above: Performed By: #### T SH, LIPID, T7, CMP #### [facility] [address] [address] [address] Cierra Sinha Urea nitrogen [Mass/Vol] 8.0 mg/dL Normal 7.0-18.0 [facility] Comment on above: Performed By: #### T SH, LIPID, T7, CMP #### [facility] [address] [address] [address] Cierra Sinha Urea nitrogen/Creatinine [Mass ratio] 13.1 mg/mg Normal [facility] Comment on above: Performed By: #### T SH, LIPID, T7, CMP #### [facility] [address] [place], [place] [address] Dr. Cierra Sinha TSHon 04-02-2022 TSH 1.352 uIU/mL Normal 0.358-3.740 [facility] Comment on above: Performed By: #### T SH, LIPID, T7, CMP #### [facility] [address] [place], [place] [address] Dr. Cierra Sinha Vital Signs Date Time Vital Sign Value Performing Clinician Facility 05-11-2024 15:19-0500 Body mass index (BMI) [Ratio] 31.91 kg/m2 Sage Kena DO Work Phone: [facility] 05-11-2024 15:19-0500 Body weight 81.7 kg Sage Kena DO Work Phone: [facility] 05-11-2024 15:19-0500 Diastolic blood pressure 70 mm[Hg] Sage Kena DO Work Phone: [facility] 05-11-2024 15:19-0500 Systolic blood pressure 120 mm[Hg] Sage Kena DO Work Phone: [facility] 04-01-2024 15:09-0400 Body mass index (BMI) [Ratio] 32.31 kg/m2 Sage Kena DO Work Phone: [facility] 04-01-2024 15:09-0400 Body weight 82.74 kg Sage Kena DO Work Phone: [facility] 04-01-2024 15:09-0400 Diastolic blood pressure 76 mm[Hg] Sage Kena DO Work Phone: [facility] 04-01-2024 15:09-0400 Systolic blood pressure 122 mm[Hg] Sage Kena DO Work Phone: [facility] 04-01-2023 17:55-0400 Body height 160.02 cm Trupti Santos Other [employer] Other 04-01-2023 17:55-0400 Body mass index (BMI) [Ratio] 33.09 kg/m2 Trupti Santos Other [employer] Other 04-01-2023 17:55-0400 Body temperature 98.3 [degF] Trupti Santos Other [employer] Other 04-01-2023 17:55-0400 Body weight 84.73 kg Trupti Santos Other [employer] Other 04-01-2023 17:55-0400 Respiratory rate 18 /min Trupti Santos Other [employer] Other 04-01-2023 17:55-0400 SaO2% (BldA) [Mass fraction] 99 % Trupti Santos Other [employer] Other Encounters Encounter Date Encounter Type Care Provider Facility Start: 05-11-2024 End: 05-11-2024 Office outpatient visit 15 minutes Sage Kena DO Work Phone: [facility] Comment on above: Hot flashes; Tiredness; PCOS (polycystic ovarian syndrome) Start: 05-11-2024 End: 05-11-2024 ambulatory SAGE KENA Not Available Start: 05-11-2024 End: 05-11-2024 Bamboo flowsheet Sage Kena DO Work Phone: [facility] Start: 05-11-2024 End: 05-11-2024 Bamboo flowsheet Sage Kena DO Work Phone: [...] Unsolicited Start: 07-16-2023 End: 07-16-2023 ambulatory CORTNEY ALBERTO Not Available Start: 07-05-2023 End: 07-05-2023 ambulatory Sage Kena Facility:[facility] Start: 07-05-2023 End: 07-05-2023 ambulatory Sage Kena Work Phone: [facility] Work Phone: Start: 07-05-2023 End: 07-05-2023 Departed Referred Sage Kena Work Phone: [facility] Start: 06-05-2023 End: 06-05-2023 ambulatory SAGE KENA Not Available Start: 04-01-2023 End: 04-01-2023 ambulatory Trupti Santos Other [employer] Other Start: 04-01-2023 Office outpatient vi sit 15 minutes Trupti Santos [facility] Start: 10-11-2022 End: 10-11-[address] JENNY LEONE . Facility: Start: 07-12-2022 End: 07-12-[address] JENNY LEONE . Facility:[facility] Start: 05-09-2022 End: 05-10-[address] JENNY LEONE . Facility:[facility] Start: 04-24-2022 End: 04-25-[address] JENNY LEONE . Facility: Start: 04-04-2022 Encounter for genera l adult medical examination without abnormal findings DR JEN[facility] . [facility] Start: 04-02-2022 End: 04-03-[address] JENNY LEONE . Facility: Start: 04-02-2022 End: 04-03-2022 Encounter for general adult medical examination without abnormal findings DR JENNY LEONE . Facility:[facility] Procedures Date Procedure Procedure Detail Performing Clinician Start: 04-01-2024 MLR HEMOGLOBIN A1C Core y Kena DO Work Phone: Start: 04-01-2024 Microscopic observat ion [Identifier] in Cervix by Cyto stain Sage Kena DO Work Phone: Start: 05-22-2023 Mammography Sage Fazi o DO Work Phone: Start: 03-26-2023 Microscopic observat ion [Identifier] in Cervix by Cyto stain Sage Kena DO Work Phone: Plan of Treatment Date Care Activity Detail Author Start: 03-26-2028 Screening for malign ant neoplasm of cervix [facility] Start: 04-01-2027 Screening for malign ant neoplasm of cervix Pap Smear [facility] Start: 04-05-2025 End: 04-05-2025 Patient encounter procedure 04/05/2025 4:00 PM EDT Office Visit [facility] [address] [facility] [place] [id number] Sage Escudero DO [facility] [place], [place] [id number] [facility] Start: 05-22-2024 Screening for malign ant neoplasm of breast Mammogram [facility] Start: 05-11-2024 End: 05-11-2024 Patient encounter procedure 05/11/2024 2:50 PM EST Office Visit [facility] [address] [place] [phone] Sage Escudero, DO [address] [place] [address] Arrived [facility] Comment on above: Arrived Start: 04-22-2024 End: 04-22-2024 Professional / ancillary services management 04/22/2024 10:00 AM EST Ancillary Procedure [facility] [address] [place] [phone] [facility] Start: 04-01-2024 End: 04-01-2024 Patient encounter procedure 04/01/2024 3:00 PM EDT Office Visit [facility] [address] [place] [phone] Sage Escudero, DO [address] [place] [address] Arrived [facility] Comment on above: Arrived Start: 04-01-2024 End: 04-01-2025 DHEA DHEA Lab Routine PCOS (polycystic ovarian syndrome) Expected: 04/01/2024 (Approximate), Expires: 04/01/2025 [facility] Comment on above: Expected: 04/01/2024 (Approximate), Expires: 04/01/2025 Start: 04-01-2024 End: 06-01-2025 MG Breast - bilateral Screening Bilateral screening mammogram Imaging Routine Breast cancer screening by mammogram Expected: 04/01/2024 (Approximate), Expires: 06/01/2025 [facility] Work Phone: Comment on above: Expected: 04/01/2024 (Approximate), Expires: 06/01/2025 Start: 04-01-2024 End: 04-01-2025 US for US PELVIS-TRANSVAG IF INDICATED Imaging Routine PCOS (polycystic ovarian syndrome) Expected: 04/01/2024 (Approximate), Expires: 04/01/2025 [facility] Comment on above: Expected: 04/01/2024 (Approximate), Expires: 04/01/2025 Start: 02-09-2024 Influenza vaccination Influenza Vacc ine (#1) [facility] CBC W Auto Different ial panel - Blood CBC and differential Lab Routine PCOS (polycystic ovarian syndrome) Ordered: 04/01/2024 [facility] Comment on above: Ordered: 04/01/2024 DHEA-sulfate DHEA-sulfate Lab Routine PCOS (polycystic ovarian syndrome) Ordered: 04/01/2024 [facility] Comment on above: Ordered: 04/01/2024 Follicle stimulating hormone Follicle stimulating hormone Lab Routine PCOS (polycystic ovarian syndrome) Ordered: 04/01/2024 [facility] Comment on above: Ordered: 04/01/2024 hCG, quantitative, hCG, quantitative, Lab Routine PCOS (polycystic ovarian syndrome) Ordered: 04/01/2024 [facility] Comment on above: Ordered: 04/01/2024 Hemoglobin A1c/Hemoglobin.total in Blood Hemoglobin A1c Lab Routine Abnormal uterine bleeding (AUB) Ordered: 04/01/2024 [facility] Comment on above: Ordered: 04/01/2024 Luteinizing hormone Luteinizing hormone Lab Routine PCOS (polycystic ovarian syndrome) Ordered: 04/01/2024 [facility] Comment on above: Ordered: 04/01/2024 Prolactin Prolactin Lab Ro utine Hot flashes PCOS (polycystic ovarian syndrome) Abnormal uterine bleeding (AUB) Ordered: 04/01/2024 [facility] Comment on above: Ordered: 04/01/2024 THIN PREP TIS PAP AN D HR HPV DNA THIN PREP TIS PAP AND HR HPV DNA Pathology and Cytology Routine Well woman exam with routine gynecological exam Ordered: 04/01/2024 [facility] Comment on above: Ordered: 04/01/2024 Thyrotropin [Units/volume] in Serum or Plasma TSH Lab Routine PCOS (polycystic ovarian syndrome) Ordered: 04/01/2024 [facility] Comment on above: Ordered: 04/01/2024 Thyroxine (T4) free [Mass/volume] in Serum or Plasma T4, free Lab Routine PCOS (polycystic ovarian syndrome) Ordered: 04/01/2024 [facility] Comment on above: Ordered: 04/01/2024 Immunizations Immunization Date Immunization Notes Care Provider John ovalle 03-26-2022 influenza virus vacc ine, unspecified formulation Sage Escudero DO Work Phone: [facility] Payers Date Payer Category Payer Self-pay 2022 [facility] BCBS [id number] 1980 Unknown [id number] .593 1980 Unknown [id number] [id number] .593 1980 Unknown [id number] [id number] .593 1980 Unknown [id number] [id number] .593 1980 Unknown [id number] [id number] .593 1980 Unknown [id number] [id number] .1259 1980 Unknown [id number] 2.16.840.1.399492.3.579.2 .1259 1980 Unknown [id number] 2.16.840.1.784427.3.579.2 .1259 1980 Unknown [id number] 2.16.840.1.442180.3.579.2 .1259 1959 Unknown [id number] 1959 Unknown [id number] Unknown Regular Auto/Medical . [id number] Unknown [facility] [id number] Social History Date Type Detail Facility Unknown if ever smoked [employer] Other Start: 03-24-2023 End: 05-27-2023 Sex Assigned At [facility] [employer] Other Start: 1980 Sex Assigned At Female [facility] Start: 03-24-2023 Tobacco smoking stat [facility] Never smoked tobacco [facility] Start: 07-16-2023 End: 05-11-2024 Alcoholic beverage intake Current drinker of alcohol (finding) [facility] Start: 03-24-2023 End: 05-27-2023 History of Social function [facility] Start: 03-24-2023 Alcohol Comment less than yamileth hly , Caffeine intake: 1-2 cups per day coffee, soda/pop [facility] Start: 1980 Sex assigned at Not on file [facility] History of Present illness Narrative 05-11-2024 Sage Escudero DO - 05/11/2024 2:50 PM EST Note Date & Type Note Facility 05-11-2024 History of Presen t illness Narrative Reason for Appointment: Patient ID: Nicolasa Colby is a 44 y.o. female who presents for Discuss test results Patient presents today for Acute Visit. Current Medications: has a current medication list which includes the following prescription(s): cetirizine and mometasone. Medical History: Active Ambulatory Problems Diagnosis Date Noted No Active Ambulatory Problems Resolved Ambulatory Problems Diagnosis Date Noted No Resolved Ambulatory Problems Past Medical History: Diagnosis Date Abnormal Pap smear of cervix Arthritis Breast cancer screening by mammogram 05/22/2023 Family History Problem Relation Name Age of Onset Rheum arthritis Mother Diabetes Mother Uterine cancer Mother Stroke Mother Diabetes Maternal Grandmother Social History Tobacco Use Smoking status: Never Smokeless tobacco: Not on file Substance Use Topics Alcohol use: Yes Comment: less than monthly , Caffeine intake: 1-2 cups per day coffee, soda/pop Drug use: Never Past Surgical History: Procedure Laterality Date ENDOMETRIAL ABLATION 07/05/2023 HYSTEROSCOPY 07/05/2023 OVARIAN CYST REMOVAL Bilateral 07/05/2023 SALPINGECTOMY Bilateral 07/05/2023 No Known Allergies Review of Systems: Review of Systems All other systems reviewed and are negative. Objective Physical Exam Constitutional: Appearance: Normal appearance. She is well-developed. Cardiovascular: Rate and Rhythm: Normal rate and [...] nursing note reviewed. Exam conducted with a supervisor shuttle fitting present. Vitals: Estimated body mass index is 31.91 kg/m as calculated from the following: Height as of 03/26/23: 5' 3 . Weight as of this encounter: 180 lb 1.9 oz. BP: 120/70 No LMP recorded. Patient has had an ablation. Assessment/Plan Encounter Diagnosis: ICD-10-CM 1. Hot flashes R23.2 2. Tiredness R53.83 3. PCOS (polycystic ovarian syndrome) E28.2 Reviewed labs and ultrasound, pt desires conservative mgmt. Pt to rto for yearly exam Documented by Sage Escudero DO on behalf of: Sage Escudero DO documented in this encounter [facility] History of Present illness Narrative 04-01-2024 Le Dawson LPN - 04/01/2024 3:00 PM EDT [...] nursing note reviewed. Exam conducted with a supervisor shuttle fitting present. Vitals: Estimated body mass index is [...] Sage Escudero DO documented in this encounter [facility] Evaluation note 04-01-2023 Note Date [...] lozenges for comfort, push fluids and rest. [employer] Other Evaluation note Note Date & Type Note Facility Evaluation note No assessment information [facility] Work Phone: Evaluation note Note Date & Type Note Facility Evaluation note Diagnosis Well woman exam with routine gynecological exam Routine gynecological examination Breast cancer screening by mammogram Hot flashes Tiredness Other malaise and fatigue PCOS (polycystic ovarian syndrome) Polycystic ovaries Abnormal uterine bleeding (AUB) documented in this encounter [facility] Evaluation note Note Date & Type Note Facility Evaluation note Diagnosis Hot flashes Tiredness Other malaise and fatigue PCOS (polycystic ovarian syndrome) Polycystic ovaries documented in this encounter [facility] Summary Purpose Family History No Family History Records FoundNo Family History Records FoundNo Family History Records Found Advance Directives No Advanced Directives Records FoundNo Advanced Directives Records FoundNo Advanced Directives Records Found Additional Source Comments INFORMATION SOURCE (unrecogn ized section and content) DATE CREATED AUTHOR 10/12/2022 [facility] DATE CREATED AUTHOR AUTHOR'S ORGANIZ ATION 07/30/2023 [facility] DATE CREATED AUTHOR AUTHOR'S ORGANIZ ATION 05/13/2024 [facility] EPIC REASON FOR VISIT (unrecogniz ed section and content) Reason Comments Well Women Visit Reason Comments Discuss test results Care Teams (unrecognized sec tion and content) Team Status: Inactive Member Role Status Dates Sage Escudero Attending Provider Active Start: Cameron doan 2023 End: July 05, 2023 Property Preservation Specialist Relationship Specialty Start Date End Date Jenny Leone MD [address] [place] [address] PCP - General Family Medicine 03/26/23 Property Preservation Specialist Relationship Specialty Start Date End Date Jenny Leone MD [address] [place] [address] PCP - General Family Medicine 03/26/23 Property Preservation Specialist Relationship Specialty Start Date End Date Jenny Leone MD [address] [place] [address] PCP - General Family Medicine 03/26/23 Property Preservation Specialist Relationship Specialty Start Date End Date Jenny Leone MD [address] [place] [address] PCP - General Family Medicine 03/26/23 Goals [...] BE BASED ON THE PRIMARY CLINICAL RECORDS. [employer] provides no warranty or guarantee of the accuracy or completeness of information in this document.
== END 2024-05-25 13:13 | disposition home or self-care (01) ==
LOC: MAMMO 13:12
PROVIDERS: PCP Family Medicine; Visit Provider Obstetrics & Gynecology
DX: Z12.31 Encounter for screening mammogram for malignant neoplasm of breast (principal); Z80.41 Family history of malignant neoplasm of ovary; Z80.8 Family history of malignant neoplasm of other organs or systems
CPT/HCPCS: 77063; 77067

== ENCOUNTER 2025-03-11 06:35 | Outpatient (OUT) | payer BC, SELFPAY ==
--- OUTSIDE RECORDS SUMMARY | 2024-05-11 15:47 | XMS_ITS ---
Author Name Auto Generated Organization OHIP Care Team Providers Care Trade Mark Examiner Name Role Phone SAGE MARION Attending Unavailable SAGE MARION Attending Unavailable PROBLEMS No Problem Records Found PROCEDURES No Procedure Records Found RESULTS No Result Records Found ALLERGIES No Allergies Records Found ENCOUNTERS ADMIT/DISCHARGE ACCOUNT NUMBER ADMITTING ENCOUNTER CLASS LOCATION SOURCE 05/11/2024/ 4 [id number] Ambulatory [facility] 04/01/2024/ 4 [id number] Ambulatory Building[facility] PAYERS ENCOUNTER GUARANTOR PAYER SUBSCRIBER SOURCE 05/11/2024 GIANNIArti NOLASCOOB: [place] [address]Gfs: (HP) Primary Insurance:[facility] licy Number: [id number] ctive Date:2022-06-10 GIANNIArti NOLASCOOB: [id number] [place] [address] [facility] 04/01/2024 GIANNIArti NOLASCOOB: [place] [address]Fyb: (HP) Primary Insurance:[facility] licy Number: [id number] ctive Date:2022-06-10 GIANNIArti NOLASCOOB: [id number] [place] [address] [facility]
[2025-03-11 06:53] LABS: Glucose Urine UA NEGATIVE (NEGATIVE)
[2025-03-11 06:55] LABS: Hematocrit 36.1 % (36.0-48.0); Hemoglobin 12.3 g/dL (12.0-16.0); Immature Granulocytes Abs Auto 0.06 10^3/uL (0.00-0.03); Immature Granulocytes Pct Auto 0.6 % (0.0-0.5); Lymphocytes Absolute Auto 2.4 10^3/uL (1.2-3.8); Mean Corpuscular HGB Conc 34.1 g/dL (29.9-35.2); Mean Corpuscular Hemoglobin 31.0 pg (26.7-34.0); Mean Corpuscular Volume 90.9 fL (81.0-99.0); Platelet Count 291 10^3/uL (150-450); Red Blood Count 3.97 10^6/uL (4.20-5.40); White Blood Count 9.4 10^3/uL (4.0-11.0)
[2025-03-11 07:00] LABS: Cast Seen? NONE SEEN #/LPF (NONE SEEN); Crystals Seen? None Seen #/HPF (None Seen); Urine Culture Indicated ALREADY ORDERED
[2025-03-11 09:05] LABS: Alanine Aminotransferase 30 U/L (14-59); Albumin Globulin Ratio 1.0; Albumin Level 3.6 g/dL (3.4-5.0); Alkaline Phosphatase 91 U/L (46-116); Anion Gap 10.4; Aspartate Amino Transferase 18 U/L (15-37); Blood Urea Nitrogen 14.0 mg/dL (7.0-18.0); Calcium 8.3 mg/dL (8.5-10.1); Carbon Dioxide 28.4 mmol/L (21.0-32.0); Chloride 106 mmol/L (98-107); Cholesterol 187 mg/dL (<=200); Estimated GFR (African America >60 (>=60 mL/min/1.73m^2); Estimated GFR (Non-African Ame >60 (>=60 mL/min/1.73m^2); Free T3 2.59 pg/mL (2.18-3.98); Globulin 3.7 g/dL; Glucose 87 mg/dL (74-106); HDL Cholesterol 55 mg/dL (40-60); Potassium 3.8 mmol/L (3.5-5.1); Sodium 141 mmol/L (136-145); Thyroid Stimulating Hormone 1.848 uIU/mL (0.358-3.740); Total Protein 7.3 g/dL (6.4-8.2); Triglycerides 102 mg/dL (<=150); VLDL CHOLESTEROL 20.4 mg/dL
[2025-03-11 09:23] LABS: Iron 48.0 ug/dL (50.0-170.0)
== END 2025-03-11 06:36 | disposition home or self-care (01) ==
LOC: LAB 06:35
PROVIDERS: PCP Family Medicine; Visit Provider Family Medicine
DX: Z00.00 Encounter for general adult medical examination without abnormal findings (principal); R82.90 Unspecified abnormal findings in urine
CPT/HCPCS: 36415; 80053; 80061; 81001; 83036; 83525; 83540; 84436; 84443; 84481; 85025; 87086; 87088

== ENCOUNTER 2025-04-05 19:28 | Outpatient (REF) | payer BC, SELFPAY ==
--- OUTSIDE RECORDS SUMMARY | 2024-08-10 11:30 | XMS_ITS ---
Author Organization [facility] in [place] Address [address] [place] [address] Care Team Providers Care Lacquer Spray Booth Operator Name Role Phone Ermias Leone Primary Care Provider [phone] REASON FOR VISIT coughing Encounters Encounter Location Date Provider Diagnosis [address] [address] 08/10/2024 Ermias Leone Plan Of Treatment No Information Progress Notes * Columba RICHTER LDOB:1980 (45 yo F)Acc No.[id number]:08/10/2024 UNLOCKED PROGRESS NOTE Progress Note Patient: Columba WILSON :?Brayden Leone (TTC), MDDOB:1980???Age: 44 Y???Sex:FemaleDate:08/10/2024Phone:[phone]:[address] [place], [id number] Subjective: * Chief Complaints: * 1 . Coughing. * Medical History: Objective: * Vitals: Assessment: Plan: * Treatment: * * Electronic signature of Ermias Leone MD, [id number] on 04/05/2025 at 03:57 PM EDT Sign off status: PendingVisit Status:?CANC (Cancelled) * Provider: Malathi Leone MD ([facility]C) Date: 0 08/10/2024 Generated for Printing/Faxing/eTransmitting on:?04/05/2025 03:57 PM EDT
--- OUTSIDE RECORDS SUMMARY | 2025-03-31 09:15 | XMS_ITS ---
Author Organization [facility] in [place] Address [address] [place] [address] Care Team Providers Care Women'S Health Care Nurse Practitioner Name Role Phone Ermias Leone Primary Care Provider [phone] Allergies No Known Allergies REASON FOR VISIT strep Medications Medication SIG (Take, Route, Frequency, Duration) Notes Start Date End Date Status Amoxicillin-Pot Clavulanate 875-125 MG 1 tablet Orally every 12 hrs; Duration: 10 days 5ActiveVentolin HFA 108 (90 Base) MCG/ACT2 puff as needed Inhalation every 4 hrs; Duration: [id number] Social History Tobacco Use: Social History Observation Description Date Details (start date - stop date) Never Smoker NA - NA Tobacco Use/Smoking Question Answer Notes Patient is a nonsmoker AUDIT-C (Standard) Question Answer Notes Did you have a drink containing alcohol in the p ast year? Yes How often did you have six or more drinks on one occasion in the past year?Never (0 point)How many drinks did you have on a typical day when you were drinking in the past year?1 or 2 drinks (0 point)How often did you have a drink containing alcohol in the past year?Monthly or less (1 point)Bnmgvb8LwnefkbfrlqirrVulufwsm Vital Signs Blood pressure systolic 114 mm Hg 03/31/20 25 Blood pressure diastolic 72 mm Hg 025 Height 63 in 03/31/2025 Weight 186 lbs 03/31/2025 BMI 32.94 kg/m2 03/31/2025 Encounters Encounter Location Date Provider Diagnosis [facility] [address] [place] [address] 03/31/2025 Ermias Leone Strep throat J02.0 Assessments Encounter Date Diagnosis (ICD Code) Assessment Notes Treatment Notes Treatment Clinical Notes Section Notes 03/31/2025 Strep throat (ICD-10 - J02.0) You have been prescribed antibiotics for strep throat. Antibiotics may bother your stomach, so try taking them with a light meal (unless instructed otherwise by your pharmacist). It is important to take them until they are finished. You can use bwim-lcg-zmtjfbc acetaminophen or ibuprofen if needed for pain. You can also use throat lozenges or gargle warm water to help with the sore throat. You are contagious until you have been on antibiotics for 24 hours. You should be extra vigilant about hand washing or using hand planning intern gel. You should follow up with your Primary Care Physician or return to clinic if not improving in the next 3-5 days. Plan Of Treatment Medication Medication Name Sig Start Date Stop Date Notes Amoxicillin-Pot Clavulanate 875-125 MG 1 tablet Orally every 12 hrs; Duration: 10 days 03/31/2025 Treatment Notes Assessment Notes Strep throat You have been prescr ibed antibiotics for strep throat. Antibiotics may bother your stomach, so try taking them with a light meal (unless instructed otherwise by your pharmacist). It is important to take them until they are finished. You can use oduv-wzu-yyxnhzf acetaminophen or ibuprofen if needed for pain. You can also use throat lozenges or gargle warm water to help with the sore throat. You are contagious until you have been on antibiotics for 24 hours. You should be extra vigilant about hand washing or using hand planning intern gel. You should follow up with your Primary Care Physician or return to clinic if not improving in the next 3-5 days. Next Appt Details Follow Up: 3-5 days if no im provement, Reason: Progress Notes * ROBER Columba LDOB:1980 (45 yo F)Acc No.[id number]:03/31/2025 Progress Note Patient: Columba WILSON :?Brayden Leone ([facility]), MDDOB:1980???Age: 45 Y???Sex:FemaleDate:03/31/2025Phone:[phone]:[address], [place], [id number] In:01:06 PM ESTCheck Out:01:43 PM EST Subjective: * Chief Complaints: * S trep * HPI: ???Sore Throat/Strep Throat:?The symptoms have been present for?2-3 days.?The symptoms are?moderate.?The patient?has been exposed to strep.?Symptomatic treatment has included?OTC Medication.?Associated symptoms include?fever, chills, headache.? Possible Strep - some exposure. * ROS: ???Skin:?Rash?denies.?ENT:?Comments?See HPI for details.?Cardiovascular:?Edema?denies.?Palpitations?denies.?Respiratory:?Chest pain?denies.?Cough?denies.?Gastrointestinal:?Abdominal pain?denies.?Nausea?denies.?Vomiting?denies.? * Active Problem List J30.2 Allergic rhinitis, s easonal Modified On:10/19/2022U Status:ncwaqjgsoH41.3Over weight Modified On:10/19/2022/U Status:yrluolaqvY21.00Well adult Modified On:10/19/2022/U Status:nujobuqlgS11.90Acute sinusitis Modified On:10/19/2022/U Status:avyxcwwytN28.2Palpitations Modified On:10/19/2022U Status:gxbzauhatT91.0Streptococcal pharyngitis Modified On:06/05/2023/U Status:tebsqzmmhH36.9Acute bronchiolitis Modified On:04/22/2023/U Status:confirmed * Medical History: * Surgical History: D enies Past Surgical History * Hospitalization/Major Diagno stic Procedure: D enies Past Hospitalization * Family History: F ather: 80 yrs, diagnosed with Heart Disease. M other: alive. B rother(s): alive. S on(s): alive. 2 brother(s) - healthy. 1 son(s) . . * Social History: ???Tobacco Use:?Tobacco Use/Smoking?Patient is a?nonsmoker ???Drug/Alcohol:?AUDIT-C (Standard)?Did you have a drink containing alcohol in the past year??Yes ?How often did you have six or more drinks on one occasion in the past year??Never (0 point) ?How many drinks did you have on a typical daywhen you were drinking in the past year??1 or 2 drinks (0 point) ?How often did you have a drink containing alcohol in the past year?? Monthly or less (1 point) ?Points?1 ?Interpretation?Negative * Medications: T akingVentolin HFA(Albuterol Sulfate HFA) 108 (90 Base) MCG/ACT Aerosol Solution 2 puff as needed Inhalation every 4 hrs , Notes to Pharmacist: PRNTaking Ventolin HFA(Albuterol Sulfate HFA) 108 (90 Base) MCG/ACT Aerosol Solution 2 puff as needed Inhalation every 4 hrs , Notes to Pharmacist: PRNDiscontinuedAmoxicillin-Pot Clavulanate 875-125 MG Tablet 1 tablet Orally every 12 hrs Cetirizine HCl 10 MG Tablet 1 tablet Orally Once a day Mometasone Furoate 50 MCG/ACT Suspension 4 sprays (2 sprays in each nostril) Nasally Once a day Pyridium(Phenazopyridine HCl) 200 MG Tablet 1 tablet after meals Orally Three times a day Medication List reviewed and reconciled with the patientDiscontinued Amoxicillin-Pot Clavulanate 875-125 MG Tablet 1 tablet Orally every 12 hrs Discontinued Cetirizine HCl 10 MG Tablet 1 tablet Orally Once a day Discontinued Mometasone Furoate 50 MCG/ACT Suspension 4 sprays (2 sprays in each nostril) Nasally Once a day Discontinued Pyridium(Phenazopyridine HCl) 200 MG Tablet 1 tablet after meals Orally Three times a day Medication List reviewed and reconciled with the patient * Allergies: N .K.D.A.no[Allergies Verified] Objective: * Vitals: W t:186lbs, Ht: 63 in, BP:114/72mm Hg, BMI:32.94Index, Ht-cm: 160.02 cm, Wt-k.37 kg. * Examination: ???General Examination: ?GENERAL APPEARANCE:?in no acute distress, well developed, well nourished.?ENT:? ear and nose external appearance normal, tympanic membranes clear bilaterally, facial tenderness to palpation over sinuses.?EYES:?pupils equal, round, reactive to light and accomodations.?ORAL CAVITY:?mucosa moist? 3+ tonsillar hypertrophy -+ Exudates.?NECK:?neck supple, full range of motion, no cervical lymphadenopathy.?LUNGS:?clear to auscultation bilaterally.?CARDIO:? no murmurs, regular rate and rhythm, S1, S2 normal.?ABDOMEN:? soft, nontender , not distended, bowel sounds are present, normal.?SKIN:?no suspicious lesions, warm and dry.?EXTREMITIES:? no clubbing, cyanosis, or edema.?NEUROLOGIC:?nonfocal, motor strength normal upper and lower extremities, sensory exam intact.? Assessment: * Assessment: 1.?Strep throat - J02.0 (Primary)??? Plan: * Treatment: Start Amoxicillin-Pot Clavulanate Tablet, 875-125 MG, 1 tablet, Orally, every 12 hrs, 10 days, 20 Tablet, Refills 0.?? Notes:You have been prescribed antibiotics for strep throat. Antibiotics may bother your stomach, so try taking them with a light meal (unless instructed otherwise by your pharmacist). It is important to take them until they are finished. You can use ieeg-gkq-amgubdq acetaminophen or ibuprofen if needed for pain. You can also use throat lozenges or gargle warm water to help with the sore throat. You are contagious until you have been on antibiotics for 24 hours. You should be extra vigilant about hand washing or using hand planning intern gel. You should follow up with your Primary Care Physician or return to clinic if not improving in the next 3-5 days.?? * Procedure Codes: * Preventive Medicine: ??Screenings/Counseling:?BMI ACTION PLAN?Above Normal BMI Follow-up?Dietary management education, guidance, and counseling * Follow Up: 3 -5 days if no improvement * * Sign off status: CompletedVisit Status:?CHK (Check Out) true * Provider: Malathi Leone ([facility])MD Date: 1 Generated for Printing/Faxing/eTransmitting on:?04/05/2025 07:33 PM EDT History and Physical Notes * HPI (History of Present Illness) CategorySub-CategoryDetailNotesCategory NotesSore Throat/Strep ThroatThe symptoms have been present for2-3 daysPossible Strep - some exposureThe symptoms aremoderateThe patienthas been exposed to strepSymptomatic treatment has includedOTC MedicationAssociated symptoms includefever, chills, headache Examination CategorySub-CategoryDetailNotesCategory NotesGeneral ExaminationGENERAL APPEARANCE:in no acute distress, well developed, well nourishedENT:ear and nose external appearance normal, tympanic membranes clear bilaterally, facial tenderness topalpation over sinusesEYES:pupils equal, round, reactive to light and accomodationsNECK:neck supple, full range of motion, no cervical lymphadenopathyCARDIO:no murmurs, regular rate and rhythm, S1, S2 normalLUNGS: clear to auscultation bilaterallyABDOMEN:soft, nontender , not distended, bowel sounds are present, normalNEUROLOGIC:nonfocal, motor strength normal upper and lower extremities, sensory exam intactSKIN:no suspicious lesions, warm and dry EXTREMITIES:no clubbing, cyanosis, or edemaORAL CAVITY:mucosa moist 3+ tonsillar hypertrophy - + Exudates
--- OUTSIDE RECORDS SUMMARY | 2025-04-05 16:00 | XMS_ITS | Encounter Summary ---
Author Organization [facility] Address [address] [place] [address] Care Team Providers Care Men'S Designer Name Role Phone Brayden Leone MD Primary Care Provider [phone] Reason for Visit * ReasonCommentsWell Women Visit Encounter Details DateTypeDepartmentCare Team (Latest Contact Info)Bbsdqbqblxx78/27/2025 4:00 PM EDTOffice Visit [facility] [address] [facility] [place] [phone] Vince Escudero DO [address] [facility] [place] [address] Pelvic pain in female (Primary Dx); Well woman exam with routine gynecological exam Social History Tobacco UseTypesPacks/DayYears UsedDateSmoking Tobacco: NeverAlcohol UseStandard Drinks/WeekCommentsYes0 (1 standard drink = 0.6 oz pure alcohol)less than monthly , Caffeine intake: 1-2 cups per day coffee, soda/popCommentsNo Sex and Gender InformationValueDate RecordedSex Assigned at BirthNot on file Legal HnuTqoyas77/15/2023 6:59 PM EDTGender IdentityNot on fileSexual OrientationNot on filedocumented as of this encounter Last Filed Vital Signs Vital SignReadingTime TakenCommentsBlood Dkndcheb196/8204/05/2025 4:13 PM EDT Pulse--Temperature--Respiratory Rate--Oxygen Saturation--Inhaled Oxygen Concentration--Sgckjq77.4 kg (186 lb)04/05/2025 4:13 PM EDTHeight--Body Mass Index32.9503/26/2023 9:23 AM EDTdocumented in this encounter Plan of Treatment DateTypeDepartmentCare Team (Latest Contact Info)Wkjkhiynzep08/18/2025 2:30 PM ESTAncillary Procedure [facility] [address] [facility] [place] [address] 04/18/2026 4:00 PM ESTProcedure Visit [facility] [address] [facility] [place] [phone] Vince Escudero DO [address] [facility] [place] [address] NameTypePriorityAssociated DiagnosesOrder SchedulePap SmearPathology and CytologyRoutine Well woman exam with routine gynecological exam Ordered: 04/05/2025US Pelvis w/ TVImagingRoutine Pelvic pain in female Expected: 04/05/2025, Expires: 10/04/2025documented as of this encounter Visit Diagnoses Diagnosis Pelvic pain in female- Primary Unspecified symptom associated with female genital organs Well woman exam with routine gynecological exam Routine gynecological examination documented in this encounter Care Teams Team MemberRelationshipSpecialtyStart DateEnd Date Brayden Leone MD [address] [facility] [place] [place] [address] PCP - GeneralFamily Zgupoehf34/17/23documented as of this encounter
--- OUTSIDE RECORDS SUMMARY | 2025-04-05 19:33 | XMS_ITS | Encounter Summary ---
Author Organization [facility] Address [address] [place] [address] Care Team Providers Care Digital Marketing Manager Name Role Phone Brayden Leone MD Primary Care Provider [phone] Encounter Details DateTypeDepartmentCare Team (Latest Contact Info)Gmmkpxpytvs28/27/2025amboo flowsheet FAZAL BROWN [address] [place] [address] Vince Escudero DO [address] [place] [address] Nena [place], [facility] Social History Tobacco UseTypesPacks/DayYears UsedDateSmoking Tobacco: NeverAlcohol UseStandard Drinks/WeekCommentsYes0 (1 standard drink = 0.6 oz pure alcohol)less than monthly , Caffeine intake: 1-2 cups per day coffee, soda/popCommentsNo Sex and Gender InformationValueDate RecordedSex Assigned at BirthNot on file Legal InxYquism48/15/2023 6:59 PM EDTGender IdentityNot on fileSexual OrientationNot on filedocumented as of this encounter Plan of Treatment DateTypeDepartmentCare Team (Latest Contact Info)Kisdghispco35/18/2025 2:30 PM ESTAncillary Procedure NOM[facility] [address] [place] [address] [place] [address] 04/18/2026 4:00 PM ESTProcedure Visit NOMKunal BR[facility] [address] [place] [address] [place] [address] Vince Escudero DO [address] [place] [address] [place] [address] documented as of this encounter Visit Diagnoses Not on filedocumented in this encounter Care Teams Team MemberRelationshipSpecialtyStart DateEnd Date Brayden Leone MD [address] [facility] [place] [address] PCP - GeneralFamily Vecmrdyt67/17/23documented as of this encounter
--- OUTSIDE RECORDS SUMMARY | 2025-04-05 19:33 | XMS_ITS | Patient Health Record ---
Author Organization [facility] [place] Address [address] [place] [address] Care Team Providers Care Percussion Instructor Name Role Phone Ermias Leone Primary Care Provider [phone] Allergies No Known Allergies Results Component Value Reference Range Notes UA DIP NONAUTO WO MICRO (810 02) - IN OFFICE Reviewed date:03/12/2025 11:58:27 AM Interpretation: Performing Lab: Notes/Report: COLOR yellow CLARITYclearGLUCOSEnBILIRUBINnKETONEnSPECIFIC GRAVITY1.067GMZLRnPW2TDTXZWYn UROBILINOGENnNITRITEnLEUKOCYTE ESTERASEtraceUA DIP NONAUTO WO MICRO (61500) - IN OFFICE Reviewed date:03/12/2025 11:58:27 AM Interpretation: Performing Lab: Notes/Report: AHKLQpqsggEOZIGIMtourwvQIZPHBMlJGESXZIDFoJZMJWX2HXDMPMSG GRAVITY1.690KDIQG4-43ZM 7.6PNBOLUM92IDJVRIGQXSXFtFUYGEPLmVHSTONAPQ ESTERASEnUS pelvis w/ transvaginal Reviewed date:04/26/2024 02:18:36 PM Interpretation: Performing Lab: Notes/Report: Source Facility: [place] [address] [place] [address] Ultrasound Report Signed Patient: NICOLASA RICHTER MR#: [id number] : 1980 Acct:[id number] Age/Sex: 44 / F ADM Date: 04/22/24 Loc: [facility] Attending Dr: Sage Escudero D.O. Ordering Physician: Sage Escudero D.O. Date of Service: 04/22/24 Procedure(s): US pelvis w/ transvaginal Accession Number(s): [id number] cc: Sage Escudero D.O.; Brayden Leone M.D. [place] [address] Patient Name: NICOLASA RICHTER MRN: [facility]:[id number] date: 1980 Sex: F Assigned Patient Location: [facility] Current Patient Location: Accession/Order Number: [id number] Exam Date: 04/22/2024 10:04 Report Date: 04/23/2024 04:56 At the request of: SAGE ESCUDERO Procedure: US pelvis w/ transvaginal EXAMINATION: US pelvis w/ transvaginal HISTORY: POLYCYSTIC OVARIAN SYNDROME COMPARISON: Ultrasound pelvis 03/28/2023 TECHNIQUE: Transabdominal and/or transvaginal sonographic examination was performed as indicated by examination type. FINDINGS: UTERUS: Normal size and appearance. Uterus size: 8.1 x 4.5 x 5.8 cm ENDOMETRIUM: Normal homogeneous appearance. Endometrial thickness: 7 mm RIGHT OVARY: Normal size and appearance. Duplex Doppler demonstrates normal waveform and flow; resistive index 0.7. Ovary size: 2.9 x 1.6 x 1.7 cm LEFT OVARY: Contains a 2.7 cm benign-appearing cyst. Duplex Doppler demonstrates normal waveform and flow; resistive index 0.6. Ovary size: 3.5 x 2.1 x 3.0 cm CUL-DE-SAC: Unremarkable. No significant free fluid. BLADDER: Unremarkable. OTHER: None. US/US pelvis w/ transvaginal IMPRESSION: 1. No ultrasound evidence of polycystic ovarian syndrome. 2. Benign-appearing 2.7 cm cyst within left ovary. No additional follow-up recommended at this time. Electronically authenticated by: HUMBERTO WAHL Date: 04/23/2024 04:56 Dictated By: Humberto Wahl M.D. Signed By: 04/23/24 0458 DD/ 0456 TD/TT: Shut Off Worker:CUONG tomosynthesis screening BI Reviewed date:05/25/2024 02:26:59 PM Interpretation: Performing Lab: Notes/Report: Source Facility: [facility]-[address] [place] [address] [place] [address] Mammography Report Signed Patient: NICOLASA RICHTER MR#: [id number] : 1980 Acct:[id number] Age/Sex: 44 / F ADM Date: 05/25/24 Loc: M[facility]MO Attending Dr: Sage Escudero D.O. Ordering Physician: Sage Escudero D.O. Results: Date of Service: 05/25/24 Follow Up: Procedure(s): MM tomosynthesis screening BI Accession Number(s): [id number] cc: Sage Escudero D.O.; Brayden Leone M.D. Patient Name: NICOLASA RICHTER MR#: [id number] : 1980 Exam Date: 05/25/2024 Ordering Doctor: DR Sage Escudero . RADIOLOGY REPORT PROCEDURE: MM TOMOSYNTHESIS SCREENING BI COMPARISON: MM TOMOSYNTHESIS SCREENING BI, 05/21/2023. MG MAMM SCREEN 3D DAYANNA CAD, 05/09/2022. INDICATIONS: Screening for malignant neoplasm Calculator Name NCI Breast Cancer Risk Assessment Tool 5 Year Breast Cancer Risk 0.70% Lifetime Breast Cancer Risk 9.40% Personal Breast Cancer No Personal Ovarian Cancer No Treatments None Family Cancers Aunt-maternal with ovarian cancer at age 58; Mother with uterine cancer at age 34; Aunt-paternal with liver cancer at age 50. LOCATION: [facility] BREAST COMPOSITION: There are scattered areas of fibroglandular density. FINDINGS: DIAGNOSTIC CATEGORY 1--NEGATIVE. NO CHANGE FROM COMPARISON ASSESSMENT. Scattered benign-appearing lymph nodes are present. RIGHT BREAST: No significant suspicious finding. LEFT BREAST: No significant suspicious finding. RECOMMENDATIONS: ROUTINE MAMMOGRAM AND CLINICAL EVALUATION IN 12 MONTHS. PLEASE NOTE: A NORMAL MAMMOGRAM DOES NOT EXCLUDE THE POSSIBILITY OF BREAST CANCER. A CLINICALLY SUSPICIOUS PALPABLE LUMP SHOULD BE BIOPSIED. Dictated by: Kodi Pantoja MD on 05/25/2024 at 14:13 Approved by: Kodi Pantoja MD on 05/25/2024 at 14:14 Dictated By: Kodi Pantoja M.D. Signed By: 05/25/24 1415 DD/ 1414 TD/TT: Shut Off Worker:CBC AUTO DIFF Reviewed date:03/11/2025 12:45:26 PM Interpretation: Performing Lab: Notes/Report: [facility] ,White Blood Count9.44.0-11.0 10 3/uLRed Blood Count3.974.20-5.40 10 6/uL Azehptnovu70.312.0-16.0 g/vUNkzpaoruwv52.136.0-48.0 %Mean Corpuscular Yrxtit99.9 81.0-99.0 fLMean Corpuscular Kcuqwqpnhg61.026.7-34.0 pgMean Corpuscular HGB Conc 34.129.9-35.2 g/dLRed Cell Distribution Width12.511.0-15.0 %Platelet Lbdkj009 150-450 10 3/uLMean Platelet Volume9.89.5-13.5 fLNeutrophils Percent Auto65.9 43.0-75.0 %Lymphocytes Percent Auto25.820.5-60.0 %Monocytes Percent Auto5.71.7- 12.0 %Eosinophils Percent Auto1.60.9-7.0 %Basophils Percent Auto0.40.2-2.0 % Immature Granulocytes Pct Auto0.60.0-0.5 %Neutrophils Absolute Auto6.21.4-6.5 10 3/uLLymphocytes Absolute Auto2.41.2-3.8 10 3/uLMonocytes Absolute Auto0.50.3-0.8 10 3/uLEosinophils Absolute Auto0.20.0-0.7 10 3/uLBasophils Absolute Auto0.00.0- 0.1 10 3/uLImmature Granulocytes Abs Auto0.060.00-0.03 10 3/uLPerforming Lab:see noteML - [facility] LBFREE T3 Reviewed date:03/11/2025 12:45:26 PM Interpretation: Performing Lab: Notes/Report: [facility] ,Free T32.592.18-3.98 pg/mLPerforming Lab:see noteML - [facility] LB GLYCOHEMOGLOBIN A1C Reviewed date:03/11/2025 12:45:26 PM Interpretation: Performing Lab: Notes/Report: [facility] ,Glycohemoglobin A1C5.24.5-6.2 % ADA RECOMMENDED LIMIT 4.0 - 6.0 ADA THERAPEUTIC TARGET < 7.0 ACTION SUGGESTED > 7.0 Estimated Average Qibjwla075Vhcudsdxob Lab:[facility] LB INSULIN Reviewed date:03/12/2025 11:58:27 AM Interpretation: Performing Lab: Notes/Report: [facility] ,Qwgbqwk95.42.6-24.9 uIU/mL Performed at: [facility] Lab[address] [id number] Sequins Stringer: Sukhjinder Weinberg PhD, Phone: [phone] Performing Lab:see [facility]MULT[facility] LBIRON Reviewed date:03/11/2025 12:45:26 PM Interpretation: Performing Lab: Notes/Report: [facility] ,Iron48.050.0-170.0 ug/dLPerforming Lab:see [facility]Select [facility] LB LIPID PROFILE Reviewed date:03/11/2025 12:45:26 PM Interpretation: Performing Lab: Notes/Report: [facility] ,Gnkuzycmbdfro164<=150 mg/xBVttryifzjmf253<=200 mg/dLHDL Htpjndjjxid1490-36 mg/dL > or =60 mg/dl - LOW CARDIOVASCULAR RISK <40 mg/dl - HIGH CARDIOVASCULAR RISK LDL Cholesterol Rmppieqzza534.6 <100 mg/dl OPTIMAL 100-129 mg/dl NEAR OR ABOVE OPTIMAL 130-159 mg/dl BORDERLINE HIGH 160-189 mg/dl HIGH >190 mg/dl VERY HIGH VLDL JNXFHLVHHIL29.4Chol HDL Ratio3.4 3.3 - 4.4 LOW RISK 4.4 - 7.1 AVERAGE RISK 7.1 - 11.0 MODERATE RISK >11.0 HIGH RISK Performing Lab:see [facility] LBPROF 14(COMP METB) Reviewed date:03/11/2025 12:45:26 PM Interpretation: Performing Lab: Notes/Report: [facility] ,Vzosnj185610-580 mmol/LPotassium3.83.5-5.1 mmol/YRcxmxnif71865-665 mmol/LCarbon Ihijvhs92.421.0-32.0 mmol/LAnion Gap10.0Wdqteuu7534-574 mg/dLBlood Urea Nitrogen 14.07.0-18.0 mg/dLCreatinine0.500.55-1.02 mg/dLEstimated GFR ( Sandra>60 >=60 mL/min/1.73m 2Estimated GFR (Non- Gill>60>=60 mL/min/1.73m 2BUN Creatinine Ratio28.7Jojtdsj0.38.5-10.1 mg/dLBilirubin Total0.30.2-1.0 mg/dL Aspartate Amino Joczuowgafk7390-94 U/LAlanine Jbjgextypqelpckm9706-22 U/L Alkaline Khtxzgvnofe8190-621 U/LTotal Protein7.36.4-8.2 g/dLAlbumin Level3.63.4- 5.0 g/dLGlobulin3.7Albumin Globulin Ratio1.0Performing Lab:see noteML - [facility] LBT4 Reviewed date:03/11/2025 12:45:26 PM Interpretation: Performing Lab: Notes/Report: [facility] ,T4 Thyroxine7.504.80-13.90 ug/dLPerforming Lab:see noteML - [facility] LBTSH Reviewed date:03/11/2025 12:45:26 PM Interpretation: Performing Lab: Notes/Report: [facility] ,Thyroid Stimulating Hormone1.8480.358-3.740 uIU/mLPerforming Lab:see noteML - [facility] LBUA RANDOM W or MICROSCOPIC Reviewed date:03/11/2025 12:45:27 PM Interpretation: Performing Lab: Notes/Report: [facility] ,Color UrineYELLOWYELLOWClarity UrineCLEARCLEARSpecific Merino Urine1.025 1.005-1.025pH Urine6.05.0-9.0Protein UrineNEGATIVENEG/TRACE mg/dLGlucose Urine UANEGATIVENEGATIVE mg/dLBilirubin UrineNEGATIVENEGATIVEKetones UrineNEGATIVE NEGATIVE mg/dLBlood UrineTRACE-INEGATIVENitrite UrineNEGATIVENEGATIVE Urobilinogen Urine0.20.2-1.0 EU/dLLeukocyte Esterase UrineNEGATIVENEGATIVEWBC Urine0-2NONE SEEN #/HPFRBC Urine0-20-2 #/HPFBacteria UrineTRACENONE SEEN #/HPF Mucus UrineSMALLNONE SEENSquamous Epithelial Cell UrineFEWNONE/RARE #/LPF Crystals Seen?None SeenNone Seen #/HPFCast Seen?NONE SEENNONE SEEN #/LPFUrine Culture IndicatedALREADY ORDEREDPerforming Lab:see [facility] LBUrine Culture - [facility] Reviewed date:03/15/2025 12:56:47 PM Interpretation: Performing Lab: Notes/Report: [facility] ,Urine Culture - FRMCSee Below For Report Urine Culture - [facility] Organism not routinely tested for Susceptibilities O:LACTSP Isolated Urine Culture - [facility] [place] Count Urine Culture - [facility] Urine Culture - [facility] Organism not routinely tested for Susceptibilities O:LACTSP Isolated Urine Culture - [facility] [place] Count Urine [facility] - [facility]CTesting [facility] Urine Culture - [facility] Organism not routinely tested for Susceptibilities O:LACTSP Isolated Urine Culture - [facility] [place] Count Urine Culture - [id number] [place] [address] Urine Culture - [facility] Organism not routinely tested for Susceptibilities O:LACTSP Isolated Urine Culture - [facility] [place] Count Urine Culture - FRMCSee Below For Report Urine Culture - [facility] Organism not routinely tested for Susceptibilities O:LACTSP Isolated Urine Culture - [facility] [place] Count Urine Culture - FRMCSee Below For Report Urine Culture - [facility] Organism not routinely tested for Susceptibilities O:LACTSP Isolated Urine Culture - [facility] [place] Count Urine Culture - [facility]>100,000 Urine Culture - [facility] Organism not routinely tested for Susceptibilities O:LACTSP Isolated Urine Culture - [facility] [place] Count Urine Culture - FRMCOrganism Comments Urine Culture - [facility] Organism not routinely tested for Susceptibilities O:LACTSP Isolated Urine Culture - [facility] [place] Count Urine Culture - FRMCLACTOBACILLUS GASSERI Urine Culture - [facility] Organism not routinely tested for Susceptibilities O:LACTSP Isolated Urine Culture - [facility] Rev[place] Count Performing Lab:see [facility] LB Reason For Referral No Information Medications Medication SIG (Take, Route, Frequency, Duration) Notes Start Date End Date Status Amoxicillin-Pot Clavulanate 875-125 MG 1 tablet Orally every 12 hrs; Duration: 10 days 5ActiveVentolin HFA 108 (90 Base) MCG/ACT2 puff as needed Inhalation every 4 hrs; Duration: 17ZAV6806/22/2022ctive Social History Tobacco Use: Social History Observation [...] in the past year?Monthly or less (1 point)Ymaxzt5PvagnhwsvweyczGakvemzq Problems Problem Type SNOMED Code ICD Code Onset Dates Problem Status W/U Status Risk Notes Problem Streptococcal pharyngitis (03954855) Stre ptococcal pharyngitis (J02.0) ActiveconfirmedProblemPalpitations (81844526)Palpitations (R00.2)Activeconfirmed ProblemAcute sinusitis (32131040)Acute sinusitis (J01.90)ActiveconfirmedProblem Well adult (843913516)Well adult (Z00.00)ActiveconfirmedProblemOverweight (933030187)Over weight (E66.3)ActiveconfirmedProblemSeasonal allergic rhinitis (519730186)Allergic rhinitis, seasonal (J30.2)ActiveconfirmedProblemAcute bronchiolitis (4287078)Acute bronchiolitis (J21.9)Activeconfirmed Vital Signs Blood pressure diastolic 72 mm Hg 03/31/2025 Tuaenr24 in03/31/2025lood pressure hohuyyua270 mm Hg03/31/20257155Bfvgtx518 lbs 03/31/2025BMI32.94 kg/m203/31/2025 Encounters Encounter Location Date Provider Diagnosis [facility] [address] [place] [address] 08/03/2024 Ermias Leone Acute bronchiolitis J21.9 [facility] [address] [place] [address] 03/11/2025 Ermias Leone [place] [address] 03/15/2025Doug HoyUrine malodor R82.[address] [address]/01/2025Doug HoyAcute non-recurrent sinusitis, unspecified location J01.90 and Nasal congestion R09.[address] [address]/09/2024Doug HoyUrine malodor R82.90 ; UTI (urinary tract infection), uncomplicated N39.0 ; Dysuria R30.0 and Well adult Z00.[address] [address]/Doug HoyStrep throat J02.[address] [address]/oug Hoy Acute non-recurrent sinusitis, unspecified location J01.90 and Nasal congestion R09.[address] [address]/Doug HoyUrinary frequency R35.0 ; UTI (urinary tract infection), uncomplicated N39.0 and Dysuria R30.0 Assessments Encounter Date Diagnosis (ICD Code) Assessment Notes Treatment Notes Treatment Clinical Notes Section Notes 05/29/2024 Acute non-recurrent sinusitis, unspecified location (ICD-10 - J01.90) Rest and drink more liquids, especially water. You may use a humidifier or vaporizer to help keep the drainage moist. Yjep-asz-kbwezff Nasal Saline may help the stuffy and runny nose. Use Ibuprofen and or Tylenol as needed for fever, chills, body aches or pain. Children 5 years old should not be given qgsb-aya-ltnbqjt cough and cold medications such as guaifenesin and dextromethorphan. If you're over age 5, you may try jgjs-ubb-fvkbtnc cold medications such as guaifenesin and dextromethorphan, or multi-symptom cold reliever such as Dayquil to help reduce the symptoms. Antibiotics have been pre scribed. You should take these until completed and follow the directions. Antibiotics can sometimescause upset stomach, and in rare cases, serious allergic reactions or serious gastrointestinal problems. If you start having severe abdominal pain, severe vomiting, or bloody diarrhea, you should be r eevaluated by your physician or urgent care immediately. Follow up with your Primary Care Provider or return to clinic if symptoms do not improve within 3-5 days06/17/2024ute non-recurrent sinusitis, unspecified location (ICD-10 - J01.90)Rest and drink more liquids, especially water. You may use a humidifier or vaporizer to help keep the drainage moist. Jmbj-hza-plouqxr Nasal Saline may help the stuffy and runny nose. Use Ibuprofen and or Tylenol as needed for fever, chills, body aches or pain. Children 5 years old should not be given mnrx-qnf-vxdoqyo cough and cold medications such as guaifenesin and dextromethorphan. If you're over age 5, you may try krwo-qnk-rrwtjse cold medications such as guaifenesin and dextromethorphan, or multi-symptom cold reliever such as Dayquil to help reduce the symptoms. Antibiotics have been pre scribed. You should take these until completed and follow the directions. Antibiotics can sometimescause upset stomach, and in rare cases, serious allergic reactions or serious gastrointestinal problems. If you start having severe abdominal pain, severe vomiting, or bloody diarrhea, you should be r eevaluated by your physician or urgent care immediately. Follow up with your Primary Care Provider or return to clinic if symptoms do not improve within 3-5 days02/11/2025Urine malodor (ICD-10 - R82.90)03/31/2025Strep throat (ICD-10 - J02.0)You have been prescribed antibiotics for strep throat. Antibiotics may bother your stomach, so try taking them with a light meal (unless instructed otherwise by your pharmacist). It is important to take them until they are finished. You can use zfzh-tya-xpvwemc acetaminophen or ibuprofen if needed for pain. You can also use throat lozenges or gargle warm water to help with the sore throat. You are contagious until you have been on antibiotics for 24 hours. You should be extra vigilant about hand washing or using hand time study technologist gel. You should follow up with your Primary Care Physician or return to clinic if not improving in the next 3-5 days.08/03/2024ute bronchiolitis (ICD-10 - J21.9) 03/15/2025Urine malodor (ICD-10 - R82.90)11/04/2024Urinary frequency (ICD-10 - R35.0)11/04/2024UTI (urinary tract infection), uncomplicated (ICD-10 - N39.0) Drink plenty of water. Avoid drinks like coffee, alcohol and soft frinks, as these can irritate your bladder and aggravate your frequent or urgent need to urinate. Apply a warm heating pad to your abdomen to minimize bladder pressure or discomfort. You have been prescribed antibiotics for a urinarytract infection. Antibiotics may bother your stomach, so try taking them with a light meal (unless instructed otherwise by your pharmacist). It is important to take them until they are finished. You can use wczu-dfr-geaosiy acetaminophen or ibuprofen if needed for pain. You should follow up with your Primary Care Physician or return to clinic if not improving in the next 3-5 days.02/11/2025 UTI (urinary tract infection), uncomplicated (ICD-10 - N39.0)Drink plenty of water. Avoid drinks like coffee, alcohol and soft frinks, as these can irritate your bladder and aggravate your frequent or urgent need to urinate. Apply a warm heating pad to your abdomen to minimize bladder pressure or discomfort. You have been prescribed antibiotics for a urinarytract infection. Antibiotics may bother your stomach, so try taking them with a light meal (unless instructed otherwise by your pharmacist). It is important to take them until they are finished. You c an use ablh-oyx-uhivkrw acetaminophen or ibuprofen if needed for pain. You should follow up with your Primary Care Physician or return to clinic if not improving in the next 3-5 days.06/17/2024Nasal congestion (ICD-10 - R09.81) 05/29/2024Nasal congestion (ICD-10 - R09.81)02/11/2025Dysuria (ICD-10 - R30.0) 02/11/2025Well adult (ICD-10 - Z00.00)11/04/2024Dysuria (ICD-10 - R30.0) Plan Of Treatment Pending Test Test Name Order Date UA (URINALYSIS, COMPLETE) 05/01/2023 HEMOGLOBIN A1C (GLYCO) 02/11/2025 IRON, TOTAL 02/11/2025 LIPID PANEL (CHOL/TRIG/HDL/LDL) 02/12/20 25 Urinalysis Microscopic 02/11/2025 Insulin Level 02/11/2025 CULTURE URINE 02/11/2025 CULTURE URINE 05/01/2023 THYROID PANEL (T4/TSH/FREE T3) CMP (COMP MET APONTE) w/eGFR CKD-EPI 2024 CBC WITH DIFF 02/11/2025 Insurance Providers Payer Name Payer Address Payer Phone Subscriber Number Group Number Insured Name Patient Relationship to Insured Coverage Start Date Coverage End Date [employer] PPO PLUS LOCAL PLAN [address] [place] [address] [id number] Nicolasa Bond Self - patient is the insured 3 Medications Administered Medication Instructions Date of Administration Dosage Notes Dexamethasone, 4mg/mL 2 mg Medical (General) History Medical History History ICD Code Over weight E66.3 Palpitations R00.2 Acute sinusitis J01.90 Streptococcal pharyngitis J02.0 Well adult Z00.00 Allergic rhinitis, seasonal J30.2
--- OUTSIDE RECORDS SUMMARY | 2025-04-05 19:33 | XMS_ITS | Clinical Summary ---
Author Organization incrediblue tem Address [id number] [address] [place] [address] Care Team Providers Care Animal Rehabilitator Name Role Phone Unavailable Primary Care Provider Unavailabl e Allergies No known active allergies Medications MedicationSigDispense QuantityRefillsLast FilledStart DateEnd DateStatus cetirizine (ZyrTEC) 10 mg tablet Take 10 mg by mouth in the morning.Active fluticasone propionate (FLONASE) 50 mcg/actuation nasal spray Administer 1 spray into each nostril daily.Active Active Problems No known active problems Family History Medical HistoryRelationNameCommentsHypertensionFatherOvarian cancerMaternal Aunt DiabetesMaternal GrandmotherHypertensionMotherUterine cancerMotherKidney cancer Paternal AuntRelationNameStatusCommentsFatherMaternal AuntAliveMaternal GrandmotherMotherPaternal AuntAlive Social History Tobacco UseTypesPacks/DayYears UsedDateSmoking Tobacco: NeverSmokeless Tobacco: NeverAlcohol UseStandard Drinks/WeekCommentsYes0 (1 standard drink = 0.6 oz pure alcohol)occasionalCommentsUnknownSex and Gender InformationValueDate RecordedSex Assigned at BirthNot on fileLegal KjsJhdgjn52/07/2022 11:14 AM EDT Gender IdentityNot on fileSexual OrientationNot on file Last Filed Vital Signs Vital SignReadingTime TakenCommentsBlood Adsshklw528/8207 11:18 AM EDT Ybuox7044 11:18 AM EDTTemperature--Respiratory Ganh2592 11:18 AM EDTOxygen Saturation--Inhaled Oxygen Concentration--Trqsix49.8 kg (176 lb) 12/19/2021 11:18 AM OWXKdviuu253 cm (5' 3 )12/19/2021 11:18 AM EDTBody Mass Index31.18012/19/2021 11:18 AM EDT Plan of Treatment Health MaintenanceDue DateLast DoneCommentsDepression Dlyxyqzwg62/10/1992Tobacco Azfkcrbdd04/10/1992Adult BMI Icvdqukpf54/10/1998Pap Smear01/17/2001COVID-19 Vaccine ( season)/, 09/26/2020Influenza Vaccine /, 03/14/2015DTaP,Tdap and Td Vaccines (2 - Td or Tdap) Medical Devices Not on file Insurance
--- OUTSIDE RECORDS SUMMARY | 2025-04-05 19:33 | XMS_ITS | Clinical Summary ---
Author Organization [facility] Address [address] [place] [address] Care Team Providers Care Harbor Police Launch Commander Name Role Phone Brayden Leone MD Primary Care Provider [phone] Allergies No known active allergies Medications MedicationSigDispense QuantityRefillsLast FilledStart DateEnd DateStatus cetirizine (ZyrTEC) 10 MG tablet Take 10 mg by mouth in the morning.Active mometasone (Nasonex) 50 MCG/ACT nasal spray Administer 2 sprays into each nostril in the morning.Active Encounters DateTypeDepartmentCare UmenJogoogkbfxl48/27/2025 4:00 PM EDTOffice Visit [facility] [address] [place] [address] Vince Escudero DO Pelvic pain in female (Primary Dx); Well woman exam with routine gynecological exam04/05/2025amboo flowsheet [facility] [address] [place] [address] Vince Escudero DO from Last 3 Months Family History Medical HistoryRelationNameCommentsDiabetesMaternal GrandmotherDiabetesMother Rheum arthritisMotherStrokeMotherUterine cancerMotherRelationNameStatusComments Maternal GrandmotherMother Social History Tobacco UseTypesPacks/DayYears UsedDateSmoking Tobacco: Never Tobacco Cessation:Counseling Given: Not Answered Alcohol UseStandard Drinks/WeekCommentsYes0 (1 standard drink = 0.6 oz pure alcohol)less than monthly , Caffeine intake: 1-2 cups per day coffee, soda/pop CommentsNoSex and Gender InformationValueDate RecordedSex Assigned at BirthNot on fileLegal IcbCmpndy29/15/2023 6:59 PM EDTGender IdentityNot on file Sexual OrientationNot on file Last Filed Vital Signs Vital SignReadingTime TakenCommentsBlood Nbthgfni218/8204/05/2025 4:13 PM EDT Pulse--Temperature--Respiratory Rate--Oxygen Saturation--Inhaled Oxygen Concentration--Dwugmq61.4 kg (186 lb)04/05/2025 4:13 PM VIQOtlofh481 cm (5' 3 ) 03/26/2023 9:23 AM EDTBody Mass Index32.9503/26/2023 9:23 AM EDT Plan of Treatment DateTypeDepartmentCare Team (Latest Contact Info)Zfyixdwxgrg90/18/2025 2:30 PM ESTAncillary Procedure [facility] [address] [place] [phone] 04/18/2026 4:00 PM ESTProcedure Visit [facility] [address] [phone] Vince Escudero, [address] [place], [place] [id number] Health MaintenanceDue DateLast DoneCommentsCT Gsflpeowwyau1980Colonoscopy 1980Colorectal Cancer Ikbypmljw1980FIT-DNA1980FIT1980 FOBT01/18/19801601Xssxmgbxywzjm1980MMR Vaccines (1 of 1 - Standard series) 01/17/1981DTaP/Tdap/Td Vaccines (1 - Tdap)01/17/1987Hepatitis B Vaccines (1 of 3 - 19+ 3-dose series)01/17/1999HPV Vaccines (1 - 3-dose SCDM series)01/17/2007 COVID-19 Vaccine (3 - season)/, 09/26/2020Influenza Vaccine (#1), 04/01/2020, 03/14/20154929Kydytgwxr24/16/2025 05/25/2024, 3Pap Smear, 3Cervical Cancer Efcmcxuyi39/17/2028HPV/Hkhqxs5003/26/2028HIB VaccinesAged OutNo longer eligible based on patient's age to complete this topicHepatitis A VaccinesAged OutNo longer eligible based on patient's age to complete this topicIPV VaccinesAged OutNo longer eligible based on patient's age to complete this topicMeningococcal B VaccineAged OutNo longer eligible based on patient's age to complete this topicMeningococcal VaccineAged OutNo longer eligible based on patient's age to complete this topicPneumococcal Vaccine: Pediatrics (0 to 5 Years) and At-Risk Patients (6 to 64 Years)Aged OutNo longer eligible based on patient's age to complete this topicRotavirus VaccinesAged OutNo longer eligible based on patient's age to complete this topic Procedures Procedure NamePriorityDate/TimeAssociated DiagnosisCommentsMM TOMOSYNTHESIS SCREENING BI05/25/2024 2:14 PM EST PAP QBFWTTwvoiso44/23/2024 12:00 AM EDTfrom Last 3 Months or Most Recently Relevant to Health Maintenance Results * MM TOMOSYNTHESIS SCREENING BI (05/25/2024 2:14 PM EST)Anatomical Region LateralityModalityOtherSpecimen (Source)Anatomical Location / Laterality Collection Method / VolumeCollection TimeReceived Time05/25/2024 2:14 PM EST Narrative 05/25/2024 2:15 PM EST [facility] ?[address] ? [place] [address] ? Mammography Report ? Signed ? Patient: NICOLASA RICHTER ? MR#: [id number] ?? : 1980 ?Acct:[id number] ?? Age/Sex: 44 / F ?ADM Date: 12/16/24 ?? Loc: MAMMO ? Attending Dr: Vince Escudero D.O. ? Ordering Physician: Vince Escudero D.O. ?Results: ? Date of Service: 05/25/24 ?Follow Up: ? Procedure(s): MM tomosynthesis screening BI ?? Accession Number(s): [id number] ? cc: Vince Escudero D.O.; Brayden Leone M.D. ? Patient Name: ? NICOLASA RICHTER ? MR#: [id number] ? : 1980 ? Exam Date: 05/25/2024 ?? Ordering Doctor: DR Vince Escudero . ? RADIOLOGY REPORT ? PROCEDURE: ? MM TOMOSYNTHESIS SCREENING BI ? COMPARISON: ? MM TOMOSYNTHESIS SCREENING BI, 05/21/2023. ??MG MAMM SCREEN 3D ?? DAYANNA CAD, 05/09/2022. ? INDICATIONS: ? Screening for malignant neoplasm ? Calculator Name ? NCI Breast Cancer Risk Assessment Tool ?? 5 Year Breast Cancer Risk ? 0.70% ?? Lifetime Breast Cancer Risk ? 9.40% ?? Personal Breast Cancer ?No ?? Personal Ovarian Cancer ? No ?? Treatments ? None ?? Family Cancers ? Aunt-maternal with ovarian cancer at age 58; Mother with ?? uterine cancer at age 34; Aunt-paternal with liver cancer at age ??50. ? LOCATION: ? [facility] ? BREAST COMPOSITION: ? There are scattered areas of fibroglandular density. ? FINDINGS: ? DIAGNOSTIC CATEGORY 1--NEGATIVE. NO CHANGE FROM COMPARISON ASSESSMENT. ? Scattered benign-appearing lymph nodes are present. ? RIGHT BREAST: ??No significant suspicious finding. ? LEFT BREAST: ??No significant suspicious finding. ? RECOMMENDATIONS: ? ROUTINE MAMMOGRAM AND CLINICAL EVALUATION IN 12 MONTHS. ? PLEASE NOTE: ??A NORMAL MAMMOGRAM DOES NOT EXCLUDE THE POSSIBILITY OF BREAST ?? CANCER. ??A CLINICALLY SUSPICIOUS PALPABLE LUMP SHOULD BE BIOPSIED. ? Dictated by: Kodi Pantoja MD on 05/25/2024 at 14:13 ? Approved by: Kodi Pantoja MD on 05/25/2024 at 14:14 ? Dictated By: ?Kodi Pantoja M.D. ? Signed By: ?12/16/24 1415 ? DD/ 1414 ? TD/TT: ? Kitchen Stewardess: Procedure Note Radiology, Radiologist, MD - 05/25/2024 [place] [address] Mammography Report Signed Patient: NICOLASA RICHTER LMR#: [id number] : 1980Acct:[id number] Age/Sex: 44 / FADM Date: 05/25/24 Loc: MAMMO Attending Dr: Vince Escudero D.O. Ordering Physician: Vince Escudero D.O.Results: Date of Service: 05/25/24Follow Up: Procedure(s): MM tomosynthesis screening BI Accession Number(s): [id number] cc: Vince Escudero D.O.; Brayden Leone M.D. Patient Name: NICOLASA RICHTER MR#: [id number] : 1980 Exam Date: 05/25/2024 Ordering Doctor: DR Vince Escudero . RADIOLOGY REPORT PROCEDURE: MM TOMOSYNTHESIS SCREENING BI COMPARISON: MM TOMOSYNTHESIS SCREENING BI, 05/21/2023. MG MAMM YTMKGR9V DAYANNA CAD, 05/09/2022. INDICATIONS: Screening for malignant neoplasm Calculator Name NCI Breast Cancer Risk Assessment Tool 5 Year Breast Cancer Risk 0.70% Lifetime Breast Cancer Risk 9.40% Personal Breast Cancer No Personal Ovarian Cancer No Treatments None Family Cancers Aunt-maternal with ovarian cancer at age 58; Motherwith uterine cancer at age 34; Aunt-paternal with liver cancer at age 50. LOCATION: [facility] BREAST COMPOSITION: There are scattered areas of fibroglandulardensity. FINDINGS: DIAGNOSTIC CATEGORY 1--NEGATIVE. NO CHANGE FROM COMPARISON ASSESSMENT. Scattered benign-appearing lymph nodes are present. RIGHT BREAST: No significant suspicious finding. LEFT BREAST: No significant suspicious finding. RECOMMENDATIONS: ROUTINE MAMMOGRAM AND CLINICAL EVALUATION IN 12 MONTHS. PLEASE NOTE: A NORMAL MAMMOGRAM DOES NOT EXCLUDE THE POSSIBILITY OFBREAST CANCER. A CLINICALLY SUSPICIOUS PALPABLE LUMP SHOULD BE BIOPSIED. Dictated by: Kodi Pantoja MD on 05/25/2024 at 14:13 Approved by: Kodi Pantoja MD on 05/25/2024 at 14:14 Dictated By: Kodi Pantoja M.D. Signed By:05/25/24 1415 DD/ 13 TD/TT: Kitchen Stewardess: Authorizing ProviderResult TypeResult StatusCorey Kena DOCLINISYNC IMAGINGFinal Result * Pap Smear (04/01/2024 12:00 AM EDT)Specimen (Source)Anatomical Location / LateralityCollection Method / VolumeCollection TimeReceived TimeSwabCervical swab / Unknown Narrative Authorizing ProviderResult TypeResult StatusFazio Nurse [facility] ObLAB CYTOLOGY ORDERABLESFinal ResultPerforming OrganizationAddressCity/State/ZIP CodePhone Number EXTERNAL LAB from Last 3 Months or Most Recently Relevant to Health Maintenance Insurance Care Teams Team MemberRelationshipSpecialtyStart DateEnd Date Brayden Leone MD [address] [place] [address] [facility] Jhivbazt14/17/23
== END 2025-04-05 19:29 | disposition home or self-care (01) ==
LOC: LAB 19:28
PROVIDERS: PCP Family Medicine; Visit Provider Obstetrics & Gynecology
DX: Z01.419 Encounter for gynecological examination (general) (routine) without abnormal findings (principal)
CPT/HCPCS: 87624; 88175

== ENCOUNTER 2025-05-27 12:54 | Outpatient (OUT) | payer BC, SELFPAY ==
--- OUTSIDE RECORDS SUMMARY | 2025-05-27 12:56 | XMS_ITS | Clinical Summary ---
Author Organization [facility] Address [address] [place] [address] Care Team Providers Care Nba Player Name Role Phone Brayden Lenoe MD Primary Care Provider [phone] Allergies No known active allergies Medications MedicationSigDispense QuantityRefillsLast FilledStart DateEnd DateStatus cetirizine (ZyrTEC) 10 MG tablet Take 10 mg by mouth in the morning.Active mometasone (Nasonex) 50 MCG/ACT nasal spray Administer 2 sprays into each nostril in the morning.Active Encounters DateTypeDepartmentCare EbsmNiwtepbpvkn45/10/2025Telephone [facility] [address] [place] [address] Ceci Echols MA 05/12/2025Telephone [facility] [address] [place] [address] Cammy Guallpa MA 04/28/2025Orders Only [facility] [address] [place] [address] Ceci Echols MA 04/27/2025 2:30 PM ESTAncillary Procedure [facility] [address] [place] [address] Pelvic pain in ekcoqr0704/05/2025 4:00 PM EDTOffice Visit [facility] [address] [facility] [place] [address] Vince Escudero DO Pelvic pain in female (Primary Dx); Well woman exam with routine gynecological exam04/05/2025linisync Result Encounter [facility] External Department Unsolicited Vince Escudero DO 04/05/2025amboo flowsheet [facility] [address] [place] [address] Vince Escudero DO from Last 3 Months Family History Medical HistoryRelationNameCommentsDiabetesMaternal GrandmotherDiabetesMother Rheum arthritisMotherStrokeMotherUterine cancerMotherRelationNameStatusComments Maternal GrandmotherMother Social History Tobacco UseTypesPacks/DayYears UsedDateSmoking Tobacco: Never Tobacco Cessation:Counseling Given: Not Answered Alcohol UseStandard Drinks/WeekCommentsYes0 (1 standard drink = 0.6 oz pure alcohol)less than monthly , Caffeine intake: 1-2 cups per day coffee, soda/pop CommentsNoSex and Gender InformationValueDate RecordedSex Assigned at BirthNot on fileLegal DxxRrirxt63/15/2023 6:59 PM EDTGender IdentityNot on file Sexual OrientationNot on file Last Filed Vital Signs Vital SignReadingTime TakenCommentsBlood Llkyvonj913/8204/05/2025 4:13 PM EDT Pulse--Temperature--Respiratory Rate--Oxygen Saturation--Inhaled Oxygen Concentration--Enntui67.4 kg (186 lb)04/05/2025 4:13 PM OMUIboidg962 cm (5' 3 ) 03/26/2023 9:23 AM EDTBody Mass Index32.9503/26/2023 9:23 AM EDT Plan of Treatment DateTypeDepartmentCare Team (Latest Contact Info)Wvllzjiybqd61/03/2026 2:30 PM ESTAncillary Procedure [facility] [address] [place] [address] 04/18/2026 4:00 PM ESTProcedure Visit [facility] [address] [place] [address] Vince Escudero, [address] [place] [address] Health MaintenanceDue DateLast DoneCommentsCT Nzgebelutxby1980Colonoscopy 1980Colorectal Cancer Ctmkzfkbw1980FIT-DNA1980FIT1980 FOBT01/18/19807246Rjmebbfgmuixc1980COVID-19 Vaccine ( season) /, 09/26/2020Influenza Vaccine (#1), 04/01/2020, 03/14/20152659Cgciwrqie94, 05/22/2023HPV/Cotest 03/26/2028Cervical Cancer Ypwaqvbij64/27/2028Pap Smear, 04/01/2024, 03/26/2023neumococcal Vaccine: Pediatrics (0 to 5 Years) and At- Risk Patients (6 to 64 Years)Aged OutNo longer eligible based on patient's age to complete this topic Procedures Procedure NamePriorityDate/TimeAssociated DiagnosisCommentsUS PELVIC COMPLETE W/ XLXvwiawy12/18/2025 3:06 PM EST Pelvic pain in female IGP,APTIMA HPV,AGE GGUOFbaldyq66/27/2025 4:03 PM EDT PAP TEST, MBOMGFBIIokxjls13/27/2025 12:00 AM EDTMM TOMOSYNTHESIS SCREENING BI 05/25/2024 2:14 PM EST from Last 3 Months or Most Recently Relevant to Health Maintenance Results * US Pelvis w/ TV (04/27/2025 3:06 PM EST)Anatomical RegionLateralityModality PelvisUltrasoundSpecimen (Source)Anatomical Location / LateralityCollection Method / VolumeCollection TimeReceived Time04/28/2025 1:45 PM EST Impressions 04/28/2025 2:30 PM EST 1. Follicular ovaries, right ovarian cyst 2. Normal uterus/endometrium TRANSCRIBED BY: ? ELECTRONICALLY SIGNED BY: Aquiles Joyner MD Narrative 04/28/2025 2:30 PM EST FINDINGS: Uterus ?9.1 x 4.7 x 5.6 cm Endometrium ? 7 mm Right ovary ?3.2 x 1.5 x 2.6 cm Left ovary ? 3.1 x 1.8 x 2.7 cm Normal uterine orientation and morphology are identified. ??No worrisome mass lesions are seen. ??No pelvic fluid is present. Bilateral ovaries demonstrate small peripheral follicles, unremarkable in appearance. ??Right ovarian 2.5 x 2.2 x 1.4 cm benign cyst. ?? Overall appearance is normal for this age. ?? Procedure Note Aquiles Joyner MD - 04/28/2025 FINDINGS: Uterus 9.1 x 4.7 x 5.6 cm Endometrium 7 mm Right ovary 3.2 x 1.5 x 2.6 cm Left ovary 3.1 x 1.8 x 2.7 cm Normal uterine orientation and morphology are identified. No worrisomemass lesions are seen. No pelvic fluid is present. Bilateral ovaries demonstrate small peripheral follicles, unremarkable in appearance. Right ovarian 2.5 x 2.2 x 1.4 cm benign cyst. Overall appearance is normal for this age. IMPRESSION: 1. Follicular ovaries, right ovarian cyst 2. Normal uterus/endometrium TRANSCRIBED BY: ELECTRONICALLY SIGNED BY: Aquiles Joyner MD Authorizing ProviderResult TypeResult StatusRaiza Canela NPOKLAHOMA CITY [facility]ET[facility] [place] PROCEDURES Final Result * IGP,APTIMA HPV,AGE GDLN (04/05/2025 4:03 PM EDT)ComponentValueRef RangeTest MethodAnalysis TimePerformed AtPathologist SignatureAGE GDLN ACOG TESTINGNote. TBHComment: ?? TESTS ? RESULT ??FLAG ??UNITS ?REF RANGE ??LAB ?? Clinician Provided Cytology Information ?? Source.............Cervix;Endocervix ?? No. of containers..01 ThinPrep Vial Age Algo ACOG Angeline... ??30-65 ? 01 ?FLAG LEGEND: ?L-Low Normal,H-High Normal,LL-Alert Low,HH-Alert High <-Panic Low,>-Panic High,A-Abnormal,AA-Critical Abnormal Performed at: 01 =G ?[facility] ?? [address] [place], [place] ??[phone] ?? Camila Boss MD, IGP, APTIMA HPV, RFX 16/18,45Note.TBHComment: ?? TESTS ? RESULT ??FLAG ??UNITS ?REF RANGE ??LAB DIAGNOSIS: ?02 ?? NEGATIVE FOR INTRAEPITHELIAL LESION OR MALIGNANCY. Specimen adequacy: ?02 ?? Satisfactory for evaluation. ??Endocervical and/or squamous metaplastic ?? cells (endocervical component) are present. Performed by: ? 02 ?? Bree Pak, Finishing Range Feeder (ASCP) . ? 02 Note: ? Note ?02 ?? The Pap smear is a screening test designed to aid in the ?? detection of premalignant and malignant conditions of the ?? uterine cervix. ??It is not a diagnostic procedure and ?? should not be used as the sole means of detecting cervical ?? cancer. ??Both false-positive and false-negative reports do ?? occur. Test Methodology: ? Note ?02 ?? This liquid based ThinPrep(R) pap test was interpreted ?? using the [facility](R) SimpleMistius(TM) Cervical Algorithm whole ?? slide imaging system. HPV Genotype Reflex ?? Note ?02 ?? Criteria not met, HPV Genotype not performed. ?FLAG LEGEND: ?L-Low Normal,H-High Normal,LL-Alert Low,HH-Alert High <-Panic Low,>-Panic High,A-Abnormal,AA-Critical Abnormal Performed at: 02 WB ?[facility] [place] ?? [address] [place], [place] ??[address] ?? Camila Boss MD, HPV APTIMANegativeNegativeTBHComment: This nucleic acid amplification test detects fourteen high- risk HPV types (16,18,31,33,35,39,45,51,52,56,58,59,66,68) without differentiation. Performed at: ??=G - [facility] ??[id number] Environmental Compliance Manager: Camila Boss MD, Phone: ??[phone] Performed at: ?? - [facility] ??[id number] Environmental Compliance Manager: Camila Boss MD, Phone: ??[phone] Specimen (Source)Anatomical Location / LateralityCollection Method / Volume Collection TimeReceived Time04/05/2025 4:03 PM EDT1 7:45 PM EDT Narrative [facility]IN[facility] - 04/09/2025 1:08 PM EDT BRUSH-SPATULA CERVIX ENDOCERVIX Authorizing ProviderResult TypeResult StatusCorey Kena DOLAB BLOOD ORDERABLES Final ResultPerforming OrganizationAddressCity/State/ZIP CodePhone Number CLINISYMN TBH * PAP TEST, EXTERNAL (04/05/2025 12:00 AM EDT) Narrative Authorizing ProviderResult TypeResult StatusCorey Kena DOLAB CYTOLOGY ORDERABLESFinal ResultPerforming OrganizationAddressCity/State/ZIP CodePhone Number EXTERNAL LAB * MM TOMOSYNTHESIS SCREENING BI (05/25/2024 2:14 PM EST)Anatomical Region LateralityModalityOtherSpecimen (Source)Anatomical Location / Laterality Collection Method / VolumeCollection TimeReceived Time05/25/2024 2:14 PM EST Narrative 05/25/2024 2:15 PM EST [facility] ?[address] ? [place] [address] ? Mammography Report ? Signed ? Patient: NICOLASA RICHTER ? MR#: [id number] ?? : 1980 ?Acct:[id number] ?? Age/Sex: 44 / F ?ADM Date: 05/25/24 ?? Loc: MAMMO ? Attending Dr: Vince Escudero D.O. ? Ordering Physician: Vince Escudero D.O. ?Results: ? Date of Service: 05/25/24 ?Follow Up: ? Procedure(s): MM tomosynthesis screening BI ?? Accession Number(s): [id number] ? cc: Vince Escudero D.O.; Brayden Leone M.D. ? Patient Name: ? NICOLASA RICHTER ? MR#: [id number] ? : 1980 ? Exam Date: 05/25/2024 [...] at age ??50. ? LOCATION: ? [facility] ? BREAST COMPOSITION: ? There are scattered [...] By: ?Kodi Pantoja M.D. ? Signed By: ?05/25/24 1415 ? DD/ 1414 ? TD/TT: ? Pyrometer Mechanic: Procedure Note Radiology, Radiologist, - 05/25/2024 [place] [address] Mammography Report Signed Patient: NICOLASA RICHTER R#: [id number] : 1980Acct:[id number] Age/Sex: 44 / FADM Date: 05/25/24 Loc: MAMMO Attending Dr: Vince Escudero D.O. Ordering Physician: Vince Escudero D.O.Results: Date of Service: 05/25/24Follow Up: Procedure(s): MM tomosynthesis screening BI Accession Number(s): [id number] cc: Vince Escudero D.O.; Brayden Leone M.D. Patient Name: NICOLASA RICHTER MR#: [id number] : 1980 Exam Date: 05/25/2024 Ordering Doctor: DR Vince Escudero . RADIOLOGY REPORT PROCEDURE: MM TOMOSYNTHESIS SCREENING BI COMPARISON: MM TOMOSYNTHESIS SCREENING BI, 05/21/2023. MG MAMM MDIKML0Z DAYANNA CAD, 05/09/2022. INDICATIONS: Screening for malignant neoplasm Calculator Name [facility] Breast Cancer Risk Assessment Tool 5 Year Breast Cancer Risk 0.70% Lifetime Breast Cancer Risk 9.40% Personal Breast Cancer No Personal Ovarian Cancer No Treatments None Family Cancers Aunt-maternal with ovarian cancer at age 58; Motherwith uterine cancer at age 34; Aunt-paternal with liver cancer at age 50. LOCATION: [facility] BREAST COMPOSITION: There are scattered [...] Kodi Pantoja M.D. Signed By:05/25/24 1415 DD/ 1414 TD/TT: Pyrometer Mechanic: Authorizing ProviderResult TypeResult StatusCorejose Escudero DOCLINISYSUSAN IMAGINGFinal Result from Last 3 Months or Most Recently Relevant to Health Maintenance Insurance Care Teams Team MemberRelationshipSpecialtyStart DateEnd Date Brayden Leone MD [address] [place] [address] [facility] Dtnepdvv00/17/23
--- OUTSIDE RECORDS SUMMARY | 2025-05-27 12:56 | XMS_ITS | Clinical Summary ---
Author Organization [employer] tem Address [id number] [address] [place] [address] Care Team Providers Care Shuttle Buggy Operator Name Role Phone Unavailable Primary Care Provider [...] InformationValueDate RecordedSex Assigned at BirthNot on fileLegal FuqFexlkh45/07/2022 11:14 AM EDT Gender IdentityNot on fileSexual OrientationNot on file Last Filed Vital Signs Vital SignReadingTime TakenCommentsBlood Rslyrvas389/8207 11:18 AM EDT Mizlt3781 11:18 AM EDTTemperature--Respiratory Eecl5357 11:18 AM EDTOxygen Saturation--Inhaled Oxygen Concentration--Zlohna15.8 kg (176 lb) 12/19/2021 11:18 AM VUIWlpjig633 cm (5' 3 )12/19/2021 11:18 AM EDTBody Mass Index31.18012/19/2021 11:18 AM EDT Plan of Treatment Health MaintenanceDue DateLast DoneCommentsDepression Babmklhcj06/10/1992Tobacco Gwqdiduov06/10/1992Adult BMI Whyfkefhn66/10/1998Pap Smear01/17/2001COVID-19 Vaccine ( season)/, 09/26/2020Influenza Vaccine /, 03/14/2015DTaP,Tdap and Td Vaccines (2 - Td or Tdap) Medical Devices Not on file Insurance
--- OUTSIDE RECORDS SUMMARY | 2025-05-27 12:56 | XMS_ITS | Encounter Summary ---
Author Organization [facility] Address [address] [place] [address] Care Team Providers Care Electroplater Apprentice Name Role Phone Brayden Leone MD Primary Care Provider [phone] Encounter Details DateTypeDepartmentCare Team (Latest Contact Info)Cblixaftonq17/10/2025Telephone [facility] [address] [place] [id number] Ceci Echols MA [address] [place] [address] Social History Tobacco UseTypesPacks/DayYears UsedDateSmoking Tobacco: NeverAlcohol UseStandard Drinks/WeekCommentsYes0 (1 standard drink = 0.6 oz pure alcohol)less than monthly , Caffeine intake: 1-2 cups per day coffee, soda/popCommentsNo Sex and Gender InformationValueDate RecordedSex Assigned at BirthNot on file Legal KgeAywpwb67/15/2023 6:59 PM EDTGender IdentityNot on fileSexual OrientationNot on filedocumented as of this encounter Miscellaneous Notes * Telephone Encounter - Caron Swanson LPN - 05/19/2025 4:13 PM EST 05/19/25 @ 4:14pm Referral has been faxed and patient will receive notification in the mail. If by the time she receives letter and has not heard from Dr. Ye's office then she can reach out. * Telephone Encounter - Ceci Echols MA - 05/19/2025 11:07 AM EST Patient called was wondering if her referral for a colonoscopy will be sent in for her. Pt discussed it w/Kena on her Wellness visit on 04/05/2025. Patient is just going for a screening to Dr. Ye. I advised pt that I will let Caron know about the referral request. PVU. documented in this encounter Plan of Treatment DateTypeDepartmentCare Team (Latest Contact Info)Bqrgolcytcx58/03/2026 2:30 PM ESTAncillary Procedure [facility] [address] [phone] 04/18/2026 4:00 PM ESTProcedure Visit [facility] [address] [place] [address] Vince Escudero DO [address] [place] [address] documented as of this encounter Visit Diagnoses Not on filedocumented in this encounter Care Teams Team MemberRelationshipSpecialtyStart DateEnd Date Brayden Leone MD [address] [facility] [place] [address] PCP - GeneralFamily Bzlgbdsa35/17/23documented as of this encounter
--- NOTE | 2025-05-27 12:57 | MM_ITS ---
Patient Name: NICOLASA COLBY MR#: [id number] : 1980 Exam Date: 05/27/2025 Ordering Doctor: DR JENNY MOYER . RADIOLOGY REPORT PROCEDURE: MM TOMOSYNTHESIS SCREENING BI COMPARISON: MM TOMOSYNTHESIS SCREENING BI, 05/25/2024. MM TOMOSYNTHESIS SCREENING BI, 05/21/2023. MG MAMM SCREEN 3D DAYANNA CAD, 05/09/2022. MG MAMM SCREEN 3D DAYANNA CAD, 04/27/2021. INDICATIONS: Screening for malignant neoplasm Calculator Name [facility] Breast Cancer Risk Assessment Tool 5 Year Breast Cancer Risk 0.80% Lifetime Breast Cancer Risk 9.30% Personal Breast Cancer No Personal Ovarian Cancer No Treatments None Family Cancers Aunt-maternal with ovarian cancer at age 58; Mother with uterine cancer at age 34; Aunt-paternal with liver cancer at age ~50. LOCATION: [facility] BREAST COMPOSITION: There are scattered areas of fibroglandular density. FINDINGS: DIAGNOSTIC CATEGORY 1--NEGATIVE. RIGHT BREAST: No significant suspicious finding. LEFT BREAST: No significant suspicious finding. RECOMMENDATIONS: ROUTINE MAMMOGRAM AND CLINICAL EVALUATION IN 12 MONTHS. Dictated by: Aquiles Mata DO on 05/27/2025 at 14:08 Approved by: Aquiles Mata DO on 05/27/2025 at 14:17
== END 2025-05-27 12:55 | disposition home or self-care (01) ==
LOC: MAMMO 12:54
PROVIDERS: PCP Family Medicine; Visit Provider Family Medicine
DX: Z12.31 Encounter for screening mammogram for malignant neoplasm of breast (principal); Z80.41 Family history of malignant neoplasm of ovary; Z80.8 Family history of malignant neoplasm of other organs or systems
CPT/HCPCS: 77063; 77067